=== PATIENT | male | born 1965 | race Caucasian/White ===

== ENCOUNTER 2017-12-18 21:00 | Inpatient (IN) | payer SELFPAY ==
[2017-12-18 21:43] LABS: #Basophils 0.1 thou/uL (0.0-0.2); #Eosinphils 0.2 thou/uL (0.0-0.7); #Lymphocytes 2.8 thou/uL (1.20-3.40); #Monocytes 0.5 thou/uL (0.11-0.59); #Neutrophils 6.8 thou/uL (1.40-6.50); %Basophils 0.7 % (0.0-1.0); %Eosinophils 1.7 % (0.0-10.0); %Lymphocytes 26.5 % (21.0-51.0); %Monocytes 5.2 % (0.0-10.0); %Neutrophils 65.9 % (42.0-75.0); Hemoglobin 13.8 g/dL (14.0-18.0); Mean Corpuscular HGB CONC 34.3 g/dL (32.0-36.0); Mean Corpuscular Hemoglobin 31.9 pg (27.0-31.0); Mean Corpuscular Volume 92.9 fL (78.0-98.0); Platelet Count 345 thou/uL (130-400); RBC Distribution Width 12.3 % (11.5-14.5); Red Blood Cell (RBC) Count 4.35 mill/uL (4.70-6.10); White Blood Cell (WBC) Count 10.4 thou/uL (4.8-10.8)
[2017-12-18 22:03] LABS: ALT (SGPT) 42 U/L (8-55); AST (SGOT) 28 U/L (5-34); Albumin 4.3 g/dL (3.5-5.0); Alkaline Phosphatase 66 U/L (40-150); Anion Gap 14 mmol/L (10-20); BUN (Urea Nitrogen) 15 mg/dL (8.4-25.7); Bilirubin, Total 0.4 mg/dL (0.2-1.2); CK (CPK) 312 U/L (30-200); Calc. Creatinine Clearance 0 mL/min (70-130); Calcium 9.4 mg/dL (7.8-10.44); Carbon Dioxide 22 mmol/L (22-29); Chloride 102 mmol/L (98-107); Estimated GFR-MDRD 80; Globulin 2.7 g/dL (2.4-3.5); Glucose 94 mg/dL (70-105); Lipase 13 U/L (8-78); Potassium 4.4 mmol/L (3.5-5.1); Sodium 134 mmol/L (136-145)
--- NOTE | 2017-12-18 22:04 | RAD ---
SINGLE VIEW OF THE CHEST: 12/18/17 COMPARISON: None. HISTORY: Chest pain that started three days ago. FINDINGS: Single view of the chest shows a normal sized cardiomediastinal silhouette. There is no evidence of c onsolidation, mass, or pleural effusion. The bones are unremarkable. IMPRESSION: No evidence of acute cardiopulmonary disease. POS: C
[2017-12-18 22:13] LABS: CKMB 4.9 ng/mL (0-6.6)
[2017-12-19 01:05] LABS: Troponin I 0.044 ng/mL (< 0.028)
[2017-12-19] MEDS ORDERED: Sodium Chloride 0.9% 1,000 ML IV SCH (02:13)
[2017-12-19] MEDS ORDERED: Ondansetron HCl/PF 4 MG/2 ML Vial IVP PRN (02:13)
[2017-12-19] MEDS ORDERED: Ondansetron ODT 4 MG TAB SL PRN (02:13)
[2017-12-19] MEDS ORDERED: Acetaminophen 325 MG TAB PO PRN (02:13)
[2017-12-19 02:38] VITALS: BMI 27.8
[2017-12-19] MEDS ORDERED: Clopidogrel Bisulfate 300 MG TAB PO SCH (02:45)
[2017-12-19] MEDS: Nitroglycerin 0.4 MG TAB (25 Tab Bottle) SL PRN ×3 (03:11→09:48)
[2017-12-19 05:02] LABS: Anion Gap 13 mmol/L (10-20); BUN (Urea Nitrogen) 14 mg/dL (8.4-25.7); Calc. Creatinine Clearance 100 mL/min (70-130); Calcium 9.2 mg/dL (7.8-10.44); Carbon Dioxide 23 mmol/L (22-29); Chloride 105 mmol/L (98-107); Estimated GFR-MDRD 71; Glucose 167 mg/dL (70-105); Potassium 3.7 mmol/L (3.5-5.1); Sodium 137 mmol/L (136-145)
[2017-12-19 05:06] LABS: Troponin I 0.016 ng/mL (< 0.028)
[2017-12-19 05:08] LABS: Band 1 % (5-11); Eosinophils 2 % (0-10); Hemoglobin 13.1 g/dL (14.0-18.0); Lymphocytes 37 % (21-51); MDiff Complete? YES; Mean Corpuscular HGB CONC 34.7 g/dL (32.0-36.0); Mean Corpuscular Hemoglobin 32.2 pg (27.0-31.0); Mean Corpuscular Volume 92.7 fL (78.0-98.0); Mean Platelet Volume 6.1 fL (7.4-10.4); Monocytes 3 % (0-10); Neutrophil 56 % (42-75); PLT Morphology Comment Appears Adequate; Platelet Count 266 thou/uL (130-400); RBC Distribution Width 12.3 % (11.5-14.5); Red Blood Cell (RBC) Count 4.09 mill/uL (4.70-6.10); White Blood Cell (WBC) Count 8.9 thou/uL (4.8-10.8)
[2017-12-19] MEDS ORDERED: Clopidogrel Bisulfate 75 MG TAB PO SCH (09:00)
[2017-12-19] MEDS ORDERED: Aspirin 325 mg Enteric Coated Tablet PO SCH (09:00)
[2017-12-19] MEDS ORDERED: Enoxaparin Sodium 100 MG/ML SYRINGE SC SCH (09:00)
[2017-12-19] MEDS: Lisinopril 10 MG TAB PO SCH ×2 (09:40→21:04)
[2017-12-19] MEDS: Famotidine 20 MG TAB PO SCH ×2 (09:41→21:08)
[2017-12-19] MEDS ORDERED: Nitroglycerin 2% Ointment 1 INCH/1 GM Packet TOP SCH ×2 (09:59→21:00)
[2017-12-19] MEDS ORDERED: Heparin 1,000 UNITS/ML VIAL SLOW IVP STA (09:59)
[2017-12-19] MEDS ORDERED: Lidocaine 1% (PF) 30 ML VIAL ONE (10:03)
[2017-12-19] MEDS ORDERED: Fentanyl 100 MCG/2 ML VIAL ONE ×2 (10:55→12:40)
[2017-12-19] MEDS ORDERED: Midazolam HCl 2 mg/2 ml Vial ONE (10:55)
[2017-12-19] MEDS ORDERED: Heparin 10,000 UNITS/1 ML VIAL ONE (10:55)
[2017-12-19] MEDS ORDERED: Nitroglycerin 2% Ointment 1 INCH/1 GM Packet ONE (10:55)
[2017-12-19] MEDS ORDERED: traMADol HCl 50 MG TAB PO PRN (11:45)
[2017-12-19] MEDS ORDERED: Acetaminophen/Codeine 30-300mg Tablet PO PRN (11:45)
[2017-12-19] MEDS ORDERED: Nitroglycerin 0.4 MG TAB (25 Tab Bottle) SL PRN (11:45)
[2017-12-19] MEDS ORDERED: Sodium Chloride 0.9% 200 ML IV SCH (11:45)
[2017-12-19] MEDS ORDERED: Nitroglycerin 50 MG/250 ML BOT 250 ML ONE (11:52)
[2017-12-19] MEDS: Metoprolol Tartrate 25 MG TAB PO SCH ×2 (11:56→21:04)
[2017-12-19] MEDS ORDERED: Nitroglycerin 50 MG/250 ML BOT 250 ML IVPB SCH ×2 (12:00→13:00)
[2017-12-19] MEDS ORDERED: Fentanyl 100 MCG/2 ML VIAL SLOW IVP PRN (13:00)
--- NOTE | 2017-12-19 13:07 | CON ---
DATE OF CONSULTATION: 12/19/2017 REASON FOR CONSULTATION: Chest pressure. HISTORY OF PRESENT ILLNESS: Mr. John Paul Manuel is a 52-year-old gentleman. The patient was admitted to [facility] with pressure in the middle of his chest going across his chest. It is coming and going. He said last night it was extremely intense. Apparently he did receive clopidogrel last night from what I can tell. He also initially thought he was aspirin allergic, but after further questioning, rashida werner said it just upset his stomach; therefore, he did receive aspirin. The patient has continued to stewart ve chest pressure, waxing and waning in the middle of his chest. Nitroglycerin seems to help. He al so says that seems to be worse when he takes a breath and it is somewhat better when he sits up. The patient's pain is persistent and he is diaphoretic intermittently. PAST MEDICAL HISTORY: He said he had a heart catheterization 8 or 9 years ago which did not show any obstructive stenosis. He does not know the ultimate diagnosis at that point. Apparently had a clos ure device at that point in the right groin. ALLERGIES: No true allergies known. He had some intolerance to aspirin with gastrointestinal upset. SOCIAL HISTORY: Quit smoking over a year ago. FAMILY HISTORY: Negative for heart disease at a young age. REVIEW OF SYSTEMS: CONSTITUTIONAL: No significant weight gain or loss. VISION: No changes. HEARING: No changes. PULMONARY: No cough or wheezing. GASTROINTESTINAL: No nausea, vomiting, diarrhea. SKIN: No rashes. NEUROLOGIC: No unilateral weakness or numbness. PSYCHIATRIC: No unusual depression or anxiety. HEMATOLOGIC: No unusual bruising. GENITOURINARY: No burning with urination. PHYSICAL EXAMINATION: GENERAL: This is a pleasant 52-year-old gentleman. He is in some discomfort with continued chest pa in. Nitroglycerin seems to improve the pain, but has not abolished it. The patient is somewhat appr ehensive. VITAL SIGNS: Blood pressure was elevated 162/74, pulse 68, regular. HEENT: Eyes; sclerae nonicteric. Mouth; mucous membranes moist. NECK: Supple, no lymphadenopathy. LUNGS: Clear, no wheezing, rales or rhonchi. CARDIAC: Normal S1, normal S2. There is no murmur, rub or gallop. ABDOMEN: Soft, nontender, no hepatosplenomegaly. EXTREMITIES: Warm, dry, no clubbing or cyanosis. There is no edema. Peripheral pulses; he has good posterior tibial pulses bilaterally. PERTINENT LABORATORY AND X-RAY FINDINGS: The EKG sinus rhythm, some rates as low as 61. There are no acute ST changes. PERTINENT LABORATORY: The troponin is a 0.020 with a peak of 0.044 for which he is in the indetermin ate range, but an increase from the initial. ASSESSMENT: Chest pressure at rest, unclear etiology. It seemed like this could either be unstable angina. There is also a possibility it could be pericardial in origin in view of the lack of EKG marla nges, also somewhat better with sitting up and worse with taking a breath, but at this time it is unc lear for sure what is causing his pain. The most definitive test is a heart catheterization, I would recommend that. I would not recommend stress testing in this gentleman with ongoing chest pain and indeterminate troponin. I discussed risk of the test with cardiac catheterization including stroke, heart attack, iodine allergy, loss of blood supply to the leg or kidney, stent thrombosis, stent rest enosis all discussed. The patient is not allergic to aspirin. PLAN: 1. Aspirin. 2. Nitrates. 3. Proceed to cardiac catheterization as outlined above. Risks explained. 4. If the patient does not have obstructive coronary artery disease we will give colchicine. I disc ussed the situation and indication for catheterization and he wishes to proceed.
--- NOTE | 2017-12-19 13:18 | HP ---
HISTORY OF PRESENT ILLNESS: This is a 52-year-old white male with past medical history of hypertension presenting with chest pain which has been ongoing for the past 3 days. Per the patient, he has been having this chest pain, but the pain has been intermittent and resolves on its own. However, at work, the patient developed this sudden chest pain which was constant, lasted for almost 25 minutes, was pressure-like in nature and the patient stated that the severity was 8/10 in nature and patient states that he went to his work nurse who took his blood pressure and blood pressure was 170 systolic and that prompted the patient to come to the ED. En route to the ED, the patient received aspirin and nitro. The patient's chest pain was relieved by the aspirin and nitro. The patient said that the pain was located substernal. REVIEW OF SYSTEMS: Positive for chest pain, shortness of breath otherwise as documented in the HPI. All other systems were reviewed and are negative. FAMILY HISTORY: The patient stated that mom at 59, mom had heart issues. The heart issues is not what killed mom, rather mom from liver transplant that went bad. PAST MEDICAL HISTORY: Hypertension. PAST SURGICAL HISTORY: Appendectomy and right ____ surgery repair. The patient states that he also had back surgery in 2006. SOCIAL HISTORY: The patient is a former tobacco smoker. The patient quit 10 years ago. ALLERGIES: No known drug allergies. CURRENT MEDICATIONS: The patient is on lisinopril 10 mg. PHYSICAL EXAMINATION: VITAL SIGNS: Blood pressure 126/96, pulse 83, respiratory rate 16, temperature 97. GENERAL APPEARANCE: The patient is lying in bed comfortably, does not appear to be in any acute distress. The patient is speaking full sentences. HEENT: Normocephalic, atraumatic. Pupils are equally round and reactive to light. Extraocular movements are intact. No scleral icterus. NECK: No JVD. Trachea is midline. Neck is supple. CARDIOVASCULAR: Positive S1, S2, regular rate and rhythm. No murmurs, no gallops or rubs appreciated. LUNGS: Clear to auscultation bilaterally. No wheezes, no rales, no rhonchi, appreciated. ABDOMEN: Nondistended, nontender, positive bowel sounds in all quadrants. There is no ecchymosis, no peritoneal signs noted. EXTREMITIES: Upper extremities and lower extremities 5/5 strength, good pulses bilaterally. NEUROLOGIC: Patient has no focal neurologic deficits noted. SKIN: Warm, dry and intact. No rashes appreciated. PSYCHIATRIC: Normal affect, alert, oriented x3. LABORATORY DATA: Pertinent positives; the patient had troponins that were 0.020 and went up 0.044. BNP is 10. Lipase is 13. Sodium 134. ASSESSMENT AND PLAN: 1. This is a 52-year-old male with typical chest pain, being admitted for non- ST-segment elevation myocardial infarction. At this point, we have the patient on aspirin, Plavix, Lovenox therapeutic, atorvastatin, lisinopril. We will continue the patient on these medications. We consulted Cardiology who ordered echo to be followed up. 2. Hypertension. We will continue the patient on home medication. MTDD
[2017-12-19] MEDS ORDERED: Iopamidol 370 76% 100 ML VIAL ONE (13:50)
[2017-12-19] MEDS ORDERED: DOPamine 400 MG/10 ML VIAL ONE (13:50)
[2017-12-19] MEDS ORDERED: Papaverine 60 MG/2 ML VIAL ONE (13:50)
[2017-12-19] MEDS ORDERED: Sodium Bicarb 50 MEQ/50 ML VIAL ONE (13:50)
[2017-12-19] MEDS ORDERED: Heparin 30,000 units/30 ml VIAL ONE (13:50)
[2017-12-19] MEDS ORDERED: Potassium Chloride 60 MEQ/30 ML VIAL ONE (13:50)
[2017-12-19] MEDS ORDERED: Lidocaine 2% PF 100 mg/5 ml Syringe ONE (13:50)
[2017-12-19] MEDS ORDERED: Mannitol 12.5 GM/50 ML ONE (13:50)
[2017-12-19] MEDS ORDERED: Thrombin 5000 UNITS/5 ML VIAL ONE (13:50)
[2017-12-19] MEDS ORDERED: Aminocaproic Acid 5 GM/20 ML VIAL ONE (13:50)
[2017-12-19] MEDS ORDERED: Heparin 5,000 UNITS/ML VIAL ONE (13:50)
[2017-12-19] MEDS ORDERED: Magnesium 5 GM/10 ML VIAL ONE (13:50)
[2017-12-19] MEDS ORDERED: Calcium Chloride 1 GM/10 ML Abboject SYRINGE ONE (13:50)
[2017-12-19] MEDS ORDERED: Protamine Sulfate 250 MG/25 ML VIAL ONE (13:50)
[2017-12-19] MEDS ORDERED: Diazepam 5 MG TAB PO PRN (14:37)
[2017-12-19] MEDS ORDERED: Communication Order-Pharmacy FS ONE (14:37)
[2017-12-19 16:07] LABS: Hemoglobin A1c 5.6 % (4.0-6.0)
--- NOTE | 2017-12-19 19:09 | CON ---
DATE OF CONSULTATION: 12/19/2017 REASON FOR CONSULTATION: Evaluate the patient for coronary artery bypass grafting. HISTORY OF PRESENT ILLNESS: Mr. Manuel is a 52-year-old gentleman who during work at [employer] b dulce to experience central chest pain. It was severe in nature. He had had multiple episodes over t he last 3 days of similar pain. This was more severe and he elected to come to the emergency departm ent. He was found to have indeterminate troponin levels. EKG was normal. Due to his pain, he was b rought to the cardiac cath lab manager and found to have tandem 70% lesions in his LAD. He also has a 70% lesion in OM3. I have been asked to see him to discuss coronary artery bypass grafting. Currently, he is rest ing comfortably without chest pain or shortness of breath in the recovery area. PAST MEDICAL HISTORY: Hypertension. PAST SURGICAL HISTORY: 1. Appendectomy. 2. Back surgery. 3. Right shoulder surgery x3. CURRENT MEDICATIONS: Lisinopril 10 mg every day. ALLERGIES: None. SOCIAL HISTORY: He quit smoking approximately a year ago. He does not use alcohol. He is a nd works at [employer]. REVIEW OF SYSTEMS: Ten point review of systems performed and is negative except as above. PHYSICAL EXAMINATION: GENERAL: Well-developed, well-nourished man resting comfortably in the cardiac cath lab manager recovery area. VITAL SIGNS: Height 5 feet 10 inches, weight 194 pounds, BSA is 2.09, temperature is 97.5, pulse is 68, blood pressure 162/74. HEENT: Sclerae nonicteric. Pupils equal, round bilaterally. NECK: Supple without bruit. CHEST: Clear bilaterally. HEART: Rhythm is regular without murmur. ABDOMEN: Soft and nontender without mass. EXTREMITIES: No cyanosis, clubbing or edema. VASCULAR: Palpable carotid, radial, femoral, dorsalis pedis, and posterior tibial pulses bilaterally . VENOUS: There are no venous varicosities or venous stasis changes. LYMPHATICS: No lymphedema or lymphadenopathy. PSYCHIATRIC: The patient is awake, alert, and oriented to person, place, and time. ASSESSMENT AND PLAN: This is a pleasant 52-year-old gentleman with severe left anterior descending, tandem stenoses and ostial OM3 lesion. I have discussed coronary artery bypass grafting with him. H e is agreeable to proceed. Risks, benefits, and options have been outlined. We will plan for surger y tomorrow.
[2017-12-19] MEDS ORDERED: Atorvastatin Calcium 40 MG TAB PO SCH (21:00)
[2017-12-19] MEDS: Acetaminophen/Codeine 30-300mg Tablet PO PRN (21:09)
--- NOTE | 2017-12-19 23:55 | PDOC.EVN ---
Event Note - Event Note Event Note: Spoke with cardiology pt going for cardiac cath today. Multiple attempts to see pt but pt not in room. Lab reviewed and cath reviewed. Pt will be evaluated by CT surgeon.
[2017-12-20] MEDS: Acetaminophen/Codeine 30-300mg Tablet PO PRN (04:49)
[2017-12-20] MEDS ORDERED: Albumin 5% 500 ML ONE (06:34)
[2017-12-20] MEDS ORDERED: Midazolam HCl 5 mg/5 ml Vial ONE (06:58)
[2017-12-20] MEDS ORDERED: Vecuronium 10 MG VIAL ONE ×2 (06:58→14:15)
[2017-12-20] MEDS ORDERED: Fentanyl 250 MCG/5 ML VIAL ONE (06:58)
[2017-12-20] MEDS ORDERED: Dexmedetomidine 200 MCG/2 ML VIAL ONE (06:58)
[2017-12-20] MEDS ORDERED: Heparin 10,000 UNITS/1 ML VIAL 30,000 UNITS in Sodium Chloride 0.9% 1,000 ML FS SCH (07:00)
[2017-12-20] MEDS ORDERED: CEFAZOLIN/Water 2 GM/20 ML SYRINGE ONE (07:18)
--- NOTE | 2017-12-20 07:24 | EKG ---
Test Reason : Blood Pressure : / mmHG Vent. Rate : 061 BPM Atrial Rate : 061 BPM P-R Int : 162 ms QRS Dur : 088 ms QT Int : 408 ms P-R-T Axes : 072 035 061 degrees QTc Int : 410 ms Normal sinus rhythm Normal ECG When compared with ECG of 18-DEC-2017 21:06, (Unconfirmed) No significant change was found Confirmed by DR. Darius WELLS ([id number]) on 12/20/2017 7:24:11 AM Referred By: ALVARO Confirmed By:DR. Darius WELLS
[2017-12-20] MEDS: Metoprolol Tartrate 25 MG TAB PO SCH (09:00)
[2017-12-20] MEDS ORDERED: Phenylephrine HCL 10 MG/ML VIAL ONE (09:06)
[2017-12-20] MEDS ORDERED: Fentanyl 100 MCG/2 ML VIAL ONE (11:03)
[2017-12-20 12:57] LABS: Actual Bicarbonate (HCO3a) 19.8 mEq/L (22-28); CO2 Tension 34.4 mmHg (35.0-45.0); O2 Tension (PaO2) 238.3 mmHg (80.0-100.0); pH, Arterial 7.38 (7.35-7.45)
[2017-12-20 12:58] LABS: Base Excess (BEa) -4.7 mEq/L (-2.0 to +3.0); Calcium, Ionized 1.16 mmol/L (1.12-1.30); Hemoglobin (Hb) 11.3 g/dL (14.0-18.0); Potassium - ABG Lab 4.4 mmol/L (3.70-5.30); Puncture Site ALINE
[2017-12-20] MEDS ORDERED: Acetaminophen 325 MG TAB PO PRN (12:59)
[2017-12-20] MEDS ORDERED: Fentanyl 100 MCG/2 ML VIAL SLOW IVP PRN (12:59)
[2017-12-20] MEDS ORDERED: Nitroglycerin 50 MG/250 ML BOT 250 ML IVPB PRN (12:59)
[2017-12-20] MEDS ORDERED: Promethazine HCl 25 MG/ML VIAL IM PRN (12:59)
[2017-12-20] MEDS ORDERED: Guaifenesin DM 100-10/5 ML UDCUP PO PRN (12:59)
[2017-12-20] MEDS ORDERED: Bisacodyl 5 MG TAB PO PRN (12:59)
[2017-12-20] MEDS ORDERED: Norepinephrine 8 MG/0.9% NS 250 ML IVPB PRN (12:59)
[2017-12-20] MEDS ORDERED: D5 1/2 NS w/20 mEq KCL 1,000 ML IV SCH (12:59)
[2017-12-20] MEDS ORDERED: hydrALAZINE 20 MG/ML VIAL SLOW IVP PRN (12:59)
[2017-12-20] MEDS ORDERED: Potassium Chloride 20 MEQ/100 ML PREMIX BAG IVPB PRN (12:59)
[2017-12-20] MEDS ORDERED: HYDROcodone/Acetaminophen 5/325 mg Tablet PO PRN (12:59)
[2017-12-20] MEDS ORDERED: Magnesium 2 GM/NS 0.9% 100 ML 2 GM in Premix Bag 1 BAG IVPB SCH (12:59)
[2017-12-20] MEDS ORDERED: Hetastarch 6% 500 ML 500 ML IVPB PRN (12:59)
[2017-12-20] MEDS ORDERED: Bisacodyl 10 MG SUPP PR PRN (12:59)
[2017-12-20] MEDS ORDERED: Mag-Al 1200 mg/1200 mg/30 ML UDCUP PO PRN (12:59)
[2017-12-20 13:11] LABS: #Eosinphils 0.1 thou/uL (0.0-0.7); #Lymphocytes 1.8 thou/uL (1.20-3.40); #Monocytes 0.9 thou/uL (0.11-0.59); %Basophils 0.3 % (0.0-1.0); %Eosinophils 0.5 % (0.0-10.0); %Lymphocytes 10.7 % (21.0-51.0); %Monocytes 5.3 % (0.0-10.0); %Neutrophils 83.3 % (42.0-75.0); Hemoglobin 10.8 g/dL (14.0-18.0); Mean Corpuscular HGB CONC 33.8 g/dL (32.0-36.0); Mean Corpuscular Hemoglobin 31.9 pg (27.0-31.0); Mean Corpuscular Volume 94.3 fL (78.0-98.0); Platelet Count 194 thou/uL (130-400); RBC Distribution Width 12.2 % (11.5-14.5); Red Blood Cell (RBC) Count 3.38 mill/uL (4.70-6.10); White Blood Cell (WBC) Count 16.8 thou/uL (4.8-10.8)
--- NOTE | 2017-12-20 13:16 | RAD ---
CHEST 1 VIEW: HISTORY: Post open heart surgery. COMPARISON: Radiograph 12/18/17. FINDINGS: The patient is intubated. The endotracheal tube tip is just below the level of the clavicles above t he mario. Central venous catheter with tip at the right atrium. Mediastinal drains are present. IMPRESSION: Expected postoperative findings without complication. POS: BECKY
[2017-12-20 13:19] LABS: INR-International Normal Ratio 1.3; PTT 36.6 SEC (22.9-36.1); Prothrombin Time 16.3 SEC (12.0-14.7)
[2017-12-20] MEDS ORDERED: Insulin Regular 300 UNITS/3 ML VIAL SC PRN (13:41)
[2017-12-20] MEDS ORDERED: Dextrose 50% Abboject 50 ML SYRINGE SLOW IVP PRN (13:41)
[2017-12-20] MEDS ORDERED: Dextrose 5% in Water 1,000 ML IV PRN (13:41)
[2017-12-20 13:47] LABS: Anion Gap 10 mmol/L (10-20); BUN (Urea Nitrogen) 10 mg/dL (8.4-25.7); Calc. Creatinine Clearance 149 mL/min (70-130); Calcium 7.8 mg/dL (7.8-10.44); Carbon Dioxide 19 mmol/L (22-29); Chloride 109 mmol/L (98-107); Estimated GFR-MDRD Greater than 90; Glucose 119 mg/dL (70-105); Potassium 4.5 mmol/L (3.5-5.1); Sodium 133 mmol/L (136-145)
[2017-12-20] MEDS: Ondansetron HCl/PF 4 MG/2 ML Vial IVP PRN ×2 (13:49→22:33)
[2017-12-20] MEDS ORDERED: PROPOFOL 200 MG/20 ML VIAL ONE (14:15)
[2017-12-20] MEDS ORDERED: Lidocaine 1% PF 5 ML VIAL ONE (14:15)
[2017-12-20] MEDS ORDERED: ePHEDrine/0.9% NaCl/PF SYRINGE 50 mg/10 ml ONE (14:15)
[2017-12-20] MEDS ORDERED: PHENYLEPHRINE-NS 100 MCG/ML 10 ML SYRINGE ONE (14:15)
[2017-12-20] MEDS: CEFAZOLIN/Water 2 GM/20 ML SYRINGE SLOW IVP SCH ×2 (14:31→22:33)
[2017-12-20 15:10] LABS: Actual Bicarbonate (HCO3a) 17.6 mEq/L (22-28); Base Excess (BEa) -6.9 mEq/L (-2.0 to +3.0); CO2 Tension 32.2 mmHg (35.0-45.0); Calcium, Ionized 1.15 mmol/L (1.12-1.30); Carboxyhemoglobin (COHb) 0.9 gm% (0.0-3.0); Hemoglobin (Hb) 11.8 g/dL (14.0-18.0); O2 Tension (PaO2) 118.3 mmHg (80.0-100.0); Potassium - ABG Lab 4.4 mmol/L (3.70-5.30); Puncture Site ALINE; pH, Arterial 7.36 (7.35-7.45)
[2017-12-20] MEDS ORDERED: Sodium Bicarb 50 MEQ/50 ML Abboject 8.4% SYRINGE ONE ×2 (15:16→15:18)
--- NOTE | 2017-12-20 15:23 | PRG ---
DATE OF SERVICE: 12/20/2017 SUBJECTIVE: Mr. Manuel is doing well postoperatively. He still on the ventilator. OBJECTIVE: LUNGS: Clear. CARDIAC: Normal S1, normal S2. EKG shows no acute changes. ASSESSMENT: Status post bypass, doing well. No changes at the present time.
--- NOTE | 2017-12-20 15:41 | PDOC.PN ---
- Subjective Encounter Start Date: 12/20/17 Encounter Start Time: 15:00 Subjective: f/u for CAD, s/p CABG x 3v today[facility] - Objective Resuscitation Status: Resuscitation Status FULL:Full Resuscitation MAR Reviewed: Yes Vital Signs & Weight: Vital Signs (12 hours) Temp Pulse Resp BP Pulse Ox 12/20/17 15:34 100 12/20/17 15:02 64 86/44 L 12/20/17 12:59 58 L 136/68 12/20/17 07:25 98.4 F 60 16 95 12/20/17 04:00 98.4 F Weight Weight 194 lb 0.108 oz Most Recent Monitor Data Heart Rate from ECG 63 NIBP 104/69 NIBP BP-Mean 80 Respiration from ECG 10 SpO2 96 I&O: 12/19/17 12/20/17 12/21/17 06:59 06:59 06:59 Intake Total 240 993 Output Total 1125 2250 Balance -885 -1257 Result Diagrams: 12/20/17 12:48 12/20/17 12:48 Additional Labs: Accuchecks 12/20/17 12/20/17 12/20/17 13:05 11:42 10:59 POC Glucose 108 117 H 129 H 12/20/17 12/20/17 12/20/17 10:27 09:38 08:13 POC Glucose 119 H 125 H 95 Laboratory Tests 12/18/17 12/19/17 12/19/17 21:32 04:10 04:10 WBC 8.9 Hgb 13.8 L 13.1 L Sodium 137 Hemoglobin A1c 12/19/17 04:10 WBC Hgb Sodium Hemoglobin A1c 5.6 Radiology Reviewed by me: Yes (PCXR - ETT and CVC in appropriate position) EKG Reviewed by me: Yes (Tele - SR) Phys Exam - Physical Examination opens eyes to name, moves arms HEENT: PERRLA, sclera anicteric, oral pharynx no lesions Neck: no nodes, no JVD, supple, full ROM Respiratory: no wheezing, no rales, no rhonchi, clear to auscultation bilateral S1, S2 Cardiovascular: RRR, no significant murmur, no rub, gallop Gastrointestinal: soft, non-tender, no distention, positive bowel sounds Musculoskeletal: no edema, pulses present sedate but opens eyes to name Skin: normal turgor, cap refill <2 seconds Deviation from normal: Almanzar with clear urine Dx/Plan (1) CAD (coronary artery disease) Code(s): I25.10 - ATHSCL HEART DISEASE OF [place] CORONARY ARTERY W/O ANG PCTRS Status: Acute Qualifiers: Associated angina: with unstable angina Comment: s/p CABG x 3v, continue supportive mgmt, ASA, statin, B-kamille (2) HTN (hypertension) Code(s): I10 - ESSENTIAL (PRIMARY) HYPERTENSION Status: Chronic Qualifiers: Hypertension type: essential hypertension Qualified Code(s): I10 - Essential (primary) hypertension Comment: Hypotension currently, continue low-dose B-kamille (3) HLD (hyperlipidemia) Code(s): E78.5 - HYPERLIPIDEMIA, UNSPECIFIED Status: Chronic Comment: Continue statin therapy (4) Status post coronary artery bypass graft Code(s): Z95.1 - PRESENCE OF AORTOCORONARY BYPASS GRAFT Status: Acute Comment: CABG x 3v, continue routine post-CABG protocol - Plan respiratory therapy, DVT proph w/SCDs Continue supportive mgmt -: Wean off mech vent as clinically tolerated -: Pain control -: ASA 325mg daily -: Lipitor 40mg daily * AM lab: BMP, CBC * PCXR in am
--- NOTE | 2017-12-20 16:20 | EKG ---
Test Reason : POST CABG Blood Pressure : / mmHG Vent. Rate : 061 BPM Atrial Rate : 061 BPM P-R Int : 162 ms QRS Dur : 082 ms QT Int : 432 ms P-R-T Axes : 069 058 027 degrees QTc Int : 434 ms Normal sinus rhythm Normal ECG When compared with ECG of 19-DEC-2017 06:52, T wave amplitude has increased in Lateral leads Confirmed by DR. Darius WELLS ([id number]) on 12/20/2017 4:19:43 PM Referred By: Keenan THAKKAR Confirmed By:DR. Darius WELLS
--- NOTE | 2017-12-20 16:36 | OP ---
DATE OF OPERATION: 12/20/2017 PREOPERATIVE DIAGNOSES: Coronary artery disease/hypertension. POSTOPERATIVE DIAGNOSES: Coronary artery disease/hypertension. PROCEDURE: Coronary artery bypass grafting x3: 1. Left internal mammary artery to 1.0 mm distal LAD - good conduit and small target. 2. Reverse saphenous vein to 1.0 mm diagonal - good conduit and small target. 3. Reverse saphenous vein to 1.0 mm OM3 - small conduit, small target. Note greater saphenous vein was harvested from both legs from the thigh and lower leg. Conduit was at a premium and the venous c onduit was marginal for most of the length. We were able to find a usable conduit for the 2 venous b ypass grafts. I would not consider him for redo bypass due to the size of his coronary arteries and conduit availability. SURGEON: Loco Torres M.D. ANESTHESIA: General endotracheal, Dr. Lexie Bland. PUMP TIME: 83 minutes. CROSS-CLAMP TIME: 44 minutes. LOW CORE TEMP: 32-degree Celsius. PANTOGRAPH I ENGRAVER: Adrian Regalado. DRAINS: 24-[place] chest tubes x2. DRIPS: None. TRANSFUSIONS: None. PROCEDURE IN DETAIL: After all consent was obtained, the patient was brought to the operating room a nd placed supine and sharp in table. Appropriate anesthesia monitor placed and general endotracheal anesthesia induced. Chest, abdomen, and legs were prepped and draped in usual sterile fashion. A le ngthy exploration was performed looking for usable venous conduit. Eventually, we had enough conduit to use for bypass graft. The vein was prepared for bypass. Wounds were irrigated and closed in lay ers. Median sternotomy was performed. Left internal mammary artery was harvested as a pedicle graft . The patient was systemically heparinized. Distal pedicle was divided and infused with papaverine. Thymic fat and pericardium were divided with electrocautery. Pericardial stay sutures were placed. Aortic and atrial cannulation was performed. After adequate heparinization, retrograde prime was p erformed. The patient was placed on cardiopulmonary bypass. Distal targets were marked. Aortic independent crop consultant ss-clamp was applied and antegrade sanguinous cardioplegic arrest obtained. One liter of antegrade c old cardioplegia was given. Topical cold solution was used. Reverse saphenous vein was anastomosed to the OM3 in end-to-side fashion with running 7-0 Prolene suture. A 1 mm probe passed proximally an d distally prior to completion of anastomosis. Anastomosis was tested and was hemostatic. Reverse s aphenous vein was anastomosed to the diagonal and end-to-side fashion with running 7-0 Prolene suture . A 1 mm probe passed proximally and distally prior to completion of the anastomosis. Anastomosis w as tested and was hemostatic. Mammary artery was brought the wound in the pericardium and anastomose d the distal LAD in end-to-side fashion with running 7-0 Prolene suture. Prior to completion of the anastomosis, a 1 mm probe passed proximally and distally. On release of mammary clamps, good hooding anastomosis and good distal flow. Pedicle was secured with interrupted 6-0 Prolene suture. Cross-c lamp was removed and partial occluding clamp placed. Saphenous vein to the OM was anastomosed to the aortic root. Saphenous vein to the diagonal was anastomosed to the sidewall of the OM graft. Parti al occlusion clamp was removed and grafts deaired. Anastomoses were inspected for hemostasis, which was good. The patient was warmed and weaned from cardiopulmonary bypass. After resumption of sinus rhythm, good hemodynamics, and temperature greater than 36.5, bypass was discontinued. Transfusions were given. Protamine was administered. Decannulation was performed and pursestring sutures secured . Vancomycin paste was placed on the sternal edges. After adequate hemostasis had been obtained, 24 -[place] chest tubes were placed in mediastinum. Sternum was closed with #7 wire. Sternum was treate d with platelet-rich plasma and wires twisted. Wounds were irrigated, treated with platelet-poor dennis sma, and closed in multiple layers. Needle, sponge, and instrument counts were all reported correct at the end of the procedure.
[2017-12-20] MEDS: Fentanyl 100 MCG/2 ML VIAL SLOW IVP PRN ×2 (17:14→20:54)
[2017-12-20] MEDS: Ketorolac Tromethamine 30 MG/ML VIAL IVP SCH ×2 (17:48→23:56)
[2017-12-20 18:53] LABS: Hemoglobin 10.9 g/dL (14.0-18.0)
[2017-12-20 19:06] LABS: Potassium 4.4 mmol/L (3.5-5.1)
[2017-12-20] MEDS: Famotidine/PF 20 mg/2ml Vial SLOW IVP SCH (20:54)
[2017-12-20] MEDS: HYDROcodone/Acetaminophen 5/325 mg Tablet PO PRN (22:33)
[2017-12-21 03:47] LABS: #Eosinphils 0.1 thou/uL (0.0-0.7); #Lymphocytes 1.8 thou/uL (1.20-3.40); #Monocytes 0.7 thou/uL (0.11-0.59); #Neutrophils 6.6 thou/uL (1.40-6.50); %Basophils 0.4 % (0.0-1.0); %Eosinophils 0.8 % (0.0-10.0); %Lymphocytes 19.2 % (21.0-51.0); %Monocytes 7.8 % (0.0-10.0); %Neutrophils 71.7 % (42.0-75.0); Hemoglobin 10.3 g/dL (14.0-18.0); Mean Corpuscular HGB CONC 34.1 g/dL (32.0-36.0); Mean Corpuscular Hemoglobin 32.1 pg (27.0-31.0); Mean Corpuscular Volume 94.2 fL (78.0-98.0); Mean Platelet Volume 6.3 fL (7.4-10.4); Platelet Count 193 thou/uL (130-400); RBC Distribution Width 12.5 % (11.5-14.5); White Blood Cell (WBC) Count 9.3 thou/uL (4.8-10.8)
[2017-12-21 04:11] LABS: Anion Gap 9 mmol/L (10-20); BUN (Urea Nitrogen) 9 mg/dL (8.4-25.7); Calc. Creatinine Clearance 138 mL/min (70-130); Calcium 7.9 mg/dL (7.8-10.44); Carbon Dioxide 22 mmol/L (22-29); Chloride 106 mmol/L (98-107); Estimated GFR-MDRD Greater than 90; Glucose 116 mg/dL (70-105); Potassium 4.1 mmol/L (3.5-5.1); Sodium 133 mmol/L (136-145)
[2017-12-21] MEDS: Ketorolac Tromethamine 30 MG/ML VIAL IVP SCH ×3 (04:32→17:54)
[2017-12-21] MEDS: HYDROcodone/Acetaminophen 5/325 mg Tablet PO PRN ×2 (04:33→11:30)
[2017-12-21] MEDS: Famotidine/PF 20 mg/2ml Vial SLOW IVP SCH ×2 (08:54→20:38)
[2017-12-21] MEDS: CEFAZOLIN/Water 2 GM/20 ML SYRINGE SLOW IVP SCH (08:55)
[2017-12-21] MEDS ORDERED: Aspirin 325 MG TAB PO SCH (09:00)
[2017-12-21] MEDS ORDERED: Magnesium 2 GM/NS 0.9% 100 ML 2 GM in Premix Bag 1 BAG IVPB SCH (09:00)
--- NOTE | 2017-12-21 09:19 | RAD ---
SEMIUPRIGHT PORTABLE CHEST 1 VIEW: HISTORY: A 52-year-old male with a history of postop open heart followup. COMPARISON: 12/20/17. FINDINGS: Postop midline sternotomy with right subclavian catheter and chest tube in place. Minimal linear str anding in both lung bases and some pleural effusion changes in the left base, postoperative. No new process. IMPRESSION: Stable chest with some postoperative changes. No significant new process. POS: BECKY
--- NOTE | 2017-12-21 10:27 | PDOC.PN ---
- Subjective Encounter Start Date: 12/21/17 Encounter Start Time: 10:26 Mr. Manuel was seen today in follow-up of CAD. He is post CABG, and is noting a bit of soreness in his chest, but denies dyspnea, and denies feeling dizzy or lightheaded. - Objective Resuscitation Status: Resuscitation Status FULL:Full Resuscitation MAR Reviewed: Yes Vital Signs & Weight: Vital Signs (12 hours) Temp Pulse Resp Pulse Ox 12/21/17 07:40 98.5 F 12/21/17 07:15 98.7 F 90 20 100 12/21/17 06:57 99 12/21/17 03:00 98.7 F 12/20/17 23:59 98.5 F Weight Weight 203 lb 4.259 oz Most Recent Monitor Data Heart Rate from ECG 89 NIBP 145/81 NIBP BP-Mean 95 Respiration from ECG 23 SpO2 96 I&O: 12/20/17 12/21/17 12/22/17 06:59 06:59 06:59 Intake Total 993 5879 260 Output Total 2257 2759 285 Balance -1257 -670 -25 Result Diagrams: 12/21/17 03:30 12/21/17 03:30 Additional Labs: Accuchecks 12/21/17 12/21/17 12/20/17 08:46 03:30 23:56 POC Glucose 101 112 H 104 12/20/17 12/20/17 12/20/17 21:01 17:23 13:05 POC Glucose 115 H 134 H 108 12/20/17 12/20/17 12/20/17 11:42 10:59 10:27 POC Glucose 117 H 129 H 119 H Phys Exam - Physical Examination HEENT: PERRLA, sclera anicteric Respiratory: no wheezing, no rales, no rhonchi + decreased breath sounds at the bases Cardiovascular: RRR, no significant murmur, no rub no gallop Gastrointestinal: soft, non-tender, no distention, positive bowel sounds Musculoskeletal: no edema Dx/Plan (1) CAD (coronary artery disease) Code(s): I25.10 - ATHSCL HEART DISEASE OF [place] CORONARY ARTERY W/O ANG PCTRS Status: Acute Qualifiers: Associated angina: with unstable angina Comment: s/p CABG x 3v, continue supportive mgmt, ASA, statin, B-kamille (2) HTN (hypertension) Code(s): I10 - ESSENTIAL (PRIMARY) HYPERTENSION Status: Chronic Qualifiers: Hypertension type: essential hypertension Qualified Code(s): I10 - Essential (primary) hypertension Comment: Hypotension currently, continue low-dose B-kamille (3) HLD (hyperlipidemia) Code(s): E78.5 - HYPERLIPIDEMIA, UNSPECIFIED Status: Chronic Comment: Continue statin therapy (4) Status post coronary artery bypass graft Code(s): Z95.1 - PRESENCE OF AORTOCORONARY BYPASS GRAFT Status: Acute Comment: CABG x 3v, continue routine post-CABG protocol - Plan * CAD- with unstable angina- he was found to have 2 vessel CAD- with 70% tenosis in the LAD and OM3 and he is s/p 3 vessel CABG * He is clinically stable, blood pressure and heart rate are stable * Blood glucose is stable * HTN- blood pressure is again stable on low dose Lisinopril, Metoprolol has been held * Continue as per CV- surgery.
--- NOTE | 2017-12-21 19:20 | EKG ---
Test Reason : Blood Pressure : / mmHG Vent. Rate : 078 BPM Atrial Rate : 078 BPM P-R Int : 162 ms QRS Dur : 088 ms QT Int : 362 ms P-R-T Axes : 060 053 062 degrees QTc Int : 412 ms Normal sinus rhythm Normal ECG Confirmed by MARY PARRA DO ([id number]), editor city ALEKS AGUILAR ([id number]) on 12/21/2017 7:19:48 PM Referred By: Confirmed By:MARY PARRA DO
[2017-12-21] MEDS ORDERED: Non-Formulary Item 1 EACH (Lovastatin [Lovastatin] 10 MG) PO SCH (21:00)
[2017-12-21] MEDS ORDERED: Simvastatin 5 MG TAB PO SCH (21:00)
[2017-12-21] MEDS: Fentanyl 100 MCG/2 ML VIAL SLOW IVP PRN (22:16)
[2017-12-22] MEDS: Ketorolac Tromethamine 30 MG/ML VIAL IVP SCH ×2 (00:27→05:57)
[2017-12-22 05:33] LABS: #Eosinphils 0.1 thou/uL (0.0-0.7); #Lymphocytes 2.5 thou/uL (1.20-3.40); #Monocytes 1.3 thou/uL (0.11-0.59); #Neutrophils 7.3 thou/uL (1.40-6.50); %Basophils 0.3 % (0.0-1.0); %Eosinophils 0.6 % (0.0-10.0); %Lymphocytes 22.3 % (21.0-51.0); %Monocytes 11.4 % (0.0-10.0); %Neutrophils 65.5 % (42.0-75.0); Hemoglobin 9.3 g/dL (14.0-18.0); Mean Corpuscular HGB CONC 33.6 g/dL (32.0-36.0); Mean Corpuscular Hemoglobin 31.7 pg (27.0-31.0); Mean Corpuscular Volume 94.6 fL (78.0-98.0); Mean Platelet Volume 6.4 fL (7.4-10.4); Platelet Count 162 thou/uL (130-400); RBC Distribution Width 12.4 % (11.5-14.5); Red Blood Cell (RBC) Count 2.94 mill/uL (4.70-6.10); White Blood Cell (WBC) Count 11.1 thou/uL (4.8-10.8)
[2017-12-22 05:41] LABS: Anion Gap 9 mmol/L (10-20); BUN (Urea Nitrogen) 7 mg/dL (8.4-25.7); Calc. Creatinine Clearance 150 mL/min (70-130); Calcium 8.3 mg/dL (7.8-10.44); Carbon Dioxide 26 mmol/L (22-29); Chloride 105 mmol/L (98-107); Estimated GFR-MDRD Greater than 90; Glucose 95 mg/dL (70-105); Sodium 136 mmol/L (136-145)
--- NOTE | 2017-12-22 07:57 | PDOC.PN ---
- Subjective Encounter Start Date: 12/22/17 Encounter Start Time: 07:56 Mr. Manuel was seen today in follow-up of CAD and post CABG. He says he is feeling better today. He has coughed up a little phlem. He denies chest pain or dyspnea. - Objective Resuscitation Status: Resuscitation Status FULL:Full Resuscitation MAR Reviewed: Yes Vital Signs & Weight: Vital Signs (12 hours) Temp 12/22/17 07:00 98.7 F 12/22/17 04:00 99.2 F 12/22/17 00:00 98.4 F 12/21/17 20:00 98.2 F Weight Weight 199 lb 1.239 oz Most Recent Monitor Data Heart Rate from ECG 92 NIBP 123/70 NIBP BP-Mean 92 Respiration from ECG 17 SpO2 97 I&O: 12/21/17 12/22/17 12/23/17 06:59 06:59 06:59 Intake Total 2089 1550 Output Total 2759 2950 300 Balance -670 1400 -300 Result Diagrams: 12/22/17 05:22 12/22/17 05:22 Additional Labs: Accuchecks 12/21/17 08:46 POC Glucose 101 Phys Exam - Physical Examination HEENT: PERRLA, sclera anicteric Respiratory: no wheezing, no rales, no rhonchi decreased breath sounds at the bases, coarse breath sounds bilaterally Cardiovascular: RRR, no significant murmur, no rub no gallop Gastrointestinal: soft, non-tender, no distention, positive bowel sounds Musculoskeletal: no edema Dx/Plan (1) CAD (coronary artery disease) Code(s): I25.10 - ATHSCL HEART DISEASE OF [place] CORONARY ARTERY W/O ANG PCTRS Status: Acute Qualifiers: Associated angina: with unstable angina Comment: s/p CABG x 3v, continue supportive mgmt, ASA, statin, B-kamille (2) HTN (hypertension) Code(s): I10 - ESSENTIAL (PRIMARY) HYPERTENSION Status: Chronic Qualifiers: Hypertension type: essential hypertension Qualified Code(s): I10 - Essential (primary) hypertension Comment: Hypotension currently, continue low-dose B-kamille (3) HLD (hyperlipidemia) Code(s): E78.5 - HYPERLIPIDEMIA, UNSPECIFIED Status: Chronic Comment: Continue statin therapy (4) Status post coronary artery bypass graft Code(s): Z95.1 - PRESENCE OF AORTOCORONARY BYPASS GRAFT Status: Acute Comment: CABG x 3v, continue routine post-CABG protocol - Plan * CAD- s/p CABG- he is clinically stable- blood pressure and heart rate have been good. * He likely will be moved out of the ICU- * HTN- blood pressure is stable- continue Lisinopril * Continue aspirin and satin therapy * Continue Cardiac Rehab.
[2017-12-22] MEDS ORDERED: Mineral Oil ENEMA PR PRN (08:19)
[2017-12-22] MEDS ORDERED: Milk Of Magnesia 30 ML UDCUP PO PRN (08:19)
[2017-12-22] MEDS ORDERED: Mag-Al 1200 mg/1200 mg/30 ML UDCUP PO PRN (08:19)
[2017-12-22] MEDS ORDERED: Ondansetron HCl/PF 4 MG/2 ML Vial IVP PRN (08:19)
[2017-12-22] MEDS ORDERED: Nitroglycerin 0.4 MG TAB (25 Tab Bottle) SL PRN (08:19)
[2017-12-22] MEDS ORDERED: Guaifenesin DM 100-10/5 ML UDCUP PO PRN (08:19)
[2017-12-22] MEDS ORDERED: Acetaminophen 325 MG TAB PO PRN (08:19)
[2017-12-22] MEDS ORDERED: Bisacodyl 10 MG SUPP PR PRN (08:19)
[2017-12-22] MEDS ORDERED: Potassium Chloride 10 MEQ TAB PO SCH (08:19)
[2017-12-22] MEDS ORDERED: Fentanyl 100 MCG/2 ML VIAL SLOW IVP PRN (08:19)
[2017-12-22] MEDS: Metoprolol Tartrate 25 MG TAB PO SCH ×2 (08:51→20:24)
[2017-12-22] MEDS: Aspirin 325 mg Enteric Coated Tablet PO SCH (08:51)
[2017-12-22] MEDS: Furosemide 40 MG TAB PO SCH (08:51)
[2017-12-22] MEDS: Famotidine 20 MG TAB PO SCH ×2 (08:51→20:23)
[2017-12-22] MEDS ORDERED: Lisinopril 2.5 MG TAB PO SCH (09:00)
--- NOTE | 2017-12-22 09:46 | RAD ---
SEMIUPRIGHT PORTABLE CHEST 1 VIEW: HISTORY: A 52-year-old male with a history of postop open heart. FINDINGS: Some progressive-appearing pleural and parenchymal changes in the left base. Chest tube and right santiago bclavian catheter is in place. No pneumothorax. IMPRESSION: Some progressive pleural and parenchymal opacity changes in the left base. Continued short-term foll owup. POS: ARNIE
[2017-12-22] MEDS: HYDROcodone/Acetaminophen 5/325 mg Tablet PO PRN ×3 (10:20→20:25)
--- NOTE | 2017-12-22 19:00 | PDOC.CTH ---
<Karin Stanley - Last Filed: 12/22/17 18:58> Cardiology Progress Note - Subjective The pt seen and examined. No overnight events. No cardiac complaints. He cont. having intermittent pain to surgical site. - Objective Vital Signs Temp Pulse Pulse Pulse Resp BP BP 12/22/17 15:34 99.1 F 83 18 12/22/17 14:30 12/22/17 12:13 77 80 121/68 129/70 12/22/17 11:00 98.4 F 12/22/17 09:04 90 85 120/67 128/64 12/22/17 08:00 98.7 F 94 12 12/22/17 07:00 98.7 F BP Pulse Ox Pulse Ox Pulse Ox 12/22/17 15:34 131/67 100 12/22/17 14:30 100 12/22/17 12:13 98 97 12/22/17 11:00 12/22/17 09:04 99 99 12/22/17 08:00 100 12/22/17 07:00 Weight 199 lb 1.239 oz 12/21/17 12/22/17 12/23/17 06:59 06:59 06:59 Intake Total 2089 1550 1080 Output Total 7089 2950 1850 Balance -508 -0953 -282 - Physical Examination General/Neuro: alert & oriented x3 Neck: no JVD present Lungs: CTA Heart: RRR Abdomen: soft Extremities: other: (No edema) - Telemetry Telemetry Rhythm: SR - Labs Result Diagrams: 12/22/17 05:22 12/22/17 05:22 Troponin/CKMB CK-MB (CK-2) 4.9 ng/mL (0-6.6) 12/18/17 21:32 Troponin I 0.016 ng/mL (< 0.028) 12/19/17 04:10 - Assessment/Plan 1. CAD with s/p CABG x3 with SINGH-LAD, RSV-diag adn OM3 - stable with Metoprolol 12.5mg BID, ASA 325mg, Lipitor; EF > 60% by cath. 2. HTN - stable with current med. 3. Hyperlipidemia - on Statin. MAR reviewed * Per Dr Torres, the pt is not good candidate for re-do CABG in future. * Review of Systems - Review of Systems Constitutional: reports: weakness EENTM: reports: no symptoms reported Respiratory: reports: no symptoms reported Cardiac (ROS): reports: no symptoms reported ABD/GI: reports: no symptoms reported : reports: no symptoms reported Musculoskeletal: reports: no symptoms reported Skin: reports: no symptoms reported <Ruiz Sepulvedaan - Last Filed: 12/22/17 19:41> Cardiology Progress Note - Objective Vital Signs Temp Pulse Pulse Pulse Resp BP BP 12/22/17 15:34 99.1 F 83 18 12/22/17 14:30 12/22/17 12:13 77 80 121/68 129/70 12/22/17 11:00 98.4 F 12/22/17 09:04 90 85 120/67 128/64 12/22/17 08:00 98.7 F 94 12 BP Pulse Ox Pulse Ox Pulse Ox 12/22/17 15:34 131/67 100 12/22/17 14:30 100 12/22/17 12:13 98 97 12/22/17 11:00 12/22/17 09:04 99 99 12/22/17 08:00 100 Weight 199 lb 1.239 oz 12/21/17 12/22/17 12/23/17 06:59 06:59 06:59 Intake Total 2089 1550 1580 Output Total 2759 2950 1850 Balance -555 -3603 -270 - Labs Result Diagrams: 12/22/17 05:22 12/22/17 05:22 Troponin/CKMB CK-MB (CK-2) 4.9 ng/mL (0-6.6) 12/18/17 21:32 Troponin I 0.016 ng/mL (< 0.028) 12/19/17 04:10 - Assessment/Plan Pt. seen and eval. by me. I agree with the A/P by the JOINT SUPERVISOR.He continues to do well. Chest clear. RRR.
[2017-12-22] MEDS: Atorvastatin Calcium 20 MG TAB PO SCH (20:23)
[2017-12-22] MEDS ORDERED: Simvastatin 40 MG TAB PO SCH (21:00)
[2017-12-23] MEDS: HYDROcodone/Acetaminophen 5/325 mg Tablet PO PRN ×3 (06:28→21:43)
[2017-12-23] MEDS: Bisacodyl 5 MG TAB PO PRN ×2 (08:27→22:49)
[2017-12-23] MEDS: Famotidine 20 MG TAB PO SCH ×2 (08:28→21:42)
[2017-12-23] MEDS: Aspirin 325 mg Enteric Coated Tablet PO SCH (08:28)
[2017-12-23] MEDS: Metoprolol Tartrate 25 MG TAB PO SCH ×2 (08:28→21:43)
[2017-12-23] MEDS: Potassium Chloride 10 MEQ TAB PO SCH (08:28)
[2017-12-23] MEDS: Furosemide 40 MG TAB PO SCH (08:28)
[2017-12-23] MEDS ORDERED: Lisinopril 5 MG TAB PO SCH (09:00)
--- NOTE | 2017-12-23 12:24 | PDOC.PN ---
- Subjective Encounter Start Date: 12/23/17 Encounter Start Time: 12:22 Mr. Manuel was seen today in follow-up of CAD. He is complaining of some pain in the right side of his chest and going to the center of his shoulder blades. He also notes a little dyspnea. - Objective Resuscitation Status: Resuscitation Status FULL:Full Resuscitation MAR Reviewed: Yes Vital Signs & Weight: Vital Signs (12 hours) Temp Pulse Pulse Pulse Resp BP BP 12/23/17 09:56 82 80 119/65 104/58 L 12/23/17 08:00 98.6 F 88 16 12/23/17 05:52 12/23/17 04:00 98.9 F 90 18 BP BP Pulse Ox Pulse Ox Pulse Ox 12/23/17 09:56 98 94 L 12/23/17 08:00 118/59 L 93 L 12/23/17 05:52 92 L 12/23/17 04:00 127/61 92 L Weight Weight 199 lb 3 oz Most Recent Monitor Data Heart Rate from ECG 89 NIBP 120/59 NIBP BP-Mean 71 Respiration from ECG 17 SpO2 100 I&O: 12/22/17 12/23/17 12/24/17 06:59 06:59 06:59 Intake Total 1550 2940 Output Total 2950 2775 Balance -1400 165 Result Diagrams: 12/22/17 05:22 12/22/17 05:22 Phys Exam - Physical Examination HEENT: PERRLA Respiratory: no wheezing, no rales, no rhonchi, clear to auscultation bilateral Cardiovascular: RRR, no significant murmur, no rub Gastrointestinal: soft, non-tender, no distention, positive bowel sounds Musculoskeletal: no edema Dx/Plan (1) CAD (coronary artery disease) Code(s): I25.10 - ATHSCL HEART DISEASE OF [place] CORONARY ARTERY W/O ANG PCTRS Status: Acute Qualifiers: Associated angina: with unstable angina Comment: s/p CABG x 3v, continue supportive mgmt, ASA, statin, B-kamille (2) HTN (hypertension) Code(s): I10 - ESSENTIAL (PRIMARY) HYPERTENSION Status: Chronic Qualifiers: Hypertension type: essential hypertension Qualified Code(s): I10 - Essential (primary) hypertension Comment: Hypotension currently, continue low-dose B-kamille (3) HLD (hyperlipidemia) Code(s): E78.5 - HYPERLIPIDEMIA, UNSPECIFIED Status: Chronic Comment: Continue statin therapy (4) Status post coronary artery bypass graft Code(s): Z95.1 - PRESENCE OF AORTOCORONARY BYPASS GRAFT Status: Acute Comment: CABG x 3v, continue routine post-CABG protocol - Plan * CAD - patient is s/p CABG. His blood pressure and heart rate are stable * HTN- blood pressure is stable * Hyperlipidemia- continue lipitor * Chest discomfort- will monitor, I suspect he may have some atelectasis- if it persists will repeat CXR in the AM.
[2017-12-23] MEDS ORDERED: Metolazone 5 MG TAB PO SCH (12:30)
[2017-12-23] MEDS: Atorvastatin Calcium 20 MG TAB PO SCH (21:42)
[2017-12-24] MEDS ORDERED: Metolazone 5 MG TAB PO SCH (06:00)
[2017-12-24] MEDS ORDERED: Aspirin 81 mg Enteric Coated Tablet PO SCH (09:00)
[2017-12-24] MEDS ORDERED: Clopidogrel Bisulfate 75 MG TAB PO SCH (09:00)
[2017-12-24] MEDS: Potassium Chloride 10 MEQ TAB PO SCH (10:26)
[2017-12-24] MEDS: Famotidine 20 MG TAB PO SCH (10:26)
[2017-12-24] MEDS: Metoprolol Tartrate 25 MG TAB PO SCH (10:27)
[2017-12-24] MEDS: Furosemide 40 MG TAB PO SCH (10:27)
--- NOTE | 2017-12-24 11:22 | DIS ---
DIAGNOSES: 1. Coronary artery disease. 2. Hyperlipidemia. PROCEDURES: 1. Cardiac catheterization. 2. Coronary bypass grafting x3 - 1) Left internal mammary artery to left anterior descending; 2) re verse saphenous vein to diagonal; 3) reverse saphenous vein to OM 3. DESCRIPTION OF HOSPITAL STAY: Mr. Manuel is a 52-year-old gentleman who came through the emergency dep artment with central chest pain. Troponins were indeterminate. EKG was normal. He underwent cardia c catheterization revealing severe left-sided disease. He underwent bypass on 12/19/2017 and has don e well postoperatively. He has had no rhythm disturbances. At the time of discharge he is ambulator y, tolerating regular diet, having good bowel and bladder function. Incisions are clean and dry, no evidence of infection. DISCHARGE MEDICATIONS: Aspirin 81 mg daily, Plavix 75 mg every day, Lopressor 12.5 mg b.i.d., lovast atin 10 mg at bedtime, and [place] 5/325 1-2 q.4. p.r.n. pain. Follow up is with me in [address] Bray in a month.
--- NOTE | 2017-12-24 11:36 | PDOC.PN ---
- Subjective Encounter Start Date: 12/24/17 Encounter Start Time: 11:35 Mr. Manuel was seen today in follow-up of CAD, and post CABG. He says the pain he experienced in his back is much improved. He denies chest pain or shortness of breath. - Objective Resuscitation Status: Resuscitation Status FULL:Full Resuscitation MAR Reviewed: Yes Vital Signs & Weight: Vital Signs (12 hours) Temp Pulse Resp BP Pulse Ox 12/24/17 08:55 98.1 F 89 18 110/63 98 12/24/17 03:48 99.2 F 94 17 118/67 94 L Weight Weight 199 lb 3 oz Most Recent Monitor Data Heart Rate from ECG 89 NIBP 120/59 NIBP BP-Mean 71 Respiration from ECG 17 SpO2 100 I&O: 12/23/17 12/24/17 12/25/17 06:59 06:59 06:59 Intake Total 2940 910 Output Total 2775 2175 Balance 165 -1265 Result Diagrams: 12/22/17 05:22 12/22/17 05:22 Phys Exam - Physical Examination HEENT: PERRLA Respiratory: no wheezing, no rales, no rhonchi, clear to auscultation bilateral Cardiovascular: RRR, no significant murmur, no rub no gallop Gastrointestinal: soft, non-tender, no distention, positive bowel sounds Musculoskeletal: no edema Dx/Plan (1) CAD (coronary artery disease) Code(s): I25.10 - ATHSCL HEART DISEASE OF [place] CORONARY ARTERY W/O ANG PCTRS Status: Acute Qualifiers: Associated angina: with unstable angina Comment: s/p CABG x 3v, continue supportive mgmt, ASA, statin, B-kamille (2) HTN (hypertension) Code(s): I10 - ESSENTIAL (PRIMARY) HYPERTENSION Status: Chronic Qualifiers: Hypertension type: essential hypertension Qualified Code(s): I10 - Essential (primary) hypertension Comment: Hypotension currently, continue low-dose B-k[place]ille (3) HLD (hyperlipidemia) Code(s): E78.5 - HYPERLIPIDEMIA, UNSPECIFIED Status: Chronic Comment: Continue statin therapy (4) Status post coronary artery bypass graft Code(s): Z95.1 - PRESENCE OF AORTOCORONARY BYPASS GRAFT Status: Acute Comment: CABG x 3v, continue routine post-CABG protocol - Plan * Patient is clinically stable * He has been cleared for discharge by [facility].
--- NOTE | 2017-12-24 11:55 | DIS ---
DATE OF ADMISSION: 12/19/2017 DATE OF DISCHARGE: 12/24/2017 PRIMARY CARE PHYSICIAN: Sherrie Mcgee PA-C DISCHARGE DISPOSITION: Home. PRIMARY DISCHARGE DIAGNOSES: 1. Coronary artery disease. 2. Hypertension. 3. Dyslipidemia. 4. Status post coronary artery bypass graft. DISCHARGE MEDICATIONS: Include Lopressor 12.5 mg twice daily, [place] 5/325 1-2 tablets q.4 hours as n eeded, Plavix 75 mg daily, magnesium 250 mg daily, lovastatin 10 mg at bedtime, glucosamine 1 tablet daily, fiber 1 tablet daily, aspirin 81 mg daily, Xanax 0.5 mg as needed. PROCEDURES DONE DURING ADMISSION: The patient had a cardiac catheterization in which there was a lef t dominant system, 70% ostial lesion and a 70% OM3. There was no significant disease in the RCA and it was dominant. LVEF was estimated at 60%. CODE STATUS: FULL CODE. ALLERGIES: No known drug allergies. HOSPITAL COURSE: Mr. Manuel is a 52-year-old gentleman who presented to the emergency room with chest pain. He was found to have unstable angina and underwent cardiac catheterization and was found to stewart ve multivessel disease. Vascular Surgery was consulted and the patient underwent bypass surgery on 0 12/20/2017. He had an uneventful postoperative course and was able to be discharged home in stable co ndition on 12/24/2017 and to have close outpatient followup.
[2017-12-24 13:30] VITALS: BP 110/63; TEMP 98.1
== END 2017-12-24 13:00 | disposition home or self-care (01) | DRG 234 ==
LOC: ERS 21:00 → 2SW 12-19 01:27 → OBSVTOIN 12-19 01:27 → CCU 12-19 13:35 → 2NO 12-22 14:15
PROVIDERS: ADMIT Internal Medicine; ATTEND Internal Medicine
PROC: 4A023N7 Measurement of Cardiac Sampling and Pressure, Left Heart, Percutaneous Approach (ICD-10-PCS; 2017-12-19)
PROC: B2111ZZ Fluoroscopy of Multiple Coronary Arteries using Low Osmolar Contrast (ICD-10-PCS; 2017-12-19)
PROC: B2151ZZ Fluoroscopy of Left Heart using Low Osmolar Contrast (ICD-10-PCS; 2017-12-19)
PROC: 02100Z9 Bypass Coronary Artery, One Artery from Left Internal Mammary, Open Approach (ICD-10-PCS; principal; 2017-12-20)
PROC: 021109W Bypass Coronary Artery, Two Arteries from Aorta with Autologous Venous Tissue, Open Approach (ICD-10-PCS; 2017-12-20)
PROC: 06BQ3ZZ Excision of Left Saphenous Vein, Percutaneous Approach (ICD-10-PCS; 2017-12-20)
PROC: 06BP3ZZ Excision of Right Saphenous Vein, Percutaneous Approach (ICD-10-PCS; 2017-12-20)
PROC: 5A1221Z Performance of Cardiac Output, Continuous (ICD-10-PCS; 2017-12-20)
DX: I21.4 Non-ST elevation (NSTEMI) myocardial infarction (principal); I25.110 Atherosclerotic heart disease of native coronary artery with unstable angina pectoris; I10 Essential (primary) hypertension; E78.5 Hyperlipidemia, unspecified; I95.9 Hypotension, unspecified; Z87.891 Personal history of nicotine dependence
CPT/HCPCS: 36415; 36416; 36430; 71045; 76942; 80048; 80053; 82550; 82553; 82805; 83036; 83690; 83880; 84484; 85007; 85025; 85027; 85347; 85610; 85730; 86850; 86900; 86901; 93005; 93010; 93458; 93798; 94002; 94150; 99152; 99153; A4216; C1769; J1265; J1644; J1815; J1885; J2001; J2150; J2250; J2270; J2370; J2405; J2440; J2704; J2720; J3010; J3370; J3475; J3480; J7050; P9045; S0017; S0028

== ENCOUNTER 2018-01-29 19:33 | Observation (INO) | payer SELFPAY ==
[2018-01-29 20:34] LABS: Troponin I Less than 0.010 ng/mL (< 0.028)
[2018-01-29] MEDS ORDERED: Acetaminophen 325 MG TAB PO PRN (23:10)
[2018-01-29] MEDS ORDERED: Sodium Chloride 0.9% 1,000 ML IV SCH (23:10)
[2018-01-29] MEDS ORDERED: Ondansetron PF 4 MG/2 ML Vial IVP PRN (23:10)
[2018-01-29] MEDS ORDERED: Ondansetron ODT 4 MG TAB SL PRN (23:10)
[2018-01-29 23:44] VITALS: BMI 27.3
[2018-01-29 23:45] LABS: Troponin I Less than 0.010 ng/mL (< 0.028)
[2018-01-30] MEDS ORDERED: Nitroglycerin 0.4 MG TAB (25 Tab Bottle) PO PRN (01:43)
[2018-01-30] MEDS ORDERED: Nitroglycerin 2% Ointment 1 INCH/1 GM Packet TOP SCH ×2 (02:45→03:00)
[2018-01-30 04:33] LABS: #Basophils 0.1 thou/uL (0.0-0.2); #Eosinphils 0.4 thou/uL (0.0-0.7); #Lymphocytes 2.8 thou/uL (1.20-3.40); #Monocytes 0.8 thou/uL (0.11-0.59); #Neutrophils 4.7 thou/uL (1.40-6.50); %Basophils 0.8 % (0.0-1.0); %Eosinophils 4.7 % (0.0-10.0); %Lymphocytes 32.2 % (21.0-51.0); %Monocytes 8.7 % (0.0-10.0); %Neutrophils 53.7 % (42.0-75.0); Hemoglobin 11.6 g/dL (14.0-18.0); Mean Corpuscular HGB CONC 32.4 g/dL (32.0-36.0); Mean Corpuscular Hemoglobin 29.2 pg (27.0-31.0); Mean Corpuscular Volume 90.2 fL (78.0-98.0); Mean Platelet Volume 6.6 fL (7.4-10.4); Platelet Count 253 thou/uL (130-400); RBC Distribution Width 13.9 % (11.5-14.5); Red Blood Cell (RBC) Count 3.99 mill/uL (4.70-6.10); White Blood Cell (WBC) Count 8.8 thou/uL (4.8-10.8)
[2018-01-30 04:49] LABS: Anion Gap 12 mmol/L (10-20); BUN (Urea Nitrogen) 16 mg/dL (8.4-25.7); Calc. Creatinine Clearance 123 mL/min (70-130); Calcium 9.1 mg/dL (7.8-10.44); Carbon Dioxide 22 mmol/L (22-29); Cardiac Risk 6.3 (Less than 4.5); Chloride 108 mmol/L (98-107); Cholesterol 165 mg/dl (< 200 Desired); Estimated GFR-MDRD Greater than 90; Glucose 79 mg/dL (70-105); HDL Cholesterol 26 mg/dL (>60 Neg Risk); LDL Cholesterol, Calculated 87 mg/dL; Potassium 4.2 mmol/L (3.5-5.1); Sodium 138 mmol/L (136-145); Triglycerides 259 mg/dL (Less than 150)
--- NOTE | 2018-01-30 06:40 | HP ---
CHIEF COMPLAINT: Chest pain. HISTORY OF PRESENT ILLNESS: This is a 53-year-old white male with past medical history of hypertension, CABG x3, presenting with chest pain which has been ongoing for the past week. The patient is status post CABG in December. He has been having chest discomfort, but attributed his chest discomfort to the incision site of his CABG. Patient stated that, however, recently in the past couple of days, his chest pain has been getting more severe and this morning, the patient stated that he was driving, he had some chest discomfort. It was it intermittent; however, it was not severe until he came home to make food for himself. Patient states that when he was making food for himself, he felt severe chest pain which was 10/10. It was like (lightning bolts) that struck his chest and the patient states that this chest pain was so severe that it took his breath away. The patient then told his significant other to bring him to the emergency department because the pain was unbearable and that pain was very similar to the pain that he had when he had his chest pain which led to him having a bypass. Patient admits to having chest pain, shortness of breath, nausea; however, denies any vomiting. Of note, the patient was recently seen by me in the hospital on 12/19/2017, patient came with chief complaint of chest pain. At that time, troponins were indeterminate. However, due to patient's severe typical chest pain, cardiac catheterization was done by Cardiology. The patient was found to have a left- sided disease; therefore, the patient underwent open heart surgery and patient received CABG x3, left internal mammary artery to left anterior descending, reverse saphenous vein to diagonal, and reverse saphenous to OM3. REVIEW OF SYSTEMS: Positive for chest pain which radiates to the mid clavicular line underneath the left breast nipple. Positive for shortness of breath, otherwise as documented in the HPI, all other systems were reviewed and are negative. FAMILY HISTORY: The patient states that mom at 59, had heart issues. Mom had liver transplant, which killed mom. PAST MEDICAL HISTORY: Coronary artery disease, status post CABG x3; hypertension. PAST SURGICAL HISTORY: Appendectomy, status post back surgery in 2006, right shoulder surgery x3, coronary artery bypass and graft x4 vessels. PSYCHIATRIC HISTORY: No psych history. SOCIAL HISTORY: Patient is a smoker, quit 10 years ago. The patient denies any illicit drug use and patient denies any alcohol use. ALLERGIES: No known drug allergies. CURRENT MEDICATIONS: Patient takes aspirin, Plavix, potassium chloride, Lasix. PHYSICAL EXAMINATION: VITAL SIGNS: Patient's blood pressure is 128/70, pulse is 63, respiratory rate of 16, temperature of 97.7, O2 saturation of 97 on room air. GENERAL: Patient is lying comfortably in bed, does not appear to be in any acute distress. The patient is alert, oriented x3. HEENT: Normocephalic, atraumatic. Pupils are equal, round, and reactive to light. Extraocular movements are intact. No scleral icterus. No conjunctival pallor. Mucous membranes are moist. NECK: No JVD, no tracheal deviation. No meningeal signs. Full range of motion. RESPIRATORY: Clear to auscultation bilateral. No wheezing, no rales, no rhonchus appreciated. CARDIOVASCULAR: Positive S1, S2. Regular rate and rhythm. No murmurs, no gallops, no rubs appreciated. The patient has mid sternal scar. ABDOMEN: Soft, nontender, nondistended, positive bowel sounds in all quadrants. No palpable masses. No peritoneal signs, no rigidity, no guarding. EXTREMITIES: The patient has 5/5 upper extremity strength. No edema. Good radial pulses bilaterally. Lower extremity: 5/5 lower extremity strength. No edema. Good pulses bilaterally. NEUROLOGIC: Cranial nerves II through XII grossly intact. No neurologic deficits noted. SKIN: Warm, dry, and intact. PSYCHIATRIC: The patient has normal affect. Alert and oriented x3. EKG: Sinus bradycardia with a rate of 57. LABORATORY DATA: WBC is 8.8, hemoglobin is 7.6, hematocrit is 36.0, platelet count is 253,000. Sodium is 138, potassium is 4.2, chloride is 108, carbon dioxide 22, anion gap is 12, BUN 16, creatinine is 0.86. Triglycerides 259, cholesterol is 165, LDL of 87, heart disease risk ratio is 6.3. IMAGING: CTA of the chest showed no acute thoracic findings or evidence of PE. Chest x-ray showed no acute thoracic findings. ASSESSMENT AND PLAN: This is a 53-year-old male recently diagnosed with coronary artery disease, status post coronary artery bypass grafting x3, has been admitted for: 1. Chest pain, rule out acute coronary syndrome due to patient's significant cardiac history. At this point, we are going to get an echo, we are going to follow up on troponins. At this point, troponins x2 has been negative. We will consult Cardiology and we will follow up on patient's labs. We will start patient on his home medications of aspirin, Plavix, metoprolol. We will continue to monitor the patient. 2. Coronary artery disease, status post coronary artery bypass graft. We will continue the patient on his home medications. 3. Hypertension. We will continue patient on home medications. 4. Deep venous thrombosis and gastrointestinal prophylaxis. SAMEERD
[2018-01-30] MEDS ORDERED: Aspirin 81 mg Enteric Coated Tablet PO SCH (09:00)
[2018-01-30] MEDS ORDERED: Aspirin 325 MG TAB PO SCH (09:00)
[2018-01-30] MEDS ORDERED: Potassium Chloride 10 MEQ TAB PO SCH (09:00)
[2018-01-30] MEDS ORDERED: Metoprolol Tartrate 25 MG TAB PO SCH (09:00)
[2018-01-30] MEDS ORDERED: Clopidogrel Bisulfate 75 MG TAB PO SCH (09:00)
[2018-01-30] MEDS ORDERED: Famotidine 20 MG TAB PO SCH (09:00)
[2018-01-30] MEDS ORDERED: Glucosam/Chondr-Msm1/D3/C/Mang [Glucosamine Chondroitin Comple PO SCH (09:00)
[2018-01-30] MEDS ORDERED: Enoxaparin Sodium 40 MG/0.4 ML SYRINGE SC SCH (09:00)
[2018-01-30] MEDS ORDERED: Aspirin 325 mg Enteric Coated Tablet PO SCH (09:00)
[2018-01-30] MEDS ORDERED: Furosemide 20 MG TAB PO SCH (09:00)
[2018-01-30] MEDS: Nitroglycerin 2% Ointment 1 INCH/1 GM Packet TOP SCH ×2 (10:06→18:21)
[2018-01-30 11:16] VITALS: BP 142/77; TEMP 97.6
[2018-01-30] MEDS ORDERED: Ketorolac Tromethamine 30 MG/ML VIAL ONE (12:11)
[2018-01-30] MEDS ORDERED: Ketorolac Tromethamine 30 MG/ML VIAL IVP SCH (12:15)
--- NOTE | 2018-01-30 13:46 | CON ---
DATE OF CONSULTATION: 01/30/2018. REASON FOR CONSULTATION: Chest pain. HISTORY OF PRESENT ILLNESS: Mr. John Paul Manuel is a 53-year-old gentleman with history of coronary artery disease, recent bypass surgery, and chest pain. Mr. Manuel initially presented with severe substernal chest pain in December 19 of this year. The disc omfort was intense and went all the way across his chest, waxing and waning. Nitroglycerin seemed to help the pain. He also thought to some degree was worse when he took a deep breath and to some degr ee better when he sat up, but still the pain was waxing and waning and he will become intermittently diaphoretic. The patient reported that he had a catheterization 8 or 9 years ago which showed no obs tructive stenosis. The patient underwent cardiac catheterization and was found to have disease in th e left anterior descending artery. There was no obstructive stenosis in the left main. The proximal LAD appeared to be approximately 70% lesion with normal flow. The lesion in the mid LAD was about a 70% lesion in obtuse marginal branch. In view of the ongoing severe substernal chest pain, he was t aken to cardiac catheterization lab the following day and underwent coronary bypass grafting internal mammary to the LAD with 1 mm distal LAD, saphenous vein graft to diagonal, saphenous vein graft to t he third obtuse marginal. He is not considered a candidate for redo bypass due to the size of the coronary arteries and conduit availability. The patient states he has been doing well up until recently. He has had for about the last 2 weeks c hest pain mostly in the center of his chest when he try to lift or carry things. For the last day, rashida werner has had continuous chest pain in the middle of his chest, sometimes in the left lower anterior ches t. She came to the hospital where he was brought in for observation. He continues to have chest pain no w. Nitroglycerin did not seem to help on this occasion. The patient continues to have chest pain now. He said the only thing that seemed to help is morphine . The patient has not yet received any anti-inflammatories that has been ordered by me. MEDICATIONS AT HOME: Included lovastatin, aspirin, clopidogrel, metoprolol, furosemide, and potassiu m. PHYSICAL EXAMINATION: GENERAL: This is a pleasant 53-year-old gentleman, still having a lot of pain. It does hurt worse w hen he takes a breath. VITAL SIGNS: Blood pressure 142/77 and pulse 68 and regular. LUNGS: Clear. CARDIAC: Normal S1, normal S2. ABDOMEN: Soft, nontender. EXTREMITIES: There is no clubbing or cyanosis. He has no edema. SKIN: Warm and dry. He is not diaphoretic. PERTINENT LABORATORY AND X-RAY FINDINGS: The troponin levels are less than 0.010. All the EKGs are normal. Reviewing previous laboratory, he did have a slight increase in troponin level in December prior to his bypass surgery at 0.044. ASSESSMENT: 1. Coronary artery disease. 2. Chest pain of uncertain etiology, atypical for angina. PLAN: 1. Took off the nitro paste. 2. Schedule for stress testing. We will make sure to give him a single dose of Toradol. We will ch connor back later this afternoon to see how he is doing.
[2018-01-30] MEDS ORDERED: ADENOSINE 60 MG/20 ML VIAL ONE (16:14)
--- NOTE | 2018-01-30 17:56 | PDOC.EVN ---
Event Note - Event Note Event Note: care plan and DC discussed with rafia Quintana.
--- NOTE | 2018-01-30 19:06 | NM ---
RADIONUCLIDE STRESS REST MYOCARDIAL PERFUSION SCAN WITH CT ATTENUATION CORRECTION AND SPECT IMAGING LEFT VENTRICULAR WALL MOTION EVALUATION AND EJECTION FRACTION 01/30/18 HISTORY: Chest pain. FINDINGS: Heterogeneous uptake of radiotracer throughout the left ventricular myocardium. No focal perfusion de fect or reversibility. QGS analysis of gated SPECT images shows hypokinesis of the septum. The ejecti on fraction at 56%. IMPRESSION: Normal myocardial perfusion scan. Normal LVEF. POS: ARNIE
[2018-01-30] MEDS ORDERED: Lovastatin 20 MG TAB PO SCH (21:00)
--- NOTE | 2018-01-31 10:52 | DIS ---
DATE OF ADMISSION: 01/29/2018 DATE OF DISCHARGE: 01/30/2018 DISCHARGE DIAGNOSES: 1. Coronary artery disease, stable. 2. Status post coronary artery bypass graft, stable. 3. Hypertension, stable. CONSULTATION: Cardiology Services, Dr. Bray. PERTINENT LABORATORY AND DIAGNOSTIC FINDINGS: WBC 8.8, RBC 3.99, hemoglobin 11.6. Troponin less yousuf n 0.010. Triglycerides 259 and the rest of lipid panel unremarkable. Echocardiogram displayed left ventricular ejection fraction of 55%-60%. Stress test revealed a normal perfusion study with no wall motion abnormalities. HOSPITAL COURSE: The patient was admitted to telemetry with complaints of chest pain for the last we ek, he had recent CABG x3, last month on 12/19/2017. He had stated that postop, he was doing very we ll up to recently where he would experience some chest pain and chest tightness when lifting or carry ing certain items. On admission, vital signs were stable. He denied any shortness of breath, abdomi nal pain, or any other symptoms other than chest pain. His chest pain did improve; however, with the use of morphine and nitroglycerin. With patient's history of CAD and recent coronary artery bypass graft, Cardiology Services, Dr. Bray were consulted for further evaluation. He was then taken off nitro paste and scheduled for stress testing, he was given one dose of Toradol which seemed to improv e his symptoms. He had tolerated stress testing well without any complications. Dr. Bray did katharina mmend him continue on anti-inflammatory. Upon discharge, he was then prescribed Naprosyn 500 mg twic e daily for 5 days. It was found that his chest pain was likely secondary to his underlying CAD; how ever, he is not a candidate for redo bypass due to size of coronary arteries and availability. Dr. Mulugeta uriarte did explain to the patient to call his office for a scheduled appointment. He was seen and exa mined prior to discharge. He denied any complaints of chest pain, shortness of breath or abdominal p ain. Further discharge care plan was explained to him thoroughly and all questions were answered, he had verbalized his understanding that he would have to call Dr. Bray's office next week to schedul e an appointment. He was found to be medically stable for discharge on 01/30/2018. FOLLOWUP: The patient is to follow up with his primary care provider, Sherrie Mcgee PA-C, he i s also instructed to call Dr. Rogers's office next week to schedule a followup appointment. CONDITION ON DISCHARGE: Stable. ACTIVITY: As tolerated. DIET: Healthy heart diet. CODE STATUS: FULL CODE. DISPOSITION: Home on 01/30/2018.
--- NOTE | 2018-02-01 08:29 | EKG ---
Test Reason : C/P Blood Pressure : / mmHG Vent. Rate : 057 BPM Atrial Rate : 057 BPM P-R Int : 162 ms QRS Dur : 090 ms QT Int : 438 ms P-R-T Axes : 059 042 086 degrees QTc Int : 426 ms Sinus bradycardia Otherwise normal ECG When compared with ECG of 29-JAN-2018 20:16, (Unconfirmed) No significant change was found Confirmed by EMMA NAYAK ([id number]) on 02/01/2018 8:28:32 AM Referred By: ALVARO Confirmed By:EMMA NAYAK
--- NOTE | 2018-02-03 08:33 | STRESS ---
Acquisition Time: 2018-01-30 15:18:22 Total Exercise Time: 00:04:00 Test Indications: CHEST PAIN Medications: Protocol: ADENOSINE Max HR: 105 BPM 62% of Pred: 168 BPM Max BP: 136/062 mmHG Max Work Load: 1.0 METS RESTING ECG: SINUS BRADYCARDIA AT [address]PM WITH NON-SPECIFIC ST SEGMENT AND T-WAVE ABNORMALITIES SYMPTOMS: CHEST PAIN, NAUSEA, SHORTNESS OF BREATH NORMAL BLOOD PRESSURE RESPONSE ECTOPY: NONE ECG RESPONSE: NO SIGNIFICANT CHANGES INTEPRETATION: INDETERMINATE ECG DUE TO BASELINE ABNORMAL EKG/AWAIT NUCLEAR IMAGES FOR DEFINTIVE DAIGNOSIS Confirmed by DIANA JALLOH ([id number]) on 02/03/2018 8:32:23 AM Referred By: MD Brenden GE Confirmed By:DIANA JALLOH
--- NOTE | 2018-02-08 12:03 | EKG ---
Test Reason : CHEST PAIN Blood Pressure : / mmHG Vent. Rate : 057 BPM Atrial Rate : 057 BPM P-R Int : 134 ms QRS Dur : 076 ms QT Int : 444 ms P-R-T Axes : 037 031 076 degrees QTc Int : 432 ms Sinus bradycardia Nonspecific ST and T wave abnormality Abnormal ECG Confirmed by BREANNE KANG, ARIS ([id number]), film or videotape editor KAYLI ADAMS ([id number]) on 02/08/2018 12:03:23 PM Referred By: [place] Confirmed By:ARIS RAYMUNDO MD
== END 2018-01-30 19:06 | disposition home or self-care (01) ==
LOC: ERS 19:33 → 2SW 22:59
PROVIDERS: ADMIT Internal Medicine; ATTEND Internal Medicine
DX: R07.89 Other chest pain (principal); I25.10 Atherosclerotic heart disease of native coronary artery without angina pectoris; I10 Essential (primary) hypertension; Z87.891 Personal history of nicotine dependence; Z79.82 Long term (current) use of aspirin; Z79.02 Long term (current) use of antithrombotics/antiplatelets; Z79.899 Other long term (current) drug therapy; Z95.1 Presence of aortocoronary bypass graft
CPT/HCPCS: 36415; 78452; 80048; 80061; 85025; 90471; 90686; 90732; 93005; 93010; 93017; 93306; 94760; 96372; 96374; 96375; 96376; A9500; G0008; G0009; G0378; J0153; J1650; J1885; J2270

== ENCOUNTER 2018-07-09 22:23 | Observation (INO) | payer BC ==
--- NOTE | 2018-07-09 23:00 | RAD ---
CHEST ONE VIEW: 07/09/18 HISTORY: Chest pain. COMPARISON: 01/29/18. FINDINGS: The cardiac silhouette is magnified by projection. Pulmonary vasculature is unremarkable. Mediastinum is midline with postoperative changes. No lobar consolidation or evidence of pneumothorax. IMPRESSION: No active cardiopulmonary abnormalities are demonstrated. POS: [facility]
[2018-07-09 23:19] LABS: #Basophils 0.1 thou/uL (0.0-0.2); #Eosinphils 0.2 thou/uL (0.0-0.7); #Lymphocytes 2.1 thou/uL (1.20-3.40); #Monocytes 0.6 thou/uL (0.11-0.59); #Neutrophils 5.3 thou/uL (1.40-6.50); %Basophils 0.6 % (0.0-1.0); %Eosinophils 2.6 % (0.0-10.0); %Lymphocytes 24.9 % (21.0-51.0); %Monocytes 7.7 % (0.0-10.0); %Neutrophils 64.2 % (42.0-75.0); Hemoglobin 13.8 g/dL (14.0-18.0); Mean Corpuscular HGB CONC 33.4 g/dL (32.0-36.0); Mean Corpuscular Hemoglobin 30.1 pg (27.0-31.0); Mean Corpuscular Volume 90.2 fL (78.0-98.0); Mean Platelet Volume 6.4 fL (7.4-10.4); Platelet Count 211 thou/uL (130-400); RBC Distribution Width 12.6 % (11.5-14.5); White Blood Cell (WBC) Count 8.2 thou/uL (4.8-10.8)
[2018-07-09 23:39] LABS: ALT (SGPT) 22 U/L (8-55); AST (SGOT) 22 U/L (5-34); Alkaline Phosphatase 75 U/L (40-150); Anion Gap 13 mmol/L (10-20); BUN (Urea Nitrogen) 20 mg/dL (8.4-25.7); Bilirubin, Total 0.3 mg/dL (0.2-1.2); Calc. Creatinine Clearance 0 mL/min (70-130); Calcium 9.3 mg/dL (7.8-10.44); Carbon Dioxide 21 mmol/L (22-29); Chloride 104 mmol/L (98-107); Estimated GFR-MDRD 75; Globulin 2.8 g/dL (2.4-3.5); Glucose 124 mg/dL (70-105); Potassium 4.1 mmol/L (3.5-5.1); Protein, Total 6.8 g/dL (6.0-8.3); Sodium 134 mmol/L (136-145)
[2018-07-09] MEDS ORDERED: Ketorolac Tromethamine 30 MG/ML VIAL ONE (23:55)
[2018-07-10] MEDS ORDERED: diphenhydrAMINE 50 MG/ML VIAL ONE (00:24)
[2018-07-10 02:09] LABS: Troponin I Less than 0.010 ng/mL (< 0.028)
[2018-07-10] MEDS ORDERED: Nitroglycerin 2% Ointment 1 INCH/1 GM Packet ONE ×3 (02:56→02:58)
[2018-07-10 05:28] LABS: Troponin I Less than 0.010 ng/mL (< 0.028)
[2018-07-10 05:31] VITALS: BMI 28.3
[2018-07-10] MEDS ORDERED: Ondansetron PF 4 MG/2 ML Vial IVP PRN (05:44)
[2018-07-10] MEDS ORDERED: Ondansetron ODT 4 MG TAB SL PRN (05:44)
[2018-07-10] MEDS: Sodium Chloride 0.9% 1,000 ML IV SCH ×2 (05:56→16:37)
[2018-07-10] MEDS ORDERED: Aspirin 325 MG TAB PO SCH (06:00)
[2018-07-10] MEDS ORDERED: NAPROXEN 500 MG PO PRN (08:02)
[2018-07-10] MEDS ORDERED: Ketorolac Tromethamine 30 MG/ML VIAL IVP PRN (08:06)
[2018-07-10] MEDS ORDERED: Metoprolol Tartrate 25 MG TAB PO SCH (09:00)
[2018-07-10] MEDS ORDERED: Clopidogrel Bisulfate 75 MG TAB PO SCH (09:00)
[2018-07-10] MEDS ORDERED: Aspirin 81 mg Enteric Coated Tablet PO SCH (09:00)
[2018-07-10 09:13] LABS: Troponin I Less than 0.010 ng/mL (< 0.028)
[2018-07-10] MEDS: HYDROcodone/Acetaminophen 7.5/325 mg Tablet PO PRN ×2 (11:27→16:04)
[2018-07-10 13:01] VITALS: TEMP 97.2
[2018-07-10 16:09] VITALS: BP 135/70
[2018-07-10] MEDS ORDERED: Simvastatin 5 MG TAB PO SCH (21:00)
[2018-07-10] MEDS ORDERED: Non-Formulary Item 1 EACH (Lovastatin [Lovastatin] 10 MG) PO SCH (21:00)
--- NOTE | 2018-07-11 09:23 | SS ---
DATE OF ADMISSION: 07/10/2018 DATE OF DISCHARGE: 07/10/2018 CHIEF COMPLAINT: Chest pain. FINAL DIAGNOSES: 1. Pleuritic and musculoskeletal chest pain, noncardiac, acute coronary syndrome ruled out (troponin negative x3, normal EKG, echo showed normal left ventricular systolic function and no evidence of effusion). 2. Coronary artery disease, status post coronary artery bypass graft on 01/02/2018, normal MPI in January 2018. 3. Hypertension. HOSPITAL COURSE: Mr. Manuel is a pleasant 53-year-old male with a past medical history for coronary artery disease, status post three-vessel CABG this past December; hypertension; and history of prior tobacco abuse; who presented to the ER with complaints of chest pain. The patient states that he works at 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 While at work, the patient began experiencing some sharp pain that did radiate to the back and says that it "took his breath away." The pain was exacerbated by movement and by deep breathing. He came to the ER for further workup and treatment. He was given nitroglycerin, which did not relieve his pain. His EKG showed normal sinus rhythm. No ischemic ST or T-wave changes. His serial troponin has been negative x3. He has been given IV Toradol along with hydrocodone, and his chest pain is much improved. It is somewhat reproducible and that he can bring it on with movement of his arms. He is ambulated with walking program. He denies any nausea or vomiting. He is eating without issue. He denies any exertional chest pressure or shortness of breath. He did have an echocardiogram performed today, which showed normal left ventricular systolic function with estimated EF of 55% to 60%, and no evidence of pericardial effusion. REVIEW OF SYSTEMS: All other review of systems was performed and found to be negative unless that stated above. PAST MEDICAL HISTORY: As mentioned, significant for CAD, status post CABG; hypertension; history of tobacco abuse. PAST SURGICAL HISTORY: Appendectomy, status post back surgery in 2006, right shoulder surgery x3, three-vessel CABG in December 2017. SOCIAL HISTORY: The patient is a smoker, he quit 10 years ago. The patient denies any illicit drug use or any alcohol use. ALLERGIES: NO KNOWN DRUG ALLERGIES. CURRENT HOME MEDICATIONS: 1. Aspirin 81 mg daily. 2. Furosemide 20 mg daily. 3. Lovastatin 10 mg p.o. at bedtime. 4. Potassium chloride 10 mEq tab one tablet p.o. daily. 5. Plavix 75 mg one tablet p.o. daily. 6. Metoprolol tartrate 12.5 mg p.o. b.i.d. PHYSICAL EXAMINATION: VITAL SIGNS: Blood pressure 135/70, O2 saturation 94% on room air, pulse is 71. GENERAL: This is a well-appearing male, who appears his stated age, in no acute distress. HEENT: Head atraumatic, normocephalic. Mucous membranes are moist. Extraocular eye movements intact. NECK: No JVD. No carotid bruits. Trachea is midline. CV: S1 and S2. Regular rate and rhythm. No appreciable murmurs, rubs, or gallops. LUNGS: Regular respiratory rate and pattern. Clear to auscultation bilaterally. ABDOMEN: Positive bowel sounds. Nontender. EXTREMITIES: No edema. +2 DP pulses bilaterally. SKIN: Warm and dry. No rashes. LABORATORY DATA: White blood cell count 8.2, hemoglobin 13.8, hematocrit 41.5, and platelets 211. Sodium 134, potassium 4.1, anion gap 13, BUN 20, creatinine 1.04. Liver function tests within normal limits. Troponin completely negative x4. Albumin 4.0. FOLLOWUP: The patient is to see his primary care physician on Saturday. PLAN: I have advised him to continue ibuprofen for inflammation and pleuritic and musculoskeletal chest pain. We also discussed the fact that because of his repetitive manual labor, that he probably has an aspect of arthritis contributing to some of his symptoms, which he will discuss with his primary care physician. He will continue his other home medications. I have also encouraged him to have routine followup visits with Cardiology given his cardiac history. CONDITION ON DISCHARGE: Stable. ACTIVITY: As tolerated. DIET: Heart healthy, low-sodium. DISPOSITION: Home. The care has been discussed with Dr. Damon, who agrees with the above. Job ID: [id number]
--- NOTE | 2018-07-12 21:52 | EKG ---
Test Reason : Blood Pressure : / mmHG Vent. Rate : 073 BPM Atrial Rate : 073 BPM P-R Int : 122 ms QRS Dur : 082 ms QT Int : 378 ms P-R-T Axes : 041 057 079 degrees QTc Int : 416 ms Normal sinus rhythm Normal ECG Confirmed by ARIS RAYMUNDO MD ([id number]), index editor ALEKS AGUILAR ([id number]) on 07/12/2018 9:51:36 PM Referred By: Confirmed By:ARIS RAYMUNDO MD
== END 2018-07-10 18:21 | disposition home or self-care (01) ==
LOC: ERS 22:23 → 2NO 07-10 02:35
PROVIDERS: ADMIT Hospitalist; ATTEND Hospitalist
DX: R07.89 Other chest pain (principal); I25.10 Atherosclerotic heart disease of native coronary artery without angina pectoris; I10 Essential (primary) hypertension; Z87.891 Personal history of nicotine dependence; Z79.02 Long term (current) use of antithrombotics/antiplatelets; Z79.82 Long term (current) use of aspirin; Z79.899 Other long term (current) drug therapy; Z95.1 Presence of aortocoronary bypass graft
CPT/HCPCS: 36415; 71045; 80053; 84484; 85025; 93005; 93306; 96374; 96375; 96376; G0378; J1200; J1885

== ENCOUNTER 2018-10-23 09:25 | Outpatient (CLI) | payer BC ==
--- NOTE | 2018-10-23 12:16 | RAD ---
TWO VIEW CHEST: HISTORY: Myocardial infarction. FINDINGS: Lungs are clear. Heart and mediastinum unremarkable. Postop sternotomy changes are noted. Vasculat ure normal. Osseous structures unremarkable. IMPRESSION: Unremarkable chest. POS: [facility]
== END 2018-10-23 09:26 | disposition home or self-care (01) ==
LOC: RAD 09:25
PROVIDERS: ATTEND Thoracic Surgery (Cardiothoracic Vascular Surgery)
DX: I21.19 ST elevation (STEMI) myocardial infarction involving other coronary artery of inferior wall (principal)
CPT/HCPCS: 71046

== ENCOUNTER 2019-06-04 01:25 | Inpatient (IN) | payer BC ==
[2019-06-04 02:15] LABS: #Basophils 0.1 thou/uL (0.0-0.2); #Eosinphils 0.2 thou/uL (0.0-0.7); #Lymphocytes 3.2 thou/uL (1.20-3.40); #Monocytes 0.8 thou/uL (0.11-0.59); #Neutrophils 6.9 thou/uL (1.40-6.50); %Basophils 0.7 % (0.0-1.0); %Eosinophils 1.4 % (0.0-10.0); %Lymphocytes 28.9 % (21.0-51.0); %Monocytes 6.9 % (0.0-10.0); %Neutrophils 62.1 % (42.0-75.0); Hemoglobin 14.4 g/dL (14.0-18.0); Mean Corpuscular HGB CONC 33.7 g/dL (32.0-36.0); Mean Corpuscular Hemoglobin 31.4 pg (27.0-31.0); Mean Corpuscular Volume 93.1 fL (78.0-98.0); Mean Platelet Volume 6.6 fL (7.4-10.4); Platelet Count 274 thou/uL (130-400); RBC Distribution Width 12.4 % (11.5-14.5); Red Blood Cell (RBC) Count 4.58 mill/uL (4.70-6.10); White Blood Cell (WBC) Count 11.1 thou/uL (4.8-10.8)
[2019-06-04 02:34] LABS: ALT (SGPT) 47 U/L (8-55); AST (SGOT) 22 U/L (5-34); Albumin 4.2 g/dL (3.5-5.0); Alkaline Phosphatase 58 U/L (40-110); Anion Gap 12 mmol/L (10-20); BUN (Urea Nitrogen) 21 mg/dL (8.4-25.7); Bilirubin, Total 0.4 mg/dL (0.2-1.2); CK (CPK) 165 U/L (30-200); Calc. Creatinine Clearance 0 mL/min (70-130); Calcium 9.3 mg/dL (7.8-10.44); Carbon Dioxide 25 mmol/L (22-29); Chloride 105 mmol/L (98-107); Estimated GFR-MDRD 82; Globulin 2.7 g/dL (2.4-3.5); Glucose 86 mg/dL (70-105); Potassium 4.4 mmol/L (3.5-5.1); Protein, Total 6.9 g/dL (6.0-8.3); Sodium 138 mmol/L (136-145)
[2019-06-04] MEDS ORDERED: Nitroglycerin 0.4 MG TAB (25 Tab Bottle) SL PRN (03:07)
--- NOTE | 2019-06-04 03:09 | PDOC.HHP ---
Hospitalist HPI - History of Present Illness Chest pain History of Present Illness: 54 yo male with history of CAD s/p CABG in 12/2017 presents to ER due to sudden onset of chest pain. Patient works at [employer] and after he got off work last night, he started experiencing left chest pain below his armpit of 9/10 intensity radiating to his left shoulder and to his left nipple. No aggravating factors. He presented to the ER. There was relief with NTG SL. In the ER, he was found to have elevated troponins and has been diagnosed with NSTEMI and recieved full dose lovenox. He states that he has palpitations, shortness of breath and dry cough. He reports orthopnea and PND for 2 weeks and has been sleeping reclining against the wall as his bed doesn't have a bed board. Denies fever or chills. Reports feeling lightheaded. Reports nausea but no vomiting, diarrhea or constipation. No abdominal pain, burning or pain with urination. No swelling in his legs or rash or bruising. He reports some headache. No weakness in arms or legs. He reports snoring. He states that his has also mentioned that he has witnessed apneas. He has never been tested for sleep apnea. Hospitalist ROS - Review of Systems All other systems reviewed; all pertinent +/- noted in HPI/Subj Hospitalist History - Past Medical History Cardiac: reports: CAD, HTN, [place], Hyperlipidemia - Past Surgical History Past Surgical History: reports: CABG - Family History Family History: reports: no pertinent history (reviewed) - Social History Smoking Status: Former smoker (quit 10 yr ago) Tobacco Type: cigarettes Alcohol: reports: None Drugs: reports: none Living Situation: With Family Activity level: independent ambulation - Exam General Appearance: awake alert, ill appearing Eye: PERRL, anicteric sclera ENT: normocephalic atraumatic, no oropharyngeal lesions, moist mucosa Neck: supple, symmetric, no JVD, no thyromegaly, no lymphadenopathy Heart: RRR, no murmur, no gallops, no rubs, normal peripheral pulses Heart - other findings: tenderness to palpation of chest on left side Respiratory: CTAB, no wheezes, no rales, no ronchi, normal chest expansion, no tachypnea, normal percussion Respiratory - other findings: reduced air entry bilaterally Gastrointestinal: soft, non-tender, non-distended, normal bowel sounds, no palpable masses Extremities: no cyanosis, no clubbing, no edema Skin: normal turgor, no lesions, no rashes Neurological: cranial nerve grossly intact, normal sensation to touch, no weakness, no focal deficits Musculoskeletal: normal tone, normal strength, no muscle wasting Psychiatric: normal affect, normal behavior, A&O x 3 Hospitalist Results - Labs Result Diagrams: 06/04/19 02:01 06/04/19 02:01 Lab results: WBC 11.1 thou/uL (4.8-10.8) H 06/04/19 02:01 Hgb 14.4 g/dL (14.0-18.0) 06/04/19 02:01 Hct 42.6 % (42.0-52.0) 06/04/19 02:01 MCV 93.1 fL (78.0-98.0) 06/04/19 02:01 Plt Count 274 thou/uL (130-400) 06/04/19 02:01 Neutrophils % 62.1 % (42.0-75.0) 06/04/19 02:01 Sodium 138 mmol/L (136-145) 06/04/19 02:01 Potassium 4.4 mmol/L (3.5-5.1) 06/04/19 02:01 Chloride 105 mmol/L (98-107) 06/04/19 02:01 Carbon Dioxide 25 mmol/L (22-29) 06/04/19 02:01 BUN 21 mg/dL (8.4-25.7) 06/04/19 02:01 Creatinine 0.96 mg/dL (0.7-1.3) 06/04/19 02:01 Glucose 86 mg/dL (70-105) 06/04/19 02:01 Calcium 9.3 mg/dL (7.8-10.44) 06/04/19 02:01 Total Bilirubin 0.4 mg/dL (0.2-1.2) 06/04/19 02:01 AST 22 U/L (5-34) 06/04/19 02:01 ALT 47 U/L (8-55) 06/04/19 02:01 Alkaline Phosphatase 58 U/L (40-110) 06/04/19 02:01 Creatine Kinase 165 U/L (30-200) 06/04/19 02:01 Troponin I 1.412 ng/mL (< 0.028) H* 06/04/19 02:01 Serum Total Protein 6.9 g/dL (6.0-8.3) 06/04/19 02:01 Albumin 4.2 g/dL (3.5-5.0) 06/04/19 02:01 - EKG Interpretation EKG: Personally reviewed - Sinus rhythm; No ST-T changes concerning for ischemia - Radiology Interpretation Chest x-ray Status: image reviewed by me (no consolidation or CP angle blunting; midline CABG wires) Hospitalist H&P A/P - Problem (1) NSTEMI (non-ST elevated myocardial infarction) Code(s): I21.4 - NON-ST ELEVATION (NSTEMI) MYOCARDIAL INFARCTION Status: Acute Assessment and Plan: Patient with history of CAD, CABG and here for left chest pain Troponins elevated Admit to inpatient status. Expected to stay at least 2 midnights High risk due to risk of lethal arrhythmias Full dose lovenox, ASA, Statin, plavix Bradycardia with HR in 60s. Hold off on BB for now Cardio consult ECHO ordered NTG SL PRN and morphine IV PRN (2) CAD (coronary artery disease) Code(s): I25.10 - ATHSCL HEART DISEASE OF [place] CORONARY ARTERY W/O ANG PCTRS Status: Acute Qualifiers: Coronary Disease-Associated Artery/Lesion type: [place] artery [place] vs. transplanted heart: viejas heart Associated angina: with other forms of angina Qualified Code(s): I25.118 - Atherosclerotic heart disease of [place] coronary artery with other forms of angina pectoris Assessment and Plan: As mentioned above, has NSTEMI ASA, statin, plavix (3) HLD (hyperlipidemia) Code(s): E78.5 - HYPERLIPIDEMIA, UNSPECIFIED Status: Chronic Qualifiers: Hyperlipidemia type: other hyperlipidemia Qualified Code(s): E78.49 - Other hyperlipidemia; E78.4 - Other hyperlipidemia Assessment and Plan: High dose statin therapy for his NSTEMI (4) HTN (hypertension) Code(s): I10 - ESSENTIAL (PRIMARY) HYPERTENSION Status: Chronic Qualifiers: Hypertension type: essential hypertension Qualified Code(s): I10 - Essential (primary) hypertension Assessment and Plan: Blood pressure well controlled Hold HTN meds for now He will have NTG patch placed for adequate anginal pain relief (5) Status post coronary artery bypass graft Code(s): Z95.1 - PRESENCE OF AORTOCORONARY BYPASS GRAFT Status: Chronic (6) JUDY (obstructive sleep apnea) Code(s): G47.33 - OBSTRUCTIVE SLEEP APNEA (ADULT) (PEDIATRIC) Status: Suspected Assessment and Plan: High suspicion for JUDY given history of snoring and witnessed apneas Will benefit from outpatient PSG/Home sleep study - Plan Plan: Code status - FULL CODE
[2019-06-04 03:17] LABS: CKMB 4.2 ng/mL (0-6.6)
[2019-06-04] MEDS ORDERED: Enoxaparin Sodium 100 MG/ML SYRINGE ONE (03:29)
[2019-06-04] MEDS ORDERED: Furosemide 20 MG/2 ML VIAL SLOW IVP SCH (03:30)
[2019-06-04] MEDS ORDERED: Ondansetron PF 4 MG/2 ML Vial IVP PRN (03:39)
[2019-06-04 04:21] VITALS: BMI 30.1
[2019-06-04] MEDS: Morphine 2 MG/ML SYRINGE SLOW IVP PRN ×4 (04:27→21:42)
[2019-06-04] MEDS: Nitroglycerin 0.4mg/Hour PATCH TD SCH (04:28)
--- NOTE | 2019-06-04 07:58 | RAD ---
Portable frontal chest radiograph: 06/04/2019 COMPARISON: 07/09/2018 HISTORY: Chest pain FINDINGS: Lungs are clear. Heart and mediastinal contours appear within normal limits. Stable midline sternotomy wires. IMPRESSION: No acute findings.
[2019-06-04 08:37] LABS: Troponin I 2.151 ng/mL (< 0.028)
[2019-06-04] MEDS ORDERED: Enoxaparin Sodium 100 MG/ML SYRINGE SC SCH (09:00)
[2019-06-04] MEDS: Aspirin 81 mg Enteric Coated Tablet PO SCH (12:15)
[2019-06-04] MEDS: Clopidogrel Bisulfate 75 MG TAB PO SCH (12:16)
[2019-06-04] MEDS: Acetaminophen 325 MG TAB PO PRN ×2 (12:21→17:20)
--- NOTE | 2019-06-04 13:15 | CT ---
PRELIMINARY REPORT/[facility]/EMERGENCY AFTER HOURS PROCEDURE: EXAM: CTA Chest with Intravenous Contrast CLINICAL HISTORY: Marvel presents to ED with c/o chest pain onset a couple of weeks that is intermittent.. PT reports he w as cutting chicken and felt a sudden pain "felt like a lightning bolt and felt squeezing". Pt reports it was worse today. Pt reports radiation to back. TECHNIQUE: Axial CTA images of the chest with intravenous contrast. MIP reconstructed images were created and re viewed. CONTRAST: With; ISOVUE 370,100mL COMPARISON: None provided. FINDINGS: PULMONARY ARTERIES No intraluminal filling defect suspicious for PE. AORTA No thoracic aortic aneurysm or dissection. LUNGS lungs are clear. No pulmonary mass. No focal airspace consolidation. PLEURAL SPACES No pleural effusion. No pneumothorax. HEART AND MEDIASTINUM No cardiomegaly. No significant pericardial effusion. LYMPH NODES No lymphadenopathy. BONES No focal osseous abnormality or acute fracture. CHEST WALL AND UPPER ABDOMEN There is a mild to moderate fatty infiltration of the liver. IMPRESSION: Unremarkable CTA of the chest. ELECTRONICALLY SIGNED BY: Manav Mercer MD Jun 04, 2019 3:31:09 AM MAP AND CHART MOUNTER This report is intended for review by the ordering physician only, in accordance of law. If you recei ve this report in error, please call [facility] at [phone]. FINAL REPORT CT ANGIOGRAM OF THE CHEST: HISTORY: Chest pain, radiating to the back. COMPARISON: 01/29/2018. TECHNIQUE: CT angiogram of the chest was performed in the axial plane. Three-dimensional reformatted images are submitted for interpretation. FINDINGS: No mediastinal mass, lymphadenopathy, or hematoma. Normal heart size. Limited evaluation of the aor ta due to timing of bolus. Adequate contrast opacification of the pulmonary arterial system to the l evel of the segmental arteries. No filling defect to imply thromboembolism. Trachea and central bronchi are patent. No masses or consolidation. No pleural effusion or pneumoth orax. No lytic or blastic lesions in the osseous structures. Visualized upper abdomen is unremarkab le. IMPRESSION: No evidence of pulmonary artery embolism to the level of the segmental arteries. This report is in agreement with the initial report by [facility] POS: [facility]
[2019-06-04 14:31] LABS: Critical Call Chem Troponin I RESULT DECREASING; Troponin I 1.923 ng/mL (< 0.028)
[2019-06-04] MEDS ORDERED: Iopamidol-370 76% 500 ML 1 ML ONE (14:34)
--- NOTE | 2019-06-04 17:02 | EKG ---
Test Reason : C/P Blood Pressure : / mmHG Vent. Rate : 057 BPM Atrial Rate : 057 BPM P-R Int : 158 ms QRS Dur : 084 ms QT Int : 450 ms P-R-T Axes : 067 048 070 degrees QTc Int : 438 ms Sinus bradycardia Otherwise normal ECG Confirmed by TONI ALEXANDER ([id number]) on 06/04/2019 5:01:43 PM Referred By: ALEX Confirmed By:TONI ALEXANDER
[2019-06-04] MEDS ORDERED: Communication Order-Pharmacy FS SCH (17:30)
--- NOTE | 2019-06-04 18:29 | CON ---
DATE OF CONSULTATION: 06/04/2019 REASON FOR CONSULTATION: [id number] myocardial infarction. HISTORY OF PRESENT ILLNESS: Mr. John Paul Manuel is a gentleman with a previous history of coronary artery bypass grafting, who suffered a [id number] myocardial infarction. Mr. Manuel states he has been doing well up until recently, started having some chest pain. 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 About his bed to get off, he started having increasing amounts of pain. He came here to the emergency room. EKG did not show any ischemic changes, but troponin levels were slightly elevated as will be outlined below. He has been admitted for further observation and therapy. The patient continues to have chest pain off and on, left-sided chest pain. PAST MEDICAL HISTORY: The patient has a history of unstable angina in December 2017, found to have coronary artery disease and underwent bypass surgery. He had internal mammary artery to an LAD good conduit small target 1 mm vessel, saphenous vein graft to a diagonal 1 mm good conduit small target, first saphenous vein graft to arteries marginal 3 small conduit small target. He was not considered redo bypass due to size of the coronary arteries and conduit availability. The patient did have some chest pain in the postoperative period not of cardiac origin. The patient otherwise had been doing well as went back to working at [employer]. MEDICATIONS: At home: 1. Aspirin. 2. Plavix. 3. Metoprolol 12.5 mg twice a day. 4. Lasix 20 mg a day. 5. Potassium 10 mEq a day. 6. Lovastatin 10 mg a day. ALLERGIES: NONE KNOWN. SOCIAL HISTORY: Smoking status. Former smoker, quit 10 years ago. No drugs. REVIEW OF SYSTEMS: CONSTITUTIONAL: No significant weight gain or loss. VISION: No changes. HEARING: No changes. PULMONARY: No cough or wheezing. GASTROINTESTINAL: No nausea, vomiting, or diarrhea. SKIN: No rashes. NEUROLOGIC: No unilateral weakness or numbness. PSYCHIATRIC: No unusual depression or anxiety. HEMATOLOGIC: No unusual bruising. GENITOURINARY: No burning urination. PHYSICAL EXAMINATION: GENERAL: This is a pleasant 54-year-old man, resting comfortably, still has some chest discomfort. VITAL SIGNS: Blood pressure 115/60 and pulse in mid 50s, it is sinus on the monitor. EYES: Sclerae nonicteric. MOUTH: Mucous membranes moist. NECK: Supple. No lymphadenopathy. CARDIAC: Normal S1 and normal S2. There is no murmur, rub, or gallop. ABDOMEN: Soft and nontender. EXTREMITIES: Warm, dry. No clubbing, cyanosis, or edema. Good peripheral pulses. LABORATORY DATA: The troponin levels peak was 2.151, followup was 1.923. Recent cholesterol LDL was elevated at 114. EKG showed sinus bradycardia, but no acute changes. ASSESSMENT: 1. Urk-SL-dhcrqlelv myocardial infarction. 2. Diffusely diseased distal vessels. 3. No EKG changes. 4. Sinus bradycardia. 5. Hypercholesterolemia. PLAN: 1. Increase statins. 2. He received a full dose Lovenox earlier. 3. We will proceed to cardiac catheterization tomorrow. It is unclear what further could be done percutaneously. The vessels are very small. We will proceed if something can be done percutaneously. This will be done tomorrow. The risks including stroke, heart attack, iodine allergy, loss of blood supply to leg or kidney, stent thrombosis, stent restenosis all discussed. He understood and wished to proceed. We will proceed tomorrow morning. He did receive Lovenox earlier today full dose. We will give him a reduced dose this evening and proceed tomorrow. Job ID: [id number]
[2019-06-04] MEDS ORDERED: Enoxaparin Sodium 40 MG/0.4 ML SYRINGE SC SCH (20:55)
[2019-06-04] MEDS: Atorvastatin Calcium 40 MG TAB PO SCH (21:43)
[2019-06-05 04:55] LABS: #Eosinphils 0.2 thou/uL (0.0-0.7); #Lymphocytes 3.1 thou/uL (1.20-3.40); #Monocytes 0.7 thou/uL (0.11-0.59); #Neutrophils 5.4 thou/uL (1.40-6.50); %Basophils 0.5 % (0.0-1.0); %Eosinophils 1.7 % (0.0-10.0); %Monocytes 7.1 % (0.0-10.0); %Neutrophils 57.6 % (42.0-75.0); Hemoglobin 14.5 g/dL (14.0-18.0); Mean Corpuscular Hemoglobin 30.7 pg (27.0-31.0); Mean Platelet Volume 6.7 fL (7.4-10.4); Platelet Count 238 thou/uL (130-400); RBC Distribution Width 12.5 % (11.5-14.5); Red Blood Cell (RBC) Count 4.71 mill/uL (4.70-6.10); White Blood Cell (WBC) Count 9.3 thou/uL (4.8-10.8)
[2019-06-05 05:07] LABS: ALT (SGPT) 39 U/L (8-55); AST (SGOT) 18 U/L (5-34); Albumin 3.8 g/dL (3.5-5.0); Alkaline Phosphatase 60 U/L (40-110); Anion Gap 12 mmol/L (10-20); BUN (Urea Nitrogen) 20 mg/dL (8.4-25.7); Bilirubin, Total 0.2 mg/dL (0.2-1.2); Calc. Creatinine Clearance 119 mL/min (70-130); Calcium 8.9 mg/dL (7.8-10.44); Carbon Dioxide 23 mmol/L (22-29); Cardiac Risk 6.3 (Less than 4.5); Chloride 103 mmol/L (98-107); Cholesterol 195 mg/dl (< 200 Desired); Estimated GFR-MDRD 84; Globulin 2.9 g/dL (2.4-3.5); Glucose 84 mg/dL (70-105); HDL Cholesterol 31 mg/dL (>60 Neg Risk); Potassium 4.3 mmol/L (3.5-5.1); Protein, Total 6.7 g/dL (6.0-8.3); Sodium 134 mmol/L (136-145); Triglycerides 522 mg/dL (Less than 150)
[2019-06-05] MEDS: Sodium Chloride 0.9% 1,000 ML IV SCH ×2 (05:37→19:31)
[2019-06-05] MEDS: Nitroglycerin 0.4mg/Hour PATCH TD SCH (05:37)
[2019-06-05] MEDS ORDERED: Diazepam 5 MG TAB PO SCH (06:00)
[2019-06-05] MEDS ORDERED: Heparin (Artline) 1,000 ML ONE (06:42)
[2019-06-05] MEDS ORDERED: Lidocaine 1% (PF) 30 ML VIAL ONE (06:42)
[2019-06-05] MEDS ORDERED: Fentanyl 100 MCG/2 ML VIAL ONE (07:18)
[2019-06-05] MEDS ORDERED: Midazolam HCl 2 mg/2 ml Vial ONE (07:19)
[2019-06-05] MEDS ORDERED: Nitroglycerin 100MG/250ML BOT 250 ML ONE (07:49)
[2019-06-05] MEDS ORDERED: Acetaminophen/Codeine 30-300mg Tablet PO PRN (08:06)
[2019-06-05] MEDS ORDERED: Sodium Chloride 0.9% 200 ML IV PRN (08:06)
[2019-06-05] MEDS ORDERED: Nitroglycerin 0.4 MG TAB (25 Tab Bottle) SL PRN (08:06)
[2019-06-05] MEDS: Aspirin 81 mg Enteric Coated Tablet PO SCH (08:59)
[2019-06-05] MEDS: Ezetimibe 10 MG TAB PO SCH (08:59)
[2019-06-05] MEDS: Clopidogrel Bisulfate 75 MG TAB PO SCH (08:59)
[2019-06-05] MEDS ORDERED: Iopamidol 370 76% 100 ML VIAL ONE (10:48)
[2019-06-05] MEDS: Acetaminophen/Codeine 30-300mg Tablet PO PRN ×2 (13:33→20:22)
[2019-06-05] MEDS: Atorvastatin Calcium 40 MG TAB PO SCH (20:22)
--- NOTE | 2019-06-05 23:02 | PDOC.HOSPP ---
- Subjective Encounter Date: 06/05/19 Encounter Time: 10:30 Subjective: Overnight, underwent cardiac cath and tolerated the procedure well. Per cardiology, will continue medical management of NSTEMI. This morning, complains of improved substernal pressure. No other complaints. - Objective Vital Signs & Weight: Vital Signs (12 hours) Temp Pulse Pulse Pulse Resp BP BP 06/05/19 19:38 98.2 F 57 L 16 06/05/19 13:48 58 L 61 135/64 130/71 06/05/19 11:15 97.6 F 59 L 12 BP BP Pulse Ox 06/05/19 19:38 114/56 L 97 06/05/19 13:48 06/05/19 11:15 130/67 94 L Weight Weight 204 lb I&O: 06/04/19 06/05/19 06/06/19 06:59 06:59 06:59 Intake Total 590 1150 Output Total 2400 1950 Balance -1810 -800 Result Diagrams: 06/05/19 04:28 06/05/19 04:28 Hospitalist ROS - Review of Systems Constitutional: denies: fever, chills, sweats, weakness, malaise, other Respiratory: denies: cough, dry, shortness of breath, hemoptysis, SOB with excertion, pleuritic pain, sputum, wheezing, other Cardiovascular: reports: chest pain. denies: palpitations, orthopnea, paroxysmal noc. dyspnea, edema Gastrointestinal: denies: nausea, vomiting, abdominal pain Musculoskeletal: denies: neck pain, back pain, leg pain, foot pain Neurological: denies: weakness, numbness, incoordination - Medication Medications: Active Medications Generic Name Dose Route Start Last Admin Trade Name Freq PRN Reason Stop Dose Admin Acetaminophen 650 mg 06/04/19 03:39 06/04/19 17:20 Tylenol PO 650 mg Q4H PRN Administration Headache/Fever/Mild Pain (1-3) Acetaminophen/Codeine Phosphate 1 tab 06/05/19 08:06 06/05/19 08:59 Tylenol #3 PO 1 tab Q4H PRN Administration Mild Pain (1-3) Acetaminophen/Codeine Phosphate 2 tab 06/05/19 08:06 06/05/19 20:22 Tylenol #3 PO 2 tab Q4H PRN Administration Moderate Pain (4-6) Aspirin 81 mg 02/20/20 09:00 06/05/19 08:59 Ecotrin PO 81 mg DAILY SUNIL Administration Atorvastatin Calcium 80 mg 06/04/19 21:00 06/05/19 20:22 Lipitor PO 80 mg HS SUNIL Administration Clopidogrel Bisulfate 75 mg 06/04/19 09:00 06/05/19 08:59 Plavix PO 75 mg DAILY SUNIL Administration Ezetimibe 10 mg 06/05/19 09:00 06/05/19 08:59 Zetia PO 10 mg DAILY SUNIL Administration Sodium Chloride 1,000 mls @ 100 mls/hr 06/05/19 06:00 06/05/19 19:31 Normal Saline 0.9% IV Not Given .Q10H SUNIL Morphine Sulfate 2 mg 06/04/19 03:20 06/04/19 21:42 Morphine SLOW IVP 2 mg Q4H PRN Administration Moderate to Severe Pain (6-10) Nitroglycerin 1 patch 06/04/19 04:00 06/05/19 05:37 Nitro-Dur 0.4mg/Hr Patch TD 1 patch 0400 SUNIL Administration Ondansetron HCl 4 mg 06/04/19 03:39 06/04/19 21:43 Zofran IVP 4 mg Q6H PRN Administration Nausea/Vomiting Sodium Chloride 10 ml 06/05/19 09:00 06/05/19 20:23 Flush - Normal Saline IVF 10 ml Q12HR SUNIL Administration - Exam General Appearance: NAD, awake alert Eye: PERRL Neck: supple, symmetric, no JVD Heart: no murmur (+2 bilateral pedal pulses), no gallops, no rubs, normal peripheral pulses (b/l pedal pulses) Heart - other findings: regular rhythm, mild bradycardia Respiratory: CTAB, no wheezes, no rales, no ronchi Gastrointestinal: soft, non-tender, non-distended, normal bowel sounds Extremities: no edema Extremities - other findings: Left femoral incision, overlying dressing clean, no hematoma Neurological: cranial nerve grossly intact, no weakness, no focal deficits Psychiatric: normal affect, normal behavior, A&O x 3 Hosp A/P - Plan #NSTEMI s/p cardiac cath -s/p cath (06/05); per report, patent bypass vessels -per cardiology will continue medical management within aspirin, plavix, high intensity statin. #HTN -antihtn medications held due to borderline BP #JUDY high risk, will require o/p sleep study
[2019-06-06] MEDS: Sodium Chloride 0.9% 1,000 ML IV SCH (01:11)
[2019-06-06 04:50] LABS: #Eosinphils 0.2 thou/uL (0.0-0.7); #Lymphocytes 2.7 thou/uL (1.20-3.40); #Monocytes 0.7 thou/uL (0.11-0.59); #Neutrophils 4.8 thou/uL (1.40-6.50); %Basophils 0.5 % (0.0-1.0); %Eosinophils 1.9 % (0.0-10.0); %Lymphocytes 31.9 % (21.0-51.0); %Monocytes 8.4 % (0.0-10.0); %Neutrophils 57.3 % (42.0-75.0); Hemoglobin 14.4 g/dL (14.0-18.0); Mean Corpuscular HGB CONC 33.9 g/dL (32.0-36.0); Mean Corpuscular Hemoglobin 31.6 pg (27.0-31.0); Mean Corpuscular Volume 93.3 fL (78.0-98.0); Mean Platelet Volume 6.6 fL (7.4-10.4); Platelet Count 214 thou/uL (130-400); RBC Distribution Width 12.3 % (11.5-14.5); Red Blood Cell (RBC) Count 4.55 mill/uL (4.70-6.10); White Blood Cell (WBC) Count 8.3 thou/uL (4.8-10.8)
[2019-06-06 05:14] LABS: Anion Gap 12 mmol/L (10-20); BUN (Urea Nitrogen) 14 mg/dL (8.4-25.7); Calc. Creatinine Clearance 138 mL/min (70-130); Calcium 8.9 mg/dL (7.8-10.44); Carbon Dioxide 24 mmol/L (22-29); Chloride 105 mmol/L (98-107); Estimated GFR-MDRD Greater than 90; Glucose 94 mg/dL (70-105); Magnesium 2.1 mg/dL (1.6-2.6); Potassium 4.6 mmol/L (3.5-5.1); Sodium 136 mmol/L (136-145)
[2019-06-06] MEDS: Nitroglycerin 0.4mg/Hour PATCH TD SCH (06:41)
[2019-06-06] MEDS: Aspirin 81 mg Enteric Coated Tablet PO SCH (09:16)
[2019-06-06] MEDS: Clopidogrel Bisulfate 75 MG TAB PO SCH (09:16)
[2019-06-06] MEDS: Ezetimibe 10 MG TAB PO SCH (09:17)
[2019-06-06] MEDS: Acetaminophen/Codeine 30-300mg Tablet PO PRN (09:25)
--- NOTE | 2019-06-06 11:15 | PRG ---
DATE OF SERVICE: 06/06/2019 SUBJECTIVE: Mr. Manuel is pain-free. He feels well today. No chest pain or pressure. He is up sitting on the bedside. OBJECTIVE: VITAL SIGNS: Blood pressure 119/69, pulse 60 and it is regular. LUNGS: Clear. CARDIAC: Normal S1, normal S2. ABDOMEN: Soft, nontender. EXTREMITIES: No edema. ASSESSMENT: 1. Previous bypass surgery. 2. Non-ST elevation myocardial infarction related to disease distal to a very small graft with a patent internal mammary to the LAD and diagonal graft widely patent. The graft is in the 3rd marginal branch, goes to a very small vessel that is the infarct vessel, is too small to intervene on. 3. Hypercholesterolemia, mixed, even on the current admission medicine, his triglycerides were 522, cholesterol 195. PLAN: 1. He has been increased to atorvastatin 80 mg a day. 2. Plavix 75 mg a day. 3. Aspirin 81 mg a day. 4. Zetia 10 mg a day. 5. Needs lipids rechecked on this. 6. Nitroglycerin if needed. 7. I have encouraged him to walk on a regular basis. Eventually that small vessel will likely occlude, hopefully he can develop collaterals. No intervention is indicated. He is going to bring all his medicines when he comes for followup. His blood pressure today is 119/69, pulse 58 on the current regimen. ADDENDUM: The patient did suffer a very small non-ST elevation infarction with a peak troponin of 2.15. The ejection fraction is normal and the patient is mildly bradycardic. Therefore, beta blockers are contraindicated in view of bradycardia even off beta blockers and the ejection fraction is 60%. Therefore, CARLOS ALBERTO inhibitors are not necessary in this situation with normal ejection fraction. Job ID: [id number]
[2019-06-06 12:57] VITALS: BP 130/72; TEMP 97.6
--- NOTE | 2019-06-06 17:47 | PDOC.EVN ---
Event Note - Event Note Event Note: Left voicemail for patient re; starting atorvastatin 80 mg PO HS and to discontinue lovastatin. Prescription for atorvastatin transmitted to patient's pharmacy.
--- NOTE | 2019-06-07 02:25 | DIS ---
DATE OF ADMISSION: 06/04/2019 DATE OF DISCHARGE: 06/06/2019 PRIMARY CARE PROVIDER: Sherrie Mcgee PA-C DISCHARGE DIAGNOSES: 1. [id number]-[id number] myocardial infarction. 2. Dyslipidemia. 3. Hyponatremia. CONDITION OF PATIENT ON THE DAY OF DISCHARGE: Stable. I assessed Mr. Manuel on the day of discharge. He denies any chest pain or shortness of breath. Vital signs are stable. S1 and S2 are heard, regular. Lungs are clear to auscultation bilaterally. CONSULTATIONS DURING THIS HOSPITALIZATION: Cardiology, Dr. Bray. POST-ACUTE CARE FOLLOWUP: With primary care provider on 06/10/2019, at 1:[address] Bray in 2 to 3 weeks. DISCHARGE MEDICATIONS: Metoprolol has been discontinued. He has been started on p.r.n. nitroglycerin. Otherwise, no change was made to his pre-admission home medications, which include: 1. Aspirin 81 mg daily. 2. Lasix 20 mg daily. 3. Gabapentin 600 mg 3 times a day. 4. Lovastatin 10 mg at bedtime. 5. Potassium chloride 10 mEq daily. 6. Ibuprofen p.r.n. 7. Plavix 75 mg daily. HOSPITAL COURSE: Mr. Manuel is a pleasant 54-year-old gentleman, who was admitted to [facility] on 06/04/2019, for eny-OY-lhqaxbaag myocardial infarction. He was seen by Cardiology Service. He underwent cardiac catheterization. He was found to have dah-FW-[id number] myocardial infarction related to disease distal to a very small graft with a patent internal mammary to the LAD and diagonal graft widely patent. The graft is in the 3rd marginal branch, goes to a very small vessel that is the infarct vessel and was too small to intervene. He was recommended medical management. His metoprolol was discontinued secondary to bradycardia. He is being discharged home in a stable condition. DIET: Heart healthy. ACTIVITY: As tolerated. DISCHARGE DESTINATION: Home. TIME SPENT: Total amount of time spent coordinating this discharge: 32 minutes. Job ID: [id number]
== END 2019-06-06 12:45 | disposition home or self-care (01) | DRG 281 ==
LOC: ERS 01:25 → 2NO 03:06
PROVIDERS: ADMIT Internal Medicine Sleep Medicine; ATTEND Internal Medicine
PROC: 4A023N7 Measurement of Cardiac Sampling and Pressure, Left Heart, Percutaneous Approach (ICD-10-PCS; principal; 2019-06-05)
PROC: B2151ZZ Fluoroscopy of Left Heart using Low Osmolar Contrast (ICD-10-PCS; 2019-06-05)
PROC: B2131ZZ Fluoroscopy of Multiple Coronary Artery Bypass Grafts using Low Osmolar Contrast (ICD-10-PCS; 2019-06-05)
PROC: B2111ZZ Fluoroscopy of Multiple Coronary Arteries using Low Osmolar Contrast (ICD-10-PCS; 2019-06-05)
DX: I21.4 Non-ST elevation (NSTEMI) myocardial infarction (principal); E87.1 Hypo-osmolality and hyponatremia; I25.10 Atherosclerotic heart disease of native coronary artery without angina pectoris; G47.33 Obstructive sleep apnea (adult) (pediatric); E78.00 Pure hypercholesterolemia, unspecified; E78.2 Mixed hyperlipidemia; I25.2 Old myocardial infarction; Z95.1 Presence of aortocoronary bypass graft; Z90.49 Acquired absence of other specified parts of digestive tract; Z87.891 Personal history of nicotine dependence; Z79.82 Long term (current) use of aspirin; Z79.01 Long term (current) use of anticoagulants; Z79.899 Other long term (current) drug therapy
CPT/HCPCS: 36415; 71045; 71275; 76942; 80048; 80053; 80061; 82550; 82553; 83735; 84484; 85025; 93005; 93010; 93306; 93459; 93798; 94760; 96372; 99152; 99153; C1769; J1644; J1650; J1940; J2001; J2250; J2270; J2405; J3010; Q9967

== ENCOUNTER 2019-10-22 20:16 | Observation (INO) | payer BC ==
[2019-10-22] MEDS ORDERED: Nitroglycerin 0.4 MG TAB 1 EACH ONE (20:55)
[2019-10-22 21:04] LABS: #Basophils 0.1 thou/uL (0.0-0.2); #Eosinphils 0.2 thou/uL (0.0-0.7); #Lymphocytes 2.3 thou/uL (1.20-3.40); #Monocytes 0.6 thou/uL (0.11-0.59); #Neutrophils 5.2 thou/uL (1.40-6.50); %Basophils 0.6 % (0.0-1.0); %Eosinophils 1.9 % (0.0-10.0); %Lymphocytes 27.9 % (21.0-51.0); %Monocytes 6.9 % (0.0-10.0); %Neutrophils 62.7 % (42.0-75.0); Hemoglobin 12.3 g/dL (14.0-18.0); Mean Corpuscular HGB CONC 28.4 g/dL (32.0-36.0); Mean Corpuscular Hemoglobin 26.2 pg (27.0-31.0); Mean Corpuscular Volume 92.3 fL (78.0-98.0); Mean Platelet Volume 6.8 fL (7.4-10.4); Platelet Count 255 thou/uL (130-400); RBC Distribution Width 11.6 % (11.5-14.5); Red Blood Cell (RBC) Count 4.69 mill/uL (4.70-6.10); White Blood Cell (WBC) Count 8.4 thou/uL (4.8-10.8)
--- NOTE | 2019-10-22 21:12 | RAD ---
Chest AP view INDICATION: Chest pain; emergency exam COMPARISON: June 04, 2019 FINDINGS: Lungs: The lungs are clear Cardiac silhouette: Heart size is normal. Post-CABG changes stable. Pulmonary vasculature: Normal Pleural spaces: No pleural effusion or pneumothorax is demonstrated. Upper abdomen: No abnormality seen. Osseous structures: Distal left clavicle excision is stable. No acute fracture or subluxation demons trated. There is scattered degenerative and osteoarthritic change present. Additional findings: None. IMPRESSION: No acute cardiopulmonary abnormality.
[2019-10-22 21:24] LABS: ALT (SGPT) 29 U/L (8-55); AST (SGOT) 25 U/L (5-34); Albumin 4.1 g/dL (3.5-5.0); Alkaline Phosphatase 81 U/L (40-110); Anion Gap 11 mmol/L (10-20); BUN (Urea Nitrogen) 13 mg/dL (8.4-25.7); Bilirubin, Total 0.4 mg/dL (0.2-1.2); Calc. Creatinine Clearance 0 mL/min (70-130); Calcium 9.3 mg/dL (7.8-10.44); Carbon Dioxide 26 mmol/L (22-29); Chloride 103 mmol/L (98-107); Estimated GFR-MDRD 82; Globulin 2.9 g/dL (2.4-3.5); Glucose 90 mg/dL (70-105); Potassium 4.2 mmol/L (3.5-5.1); Sodium 136 mmol/L (136-145)
[2019-10-22] MEDS ORDERED: Acetaminophen 650 MG Suppository PR PRN (23:51)
[2019-10-23] MEDS ORDERED: Nitroglycerin 0.4 MG TAB (25 Tab Bottle) PO PRN (00:13)
--- NOTE | 2019-10-23 00:32 | PDOC.HHP ---
Hospitalist HPI - History of Present Illness Chest pain History of Present Illness: Patient presents complaining of chest pain that started at 6:30 pm. States it was substernal and radiating through to his back. The pain was a 9/10 in severity. Relieved by nitro given once EMS arrived. He has nitro with him but did not think to take it. State the pain eased to a 6/10 and once he was given a 2nd dose of nitro on arrival to the ED, his pain subsided. Denies any associated diaphoresis or sob. The chest pain has been intermittent for the last 5 days. It comes on with exertion or while at rest. He was afraid to seek medical attention due to fear of being exposed to COVID in the hospital. His [employer] is Dr. Bray. Reports he has chronic sob since undergoing a CABG. More recently, he had an NSTEMI in 05/2019 and underwent cath showing disease distal to very small graft with patent internal mammary to LAD and diagonal graft widely patent. The graft in the 3rd marginal branch going to a very small vessel which was the infarct vessel and too small to intervene. Medical management recommended. He was taken of metoprolol due to bradycardia. He reports a dry cough x 3 weeks. Also has had 1-2 loose stools each day for the last 3 weeks. No abdominal pain. No n/v. Has not had any fevers, chills or sweats. States he has been swabbed for COVID at work twice in the last week and both times it came back negative. Reports lower leg cramping last night. He felt his leg muscles spasm. ED Course: On initial presentation patient with BP 180/120, once given 2nd dose of nitroglycerin his BP normalized. He was also given 324 mg of ASA while en route to the hospital. EKG showed normal sinus rhythm, Rate (beats per minute): 61, with no ectopics, Conduction normal, ST segments normal, T waves normal, Gaffney normal. CXR was unremarkable. Labs unremarkable. Initial trop was engative. Hospitalist ROS - Review of Systems Constitutional: denies: fever, chills, sweats, weakness, malaise, other Eyes: denies: pain, vision change, conjunctivae inflammation, eyelid inflammation, redness, other ENT: denies: ear pain, ear discharge, nose pain, nose discharge, nose congestion , mouth pain, mouth swelling, throat pain, throat swelling, other Respiratory: reports: cough (dry x 3 w eeks), dry, SOB with excertion (chronic since CABG x 4) Cardiovascular: reports: chest pain (substernal). denies: palpitations, orthopnea, paroxysmal noc. dyspnea, edema, light headedness, other Gastrointestinal: reports: diarrhea. denies: nausea, vomiting, abdominal pain, constipation, melena, hematochezia, other Genitourinary: denies: dysuria, frequency, incontinence, hematuria, retention, other Musculoskeletal: reports: back pain. denies: neck pain, shoulder pain, arm pain , hand pain, leg pain, foot pain, other Skin: denies: rash, lesions, marion, bruising, other Neurological: denies: weakness, numbness, incoordination, change in speech, confusion, seizures, other - Medication Medications: ALLERGIES: No known drug allergiesl HOME MEDICATIONS: furosemide oral tablet : Strength - 20 mg : ORAL Patient Dose: 1 tab(s) Oral once a day. aspirin oral tablet : Strength - 81 mg : ORAL Patient Dose: 1 tab(s) Oral once a day. losartan tablet : Strength - 25 mg : ORAL Patient Dose: 1 tab(s) Oral once a day. Plavix tablet : Strength - 75 mg : ORAL Patient Dose: 1 tab(s) Oral once a day. gabapentin capsule : Strength - 400 mg : ORAL Patient Dose: 1 tab(s) Oral 3 times a day. Hospitalist History - Past Medical History Cardiac: reports: CAD, HTN, [place] (05/2019) - Past Surgical History Past Surgical History: reports: Appendectomy, CABG (CABG x 4 11/2017) Other Surgical History: Back surgery Right shoulder surgery x 3 Right ear surgery - Family History Family History: reports: no pertinent history - Social History Smoking Status: Former smoker Alcohol: reports: None Drugs: reports: none Living Situation: With Family Activity level: independent ambulation - Exam General Appearance: NAD, awake alert Eye: PERRL, anicteric sclera ENT: normocephalic atraumatic, no oropharyngeal lesions, moist mucosa Neck: supple, symmetric, no lymphadenopathy Heart: RRR, no murmur, no gallops, no rubs, normal peripheral pulses Respiratory: CTAB, no wheezes, no rales, no ronchi, normal chest expansion Gastrointestinal: soft, non-tender, non-distended, normal bowel sounds, no guarding, no rigidity Extremities: no edema Skin: normal turgor, no rashes Neurological: cranial nerve grossly intact, normal sensation to touch Musculoskeletal: normal tone, no muscle wasting Psychiatric: normal affect, normal behavior, A&O x 3 Hospitalist Results - Labs Result Diagrams: 10/22/19 20:54 10/22/19 20:54 Lab results: WBC 8.4 thou/uL (4.8-10.8) 10/22/19 20:54 Hgb 12.3 g/dL (14.0-18.0) L 10/22/19 20:54 Hct 43.3 % (42.0-52.0) 10/22/19 20:54 MCV 92.3 fL (78.0-98.0) 10/22/19 20:54 Plt Count 255 thou/uL (130-400) 10/22/19 20:54 Neutrophils % 62.7 % (42.0-75.0) 10/22/19 20:54 Sodium 136 mmol/L (136-145) 10/22/19 20:54 Potassium 4.2 mmol/L (3.5-5.1) 10/22/19 20:54 Chloride 103 mmol/L (98-107) 10/22/19 20:54 Carbon Dioxide 26 mmol/L (22-29) 10/22/19 20:54 BUN 13 mg/dL (8.4-25.7) 10/22/19 20:54 Creatinine 0.96 mg/dL (0.7-1.3) 10/22/19 20:54 Glucose 90 mg/dL (70-105) 10/22/19 20:54 Calcium 9.3 mg/dL (7.8-10.44) 10/22/19 20:54 Total Bilirubin 0.4 mg/dL (0.2-1.2) 10/22/19 20:54 AST 25 U/L (5-34) 10/22/19 20:54 ALT 29 U/L (8-55) 10/22/19 20:54 Alkaline Phosphatase 81 U/L (40-110) 10/22/19 20:54 Troponin I 0.011 ng/mL (< 0.028) 10/22/19 23:50 B-Natriuretic Peptide 50.3 pg/mL (0-100) 10/22/19 20:55 Serum Total Protein 7.0 g/dL (6.0-8.3) 10/22/19 20:54 Albumin 4.1 g/dL (3.5-5.0) 10/22/19 20:54 - Radiology Interpretation Chest x-ray Status: report reviewed by me Hospitalist H&P A/P - Problem (1) Chest pain Code(s): R07.9 - CHEST PAIN, UNSPECIFIED Status: Acute (2) Cough Code(s): R05 - COUGH Status: Acute (3) Chronic shortness of breath Code(s): R06.02 - SHORTNESS OF BREATH Status: Chronic (4) Diarrhea Code(s): R19.7 - DIARRHEA, UNSPECIFIED Status: Acute (5) Leg cramping Code(s): R25.2 - CRAMP AND SPASM Status: Acute (6) CAD (coronary artery disease) Code(s): I25.10 - ATHSCL HEART DISEASE OF [place] CORONARY ARTERY W/O ANG PCTRS Status: Chronic Qualifiers: Coronary Disease-Associated Artery/Lesion type: [place] artery [place] vs. transplanted heart: [place] heart Associated angina: with other forms of angina Qualified Code(s): I25.118 - Atherosclerotic heart disease of [place] coronary artery with other forms of angina pectoris (7) HLD (hyperlipidemia) Code(s): E78.5 - HYPERLIPIDEMIA, UNSPECIFIED Status: Chronic Qualifiers: Hyperlipidemia type: other hyperlipidemia Qualified Code(s): E78.49 - Other hyperlipidemia; E78.4 - Other hyperlipidemia (8) HTN (hypertension) Code(s): I10 - ESSENTIAL (PRIMARY) HYPERTENSION Status: Chronic Qualifiers: Hypertension type: essential hypertension Qualified Code(s): I10 - Essential (primary) hypertension (9) Status post coronary artery bypass graft Code(s): Z95.1 - PRESENCE OF AORTOCORONARY BYPASS GRAFT Status: Chronic - Plan Plan: Cardiac monitoring and trend troponins. Recent Echo in 05/2019. Cardiology consult, he is known to Dr. Bray. Continue Aspirin and statin. D-Dimer, if + will obtain CTA Chest. Check Mg+ and phosphorus. Monitor BP and reconcile home medications once verified. Monitor O2 sats. GI Prophylaxis with Famotidine. CODE STATUS FULL Surrogate Decision maker: Ivonne Salcedo.
[2019-10-23 00:51] VITALS: BMI 30.3
[2019-10-23] MEDS: Acetaminophen 325 MG TAB PO PRN ×2 (01:23→14:28)
[2019-10-23] MEDS ORDERED: diphenhydrAMINE 25 MG CAP PO PRN (02:36)
[2019-10-23 02:48] LABS: #Eosinphils 0.2 thou/uL (0.0-0.7); #Lymphocytes 2.1 thou/uL (1.20-3.40); #Monocytes 0.7 thou/uL (0.11-0.59); #Neutrophils 4.3 thou/uL (1.40-6.50); %Basophils 0.6 % (0.0-1.0); %Eosinophils 2.3 % (0.0-10.0); %Lymphocytes 28.2 % (21.0-51.0); %Monocytes 9.9 % (0.0-10.0); Hemoglobin 13.6 g/dL (14.0-18.0); Mean Corpuscular HGB CONC 34.3 g/dL (32.0-36.0); Mean Corpuscular Hemoglobin 31.9 pg (27.0-31.0); Mean Platelet Volume 6.5 fL (7.4-10.4); Platelet Count 220 thou/uL (130-400); RBC Distribution Width 11.6 % (11.5-14.5); Red Blood Cell (RBC) Count 4.28 mill/uL (4.70-6.10); White Blood Cell (WBC) Count 7.3 thou/uL (4.8-10.8)
[2019-10-23 03:13] LABS: Anion Gap 11 mmol/L (10-20); BUN (Urea Nitrogen) 13 mg/dL (8.4-25.7); Calc. Creatinine Clearance 116 mL/min (70-130); Calcium 8.8 mg/dL (7.8-10.44); Carbon Dioxide 26 mmol/L (22-29); Cardiac Risk 4.1 (Less than 4.5); Chloride 103 mmol/L (98-107); Cholesterol 118 mg/dl (< 200 Desired); Estimated GFR-MDRD 81; Glucose 121 mg/dL (70-105); HDL Cholesterol 29 mg/dL (>60 Neg Risk); LDL Cholesterol, Calculated 52 mg/dL; Potassium 3.6 mmol/L (3.5-5.1); Sodium 136 mmol/L (136-145); Triglycerides 186 mg/dL (Less than 150)
[2019-10-23] MEDS ORDERED: Aspirin 81 mg Enteric Coated Tablet PO SCH (09:00)
[2019-10-23] MEDS ORDERED: Clopidogrel Bisulfate 75 MG TAB PO SCH (09:00)
[2019-10-23] MEDS ORDERED: Losartan 25 MG TAB PO SCH (09:00)
[2019-10-23] MEDS ORDERED: Aspirin 325 mg Enteric Coated Tablet PO SCH (09:00)
[2019-10-23] MEDS: Gabapentin 400 MG CAP PO SCH ×2 (09:14→14:28)
--- NOTE | 2019-10-23 14:14 | PDOC.HOSPP ---
- Subjective Encounter Date: 10/23/19 Encounter Time: 09:00 Subjective: no chest pain or sob or palp - Objective Vital Signs & Weight: Vital Signs (12 hours) Temp Pulse Resp BP Pulse Ox 10/23/19 11:00 97.7 F 58 L 14 101/58 L 94 L 10/23/19 07:00 97.5 F L 64 18 117/65 94 L 10/23/19 03:12 97.9 F 65 18 124/73 96 Weight Admit Weight 205 lb 7 oz Weight 205 lb 7 oz I&O: 10/22/19 10/23/19 10/24/19 06:59 06:59 06:59 Intake Total 240 Balance 240 Result Diagrams: 10/23/19 02:41 10/23/19 02:41 Hospitalist ROS - Medication Medications: Active Medications Generic Name Dose Route Start Last Admin Trade Name Freq PRN Reason Stop Dose Admin Acetaminophen 650 mg 10/22/19 23:51 10/23/19 01:23 Tylenol PO 650 mg Q4H PRN Administration Headache/Fever/Mild Pain (1-3) Aspirin 81 mg 10/23/19 09:00 10/23/19 09:18 Ecotrin PO 81 mg DAILY SUNIL Administration Clopidogrel Bisulfate 75 mg 10/23/19 09:00 10/23/19 09:14 Plavix PO 75 mg DAILY SUNIL Administration Diphenhydramine HCl 25 mg 10/23/19 02:36 10/23/19 03:10 Benadryl PO 25 mg HSPRN PRN Administration Itching & Insomnia Gabapentin 400 mg 10/23/19 09:00 10/23/19 09:14 Neurontin PO 400 mg TID SUNIL Administration Isosorbide Mononitrate 30 mg 10/23/19 09:00 10/23/19 09:14 Imdur Er PO 30 mg DAILY SUNIL Administration Losartan Potassium 25 mg 10/23/19 09:00 10/23/19 09:14 Cozaar PO 25 mg DAILY SUNIL Administration Ranolazine 500 mg 10/23/19 09:00 10/23/19 09:14 Ranexa PO 500 mg BID SUNIL Administration - Exam General Appearance: awake alert Eye: PERRL, anicteric sclera ENT: no oropharyngeal lesions, moist mucosa Neck: supple, no JVD Heart: RRR, no murmur Respiratory: no wheezes, no rales Gastrointestinal: soft, non-tender, non-distended, normal bowel sounds Extremities: no cyanosis, no edema Neurological: cranial nerve grossly intact, no focal deficits Psychiatric: normal affect, A&O x 3 Hosp A/P (1) Chest pain Code(s): R07.9 - CHEST PAIN, UNSPECIFIED Status: Acute Qualifiers: Chest pain type: unspecified Qualified Code(s): R07.9 - Chest pain, unspecified (2) CAD (coronary artery disease) Code(s): I25.10 - ATHSCL HEART DISEASE OF [place] CORONARY ARTERY W/O ANG PCTRS Status: Chronic Qualifiers: Coronary Disease-Associated Artery/Lesion type: bypass graft [place] vs. transplanted heart: [place] heart Associated angina: with stable angina Qualified Code(s): I25.708 - Atherosclerosis of coronary artery bypass graft(s) , unspecified, with other forms of angina pectoris (3) HLD (hyperlipidemia) Code(s): E78.5 - HYPERLIPIDEMIA, UNSPECIFIED Status: Chronic Qualifiers: Hyperlipidemia type: other hyperlipidemia Qualified Code(s): E78.49 - Other hyperlipidemia; E78.4 - Other hyperlipidemia (4) HTN (hypertension) Code(s): I10 - ESSENTIAL (PRIMARY) HYPERTENSION Status: Chronic Qualifiers: Hypertension type: essential hypertension Qualified Code(s): I10 - Essential (primary) hypertension (5) JUDY (obstructive sleep apnea) Code(s): G47.33 - OBSTRUCTIVE SLEEP APNEA (ADULT) (PEDIATRIC) Status: Suspected - Plan hemostable prior cath in 05/2019 for med mgmt he has had covid 19 pcr x2 done at his work place ([employer]) dc plan per is on ranexa, imdur, very low dose coreg, losartan, asp, plavix and lipitor
--- NOTE | 2019-10-23 16:07 | CON ---
DATE OF CONSULTATION: 10/23/2019 REASON FOR CONSULTATION: Chest pain. HISTORY OF PRESENT ILLNESS: Mr. Manuel is a 54-year-old gentleman. He has had a history of coronary artery bypass grafting. He was at work yesterday at [employer], had severe pain in the middle of his chest, going across his chest. He notified nurse. The patient's blood pressure was over 190 systolic. He had nitroglycerin at that time, but did not take any. He was transferred to [facility]. He was given nitroglycerin on the way and then a dose in the emergency room and his pain resolved. He has been pain-free . PAST MEDICAL HISTORY: He has had previous bypass surgery. He did undergo cardiac catheterization earlier this year showing patent grafts with medical therapy being the most appropriate. He also has labile hypertension. MEDICATIONS: At home, please see nurses' notes. REVIEW OF SYSTEMS: CONSTITUTIONAL: No significant weight gain or loss. VISION: No changes. HEARING: No changes. PULMONARY: No cough or wheezing. GASTROINTESTINAL: No nausea, vomiting, or diarrhea. SKIN: No rashes. SOCIAL HISTORY: No alcohol or tobacco. PHYSICAL EXAMINATION: VITAL SIGNS: On examination, blood pressure 101/58, pulse 60. LUNGS: Clear. CARDIAC: Normal S1. Normal S2. ABDOMEN: Soft and nontender. EXTREMITIES: Warm and dry. No clubbing or cyanosis. There is no edema. DIAGNOSTIC DATA: EKG, no acute changes. Troponin levels were negative. ASSESSMENT: 1. Previous bypass. 2. Episode of angina. 3. Labile hypertension. PLAN: 1. Add amlodipine 2.5 mg a day. 2. Increase losartan to 50 mg a day. 3. Tell the patient if he has chest pain or pressure, he would probably take nitroglycerin and another dose in 5 minutes if no resolution. The patient can be released home. Job ID: [id number]
[2019-10-23 16:13] VITALS: BP 104/57; TEMP 97.5
[2019-10-23] MEDS ORDERED: Carvedilol 3.125 MG TAB PO SCH ×2 (17:00)
[2019-10-23] MEDS ORDERED: Amlodipine 5 MG TAB PO SCH (17:15)
[2019-10-23] MEDS ORDERED: Atorvastatin Calcium 40 MG TAB PO SCH (21:00)
--- NOTE | 2019-10-24 07:35 | DIS ---
DATE OF ADMISSION: 10/22/2019 DATE OF DISCHARGE: 10/23/2019 DISCHARGE DISPOSITION: To home. PRIMARY DISCHARGE DIAGNOSES: 1. Chest pain, noncardiac. 2. Hypertensive urgency on admission resolved. SECONDARY DISCHARGE DIAGNOSES: Dyslipidemia and prior history of coronary artery bypass grafting. PROCEDURES DONE DURING HOSPITALIZATION: Chest x-ray done showed no acute cardiopulmonary abnormality. H and H are 13 and 39, platelet count 220, MCV is 93, white count of 7, D-dimer 0.3. BUN 13 and creatinine 0.9. Total cholesterol 118, triglycerides 186, LDL 52, HDL 29, and TSH 2.2. Troponin x3 negative. BNP 50. DISCHARGE MEDICATIONS: 1. Aspirin 81 mg p.o. daily. 2. Gabapentin 400 mg p.o. 3 times daily. 3. Cozaar 50 mg p.o. daily. 4. Imdur extended release 30 mg p.o. daily. 5. Plavix 75 mg p.o. daily. 6. Norvasc 2.5 mg p.o. daily. 7. Lipitor 80 mg p.o. at bedtime. ALLERGIES: NO KNOWN DRUG ALLERGIES. INPATIENT CONSULT: Dr. Bray for Cardiology. DISCHARGE PLAN: The patient to follow up with Dr. Bray in 2 weeks. The patient needs to follow up with his primary care physician, Sherrie Mcgee in 1 week. He also needs to check his blood pressure and pulse twice daily and record for 10 days and to follow up with primary care physician. BRIEF COURSE DURING HOSPITALIZATION: The patient initially got admitted on the with complaints of chest pain. This was in the substernal area radiating to his back. He got relief with sublingual nitroglycerin. In view of prior history of CABG and multiple risk factors, the patient was placed under observation on telemetry. Three sets of troponin were negative. The patient has had prior cardiac cath in May of 2019 and was for medical management. He was evaluated by Dr. Bray during his brief stay here. He has remained chest-pain free and has been cleared for discharge by Dr. Bray. His medications were optimized. Amlodipine 2.5 mg was added and his Cozaar was increased to 50 mg. Also, he had addition of Imdur extended release 30 mg daily to his medication regimen. His Lasix and K-Dur were removed. Please note, I have seen and examined the patient on the day of discharge. Job ID: [id number]
[2019-10-24] MEDS ORDERED: Amlodipine 5 MG TAB PO SCH (09:00)
[2019-10-24] MEDS ORDERED: Losartan 25 MG TAB PO SCH (09:00)
== END 2019-10-23 18:20 | disposition home or self-care (01) ==
LOC: ERS 20:16 → 2NO 21:55
PROVIDERS: ADMIT Internal Medicine; ATTEND Internal Medicine
DX: R07.89 Other chest pain (principal); I16.0 Hypertensive urgency; E78.49 Other hyperlipidemia; I10 Essential (primary) hypertension; I25.118 Atherosclerotic heart disease of native coronary artery with other forms of angina pectoris; I25.2 Old myocardial infarction; Z79.82 Long term (current) use of aspirin; Z79.899 Other long term (current) drug therapy; Z87.891 Personal history of nicotine dependence; Z95.1 Presence of aortocoronary bypass graft
CPT/HCPCS: 36415; 71045; 80048; 80053; 80061; 83735; 83880; 84443; 84484; 85025; 85379; 93005; 94760; G0378; Q0163

== ENCOUNTER 2020-03-16 22:52 | Observation (INO) | payer BC ==
[2020-03-16 23:35] LABS: #Basophils 0.1 thou/uL (0.0-0.2); #Eosinphils 0.2 thou/uL (0.0-0.7); #Lymphocytes 2.9 thou/uL (1.20-3.40); #Monocytes 0.8 thou/uL (0.11-0.59); #Neutrophils 4.9 thou/uL (1.40-6.50); %Basophils 1.3 % (0.0-1.0); %Eosinophils 2.2 % (0.0-10.0); %Lymphocytes 32.8 % (21.0-51.0); %Monocytes 8.5 % (0.0-10.0); %Neutrophils 55.3 % (42.0-75.0); Hemoglobin 14.1 g/dL (14.0-18.0); Mean Corpuscular HGB CONC 34.1 g/dL (32.0-36.0); Mean Corpuscular Hemoglobin 31.3 pg (27.0-31.0); Mean Corpuscular Volume 91.8 fL (78.0-98.0); Mean Platelet Volume 6.7 fL (7.4-10.4); Platelet Count 214 thou/uL (130-400); RBC Distribution Width 11.9 % (11.5-14.5); Red Blood Cell (RBC) Count 4.49 mill/uL (4.70-6.10); White Blood Cell (WBC) Count 8.9 thou/uL (4.8-10.8)
[2020-03-16] MEDS ORDERED: Aspirin Chewable 81 MG TAB ONE (23:43)
[2020-03-16] MEDS ORDERED: Nitroglycerin 0.4 MG TAB 1 EACH ONE (23:43)
[2020-03-16 23:50] LABS: ALT (SGPT) 41 U/L (8-55); AST (SGOT) 23 U/L (5-34); Albumin 4.2 g/dL (3.5-5.0); Alkaline Phosphatase 74 U/L (40-110); Anion Gap 13 mmol/L (10-20); BUN (Urea Nitrogen) 15 mg/dL (8.4-25.7); Bilirubin, Total 0.2 mg/dL (0.2-1.2); CK (CPK) 223 U/L (30-200); Calc. Creatinine Clearance 0 mL/min (70-130); Carbon Dioxide 25 mmol/L (22-29); Chloride 105 mmol/L (98-107); Globulin 2.9 g/dL (2.4-3.5); Glucose 107 mg/dL (70-105); Potassium 4.1 mmol/L (3.5-5.1); Protein, Total 7.1 g/dL (6.0-8.3); Sodium 139 mmol/L (136-145)
[2020-03-17] MEDS ORDERED: Nitroglycerin 2% Ointment 1 INCH/1 GM Packet ONE (00:01)
--- NOTE | 2020-03-17 00:22 | PDOC.HHP ---
Hospitalist HPI - History of Present Illness Chest pain History of Present Illness: PCP: Sherrie Mcgee The patient is a 55-year-old male with a past medical history significant for CAD, [place] (2018), CABG x4, HLD that presents to the emergency department via personal vehicle for the above complaint. Patient reports developing the acute onset of chest pain at approximately 2300 while working at [employer]. He reports that he was pulling tenders when he developed left-sided chest pain, described as a knife stabbing me, constant, lasting approximately 10 minutes, exacerbated with movement and relieved by nothing. Reports some associated shortness of breath. He reports that his blood pressure has been high lately and he also is "worn out". He denies any COPD/asthma history. No history of DVT/PE. No recent cough, fever/illness. He denies any heart palpitations, lightheadedness or swelling of his lower extremities. He denies abdominal pain, nausea, vomiting, diarrhea. Denies any urinary symptoms. The patient was seen here on 11/01 for similar complaint. At that encounter, he had a negative cardiac work-up. Also, he had a cardiac catheterization in May 2019, no intervention. He had an echocardiogram in May 2019, EF 60-65% with trace mitral valve regurgitation. ED Course: VITAL SIGNS SatMar 16, 2020 22:53 KRISTEN uF Susannah BP: 182/85, MAP: 124, Pulse: 67, Resp: 16, Temp: 97.7 (Oral), Pain: 10, O2 sat: 99, Time: 03/16/2020 22:53. VITAL SIGNS SatMar 16, 2020 23:44 KRISTEN Cutler Miranda BP: 144/82, Pulse: 62, Resp: 14, Pain: 8, O2 sat: 99 on (Room Air), Time: 03/16/2020 23:44. Medication administration: Nitro-Bid transdermal 1 inch Topical Acknowledged 23:47 03/16/2020 nitroglycerin sublingual 0.4 mg Sublingual Given 23:56 03/16/2020 nitroglycerin sublingual 0.4 mg Sublingual Given 23:48 03/16/2020 aspirin oral 324 mg Oral Given 23:48 03/16/2020 Hospitalist ROS - Review of Systems All other systems reviewed; all pertinent +/- noted in HPI/Subj - Medication Medications: furosemide oral tablet : Strength - 20 mg : ORAL Patient Dose: 1 tab(s) Oral once a day. aspirin oral tablet : Strength - 81 mg : ORAL Patient Dose: 1 tab(s) Oral once a day. losartan tablet : Strength - 25 mg : ORAL Patient Dose: 1 tab(s) Oral once a day. Plavix tablet : Strength - 75 mg : ORAL Patient Dose: 1 tab(s) Oral once a day. gabapentin capsule : Strength - 400 mg : ORAL Patient Dose: 1 tab(s) Oral 3 times a day. Allergies: No known drug allergies Hospitalist History - Past Medical History Source: patient, RN notes reviewed Cardiac: reports: CAD, HTN, Hyperlipidemia - Past Surgical History Past Surgical History: reports: Appendectomy, CABG (CABG x 4 11/2017), Other (Right shoulder surgery x3, back surgery) - Family History Family History: reports: cardiac disorder - Social History Smoking Status: Former smoker (Quit greater than 10 years ago) Alcohol: reports: None Drugs: reports: none Living Situation: Other (Lives with his fiance) Occupation: Works at [employer] Activity level: independent ambulation - Exam General Appearance: NAD, awake alert. negative: ill appearing Eye: anicteric sclera ENT: normocephalic atraumatic Neck: supple, symmetric Heart: RRR, no murmur, no gallops, no rubs, normal peripheral pulses Respiratory: CTAB, no wheezes, no rales, no ronchi, normal chest expansion, no tachypnea Gastrointestinal: soft, non-tender, normal bowel sounds, no bruit, no guarding, no rigidity Extremities: no cyanosis, no edema Skin: no rashes Neurological: no focal deficits Musculoskeletal: normal tone, normal strength Psychiatric: normal affect, A&O x 3 Hospitalist Results - Labs Result Diagrams: 03/16/20 23:01 03/16/20 23:01 Lab results: WBC 8.9 thou/uL (4.8-10.8) 03/16/20 23:01 Hgb 14.1 g/dL (14.0-18.0) 03/16/20 23:01 Hct 41.3 % (42.0-52.0) L 03/16/20 23:01 MCV 91.8 fL (78.0-98.0) 03/16/20 23:01 Plt Count 214 thou/uL (130-400) 03/16/20 23:01 Neutrophils % 55.3 % (42.0-75.0) 03/16/20 23:01 Sodium 139 mmol/L (136-145) 03/16/20 23:01 Potassium 4.1 mmol/L (3.5-5.1) 03/16/20 23:01 Chloride 105 mmol/L (98-107) 03/16/20 23:01 Carbon Dioxide 25 mmol/L (22-29) 03/16/20 23:01 BUN 15 mg/dL (8.4-25.7) 03/16/20 23:01 Creatinine 1.06 mg/dL (0.7-1.3) 03/16/20 23:01 Glucose 107 mg/dL (70-105) H 03/16/20 23:01 Calcium 9.0 mg/dL (7.8-10.44) 03/16/20 23:01 Total Bilirubin 0.2 mg/dL (0.2-1.2) 03/16/20 23:01 AST 23 U/L (5-34) 03/16/20 23:01 ALT 41 U/L (8-55) 03/16/20 23:01 Alkaline Phosphatase 74 U/L (40-110) 03/16/20 23:01 Creatine Kinase 223 U/L (30-200) H 03/16/20 23:01 Troponin I Less than 0.010 ng/mL (< 0.028) 03/16/20 23:01 Serum Total Protein 7.1 g/dL (6.0-8.3) 03/16/20 23:01 Albumin 4.2 g/dL (3.5-5.0) 03/16/20 23:01 - EKG Interpretation EK lead EKG interpreted by Emergency Department Physician at time of study, 12 lead EKG shows normal sinus rhythm, Rate (beats per minute): 80, with no ectopics, Interpretation: normal EKG, Conduction normal, ST segments normal, T waves normal, [place] normal, Clinical impression: Normal EKG. - Radiology Interpretation Chest x-ray Status: pending Hospitalist H&P A/P - Problem (1) Unstable angina Status: Acute (2) Hypertension Code(s): I10 - ESSENTIAL (PRIMARY) HYPERTENSION Status: Chronic (3) CAD (coronary artery disease) Code(s): I25.10 - ATHSCL HEART DISEASE OF [place] CORONARY ARTERY W/O ANG PCTRS Status: Chronic (4) HLD (hyperlipidemia) Code(s): E78.5 - HYPERLIPIDEMIA, UNSPECIFIED Status: Chronic Qualifiers: Hyperlipidemia type: other hyperlipidemia Qualified Code(s): E78.49 - Other hyperlipidemia; E78.4 - Other hyperlipidemia - Plan Plan: 55/M with PMH CAD, CABG x4 presents for chest pain. Admit to telemetry floor, observation status. Expected length of stay less than 2 midnights. Presented hypertensive with NL HR, RR, SPO2, afebrile. EKG normal sinus rhythm no ischemic changes. CXR no acute cardiopulmonary process. Initial troponin negative, CK 223 CCL - 05/2019 Echo - 05/2019 #Unstable angina Heart score 4, MARY score 3, [place] PE score 0 Trend troponins, check BNP, FLP, mag level. Continue aspirin, Nitropaste, start statin, BB N.p.o. Consult cardiology #Hypertension Presented hypertensive Takes Lasix and losartan at home. We will restart home medications when reconciled by nursing. #CAD Takes aspirin and Plavix at home. We will restart aspirin Plavix. SCDs for DVT prophylaxis. Pepcid for GI prophylaxis. Full code. Discussed the case with Dr. Manzo.
[2020-03-17] MEDS ORDERED: Acetaminophen 325 MG TAB PO PRN (00:59)
[2020-03-17] MEDS ORDERED: Ondansetron PF 4 MG/2 ML Vial IVP PRN (00:59)
[2020-03-17] MEDS ORDERED: Ondansetron ODT 4 MG TAB PO PRN (00:59)
[2020-03-17] MEDS ORDERED: Atorvastatin Calcium 40 MG TAB PO SCH (01:30)
[2020-03-17 02:25] VITALS: BMI 29.3
[2020-03-17] MEDS: Carvedilol 3.125 MG TAB PO SCH ×2 (02:44→02:57)
[2020-03-17 05:54] LABS: #Basophils 0.1 thou/uL (0.0-0.2); #Eosinphils 0.1 thou/uL (0.0-0.7); #Lymphocytes 2.7 thou/uL (1.20-3.40); #Monocytes 0.5 thou/uL (0.11-0.59); #Neutrophils 2.8 thou/uL (1.40-6.50); %Lymphocytes 43.2 % (21.0-51.0); %Monocytes 8.4 % (0.0-10.0); %Neutrophils 45.5 % (42.0-75.0); Hemoglobin 12.8 g/dL (14.0-18.0); Mean Corpuscular HGB CONC 33.1 g/dL (32.0-36.0); Mean Corpuscular Hemoglobin 30.6 pg (27.0-31.0); Mean Corpuscular Volume 92.7 fL (78.0-98.0); Mean Platelet Volume 6.5 fL (7.4-10.4); Platelet Count 187 thou/uL (130-400); RBC Distribution Width 11.8 % (11.5-14.5); Red Blood Cell (RBC) Count 4.19 mill/uL (4.70-6.10); White Blood Cell (WBC) Count 6.2 thou/uL (4.8-10.8)
[2020-03-17] MEDS: Nitroglycerin 2% Ointment 1 INCH/1 GM Packet TOP SCH ×2 (05:59→14:55)
[2020-03-17 06:13] LABS: Anion Gap 12 mmol/L (10-20); BUN (Urea Nitrogen) 15 mg/dL (8.4-25.7); Calc. Creatinine Clearance 114 mL/min (70-130); Calcium 8.6 mg/dL (7.8-10.44); Carbon Dioxide 26 mmol/L (22-29); Cardiac Risk 3.5 (Less than 4.5); Chloride 104 mmol/L (98-107); Cholesterol 102 mg/dl (< 200 Desired); Glucose 92 mg/dL (70-105); HDL Cholesterol 29 mg/dL (>60 Neg Risk); LDL Cholesterol, Calculated 54 mg/dL; Potassium 4.5 mmol/L (3.5-5.1); Sodium 137 mmol/L (136-145); Triglycerides 93 mg/dL (Less than 150)
[2020-03-17 06:18] LABS: Troponin I 0.025 ng/mL (< 0.028)
--- NOTE | 2020-03-17 07:10 | RAD ---
SINGLE VIEW CHEST: Date: 03/16/2020 COMPARISON: 10/22/2019. HISTORY: Chest pain and shortness of breath. FINDINGS: Single view of the chest shows normal sized cardiomediastinal silhouette. The patient is status post sternotomy. There is no evidence of consolidation, mass, or pleural effusion. The bones are unremarka ble. IMPRESSION: No evidence of acute cardiopulmonary disease. POS: EAA
[2020-03-17 08:24] LABS: SARS-CoV-2 MS2 Positive; SARS-CoV-2 N Gene Negative; SARS-CoV-2 S Gene Negative; SARS-CoV-2 by NAA Not Detected (NotDetected); SARS-CoV-2 orf1ab Negative
[2020-03-17] MEDS ORDERED: Aspirin Chewable 81 MG TAB PO SCH (09:00)
[2020-03-17] MEDS ORDERED: Clopidogrel Bisulfate 75 MG TAB PO SCH (09:00)
[2020-03-17] MEDS ORDERED: Famotidine 20 MG TAB PO SCH (09:00)
[2020-03-17 14:47] VITALS: BP 146/73
[2020-03-17 14:50] VITALS: TEMP 98.7
[2020-03-17] MEDS ORDERED: Ketorolac Tromethamine 30 MG/ML VIAL IVP SCH ×2 (15:00→18:00)
--- NOTE | 2020-03-17 16:44 | PDOC.DS.DS ---
Provider - Provider Date of Admission: 03/17/20 00:18 Date of Discharge: 03/17/20 Admitting Provider: Vik Manzo MD Consultations: Cardiology (Dr. Bray) Primary Care Physician: LAWSON Walter Course - Hospital Course Hospital Course: Discharge diagnosis: 1. Chest pain 2. Chest pain most likely secondary to musculoskeletal etiology 3. COVID-19 PCR test negative Hospital course: Patient is a pleasant 55-year-old gentleman who was admitted to the hospital on March 17, 2020 for chest pain, most likely secondary to musculoskeletal etiology. He was seen by cardiology service. He has been started on Lodine. Pulmonary embolism was ruled out with a negative D-dimer. He is being discharged home in a stable condition. He has been advised to return to work as tolerated in 4 days. Discharge destination: Home Resuscitation Status: 03/17/20 00:59 Resuscitation Status Routine Co-Sign Provider: Resuscitation Status: FULL: Full Resuscitation Discussed with: patient - Labs Lab Results: 03/17/20 05:42 03/17/20 05:42 Abnormal Lab Results - Last 48 hrs 03/16/20 23:01: Creatine Kinase 223 H 03/16/20 23:01: RBC 4.49 L, Hct 41.3 L, MCH 31.3 H, MPV 6.7 L, Basophils % 1.3 H, Monocytes # 0.8 H 03/17/20 05:42: RBC 4.19 L, Hgb 12.8 L, Hct 38.8 L, MPV 6.5 L - Physical Exam Vitals: Vital Signs (12 hours) Temp Pulse Resp BP BP Pulse Ox 03/17/20 14:42 98.7 F 70 16 146/73 H 96 03/17/20 12:00 97.7 F 56 L 16 127/75 96 03/17/20 09:35 98.0 F 65 20 123/66 95 03/17/20 08:07 97 03/17/20 04:57 98.0 F 54 L 15 104/57 L 97 Weight Weight 204 lb 9.6 oz Physical Exam: The patient was seen and examined on the day of discharge. Patient denies shortness of breath, reports chest pain is better. Vital signs are stable. S1 and S2 are heard. Lungs are clear to auscultation bilaterally. Plan - Discharge Medications Prescriptions: Etodolac [Lodine ER] 400 mg PO Q24HR #7 tab Home Medications: Medication Instructions Recorded Confirmed Type Aspirin [Ecotrin Low Strength] 81 mg PO DAILY 12/19/17 03/17/20 History Clopidogrel Bisulfate [Plavix] 75 mg PO DAILY #30 tab 12/24/17 03/17/20 Rx Gabapentin [Neurontin] 600 mg PO TID 06/04/19 03/17/20 History Atorvastatin Calcium 80 mg PO HS #30 tablet 06/06/19 03/17/20 Rx Amlodipine [Norvasc] 2.5 mg PO DAILY #30 tab 10/23/19 03/17/20 Rx Etodolac [Lodine ER] 400 mg PO Q24HR #7 tab 03/17/20 Rx Losartan [Cozaar] 50 mg PO DAILY 03/17/20 03/17/20 History Allergies: No Known Allergies Allergy (Verified 03/17/20 02:47) - Discharge Instructions Discharge Instructions:: Return to work as tolerated on Saturday, March 21, 2020. Activity:: Activity as Tolerated Nourishment:: Heart Healthy Diet - Follow up Plan Referrals: Sherrie Mcgee PA [Primary Care Provider] - 3 Days Disposition: HOME Quality - Care Measures CORE MEASURES:: N/A
--- NOTE | 2020-03-17 20:54 | CON ---
DATE OF CONSULTATION: 03/17/2020 REASON FOR CONSULTATION: Recurrent chest pain. HISTORY OF PRESENT ILLNESS: Mr. Manuel is a gentleman who has undergone coronary artery bypass grafting for multivessel coronary artery disease. He underwent bypass surgery in December of 2017. He came back with recurrent chest pain and ultimately underwent repeat cardiac catheterization in May of this year. He was found to have all his grafts were patent with a patent SINGH to the internal mammary, patent vein graft to diagonal, saphenous vein graft was distally diseased, obtuse marginal 3. The patient was in the hospital with chest pain in October of this year and then again when he is working, he started having sharp, stabbing chest pain, took nitroglycerin and it did not help, his blood pressure is high. He came to the emergency room. The patient continues to have chest pain. He said it hurts when he twists or turns or coughs or moves a certain way. The nitroglycerin does not help. MEDICATIONS: He was taking; 1. Aspirin. 2. Clopidogrel. 3. Atorvastatin. 4. Amlodipine. 5. Losartan. ALLERGIES: NONE KNOWN. SOCIAL HISTORY: No alcohol or tobacco. Works at [employer]. PHYSICAL EXAMINATION: GENERAL: This is a pleasant 55-year-old gentleman who said it hurts when he twists or turns. VITAL SIGNS: His blood pressure 146/73, pulse 70. LUNGS: Clear. CARDIAC: Normal S1, normal S2. ABDOMEN: Soft, nontender. EXTREMITIES: There is no edema. LABORATORY DATA: Cardiac enzymes within normal range. The peak was 0.025, which is still normal range. He did have a very high blood pressure initially, his LDL cholesterol is 54. The EKG is unremarkable. ASSESSMENT: 1. Chest pain, appears to be noncardiac. 2. Previous bypass surgery. 3. Patent grafts and catheterization early this year. PLAN: I gave anti-inflammatories. If the patient's pain is relieved, to be okay for to be released home on the same medicines that he was admitted on. Job ID: [id number]
[2020-03-17] MEDS ORDERED: Etodolac ER 400 mg Tablet PO SCH (21:00)
--- NOTE | 2020-03-19 12:44 | EKG ---
Test Reason : Blood Pressure : / mmHG Vent. Rate : 080 BPM Atrial Rate : 080 BPM P-R Int : 150 ms QRS Dur : 088 ms QT Int : 374 ms P-R-T Axes : 072 052 062 degrees QTc Int : 431 ms Normal sinus rhythm Normal ECG Confirmed by DENISE DELUCA ([id number]), newspaper copy editor KAYLI ADAMS ([id number]) on 03/19/2020 12:44:33 PM Referred By: Confirmed By:DENISE DELUCA
== END 2020-03-17 18:01 | disposition home or self-care (01) ==
LOC: ERS 22:52 → 2SW 03-17 00:18
PROVIDERS: ADMIT Internal Medicine; ATTEND Internal Medicine
DX: I25.110 Atherosclerotic heart disease of native coronary artery with unstable angina pectoris (principal); I10 Essential (primary) hypertension; I25.2 Old myocardial infarction; E78.49 Other hyperlipidemia; Z87.891 Personal history of nicotine dependence; Z79.02 Long term (current) use of antithrombotics/antiplatelets; Z79.82 Long term (current) use of aspirin; Z79.899 Other long term (current) drug therapy; Z95.1 Presence of aortocoronary bypass graft; Z20.828 Contact with and (suspected) exposure to other viral communicable diseases
CPT/HCPCS: 36415; 71045; 80048; 80053; 80061; 82550; 83735; 83880; 84443; 84484; 85025; 85379; 87635; 93005; 94760; 96374; 96375; G0378; J1885; J2405; U0003

== ENCOUNTER 2020-08-05 12:41 | Outpatient (CLI) | payer BC ==
[~2020-08-05 12:41] MED LIST: Iopamidol-370 76% 500 ML 1 ML ONE
== END 2020-08-05 12:42 | disposition home or self-care (01) ==
LOC: BICULT 12:41
PROVIDERS: ATTEND Urology
DX: R10.30 Lower abdominal pain, unspecified (principal); N50.819 Testicular pain, unspecified; N28.1 Cyst of kidney, acquired
CPT/HCPCS: 74178; 76870; 93976; Q9967

== ENCOUNTER 2021-01-13 19:25 | Inpatient (IN) | payer BC ==
[2021-01-13 20:09] LABS: #Basophils 0.1 thou/uL (0.0-0.2); #Eosinphils 0.2 thou/uL (0.0-0.7); #Lymphocytes 2.9 thou/uL (1.20-3.40); #Monocytes 0.6 thou/uL (0.11-0.59); #Neutrophils 4.3 thou/uL (1.40-6.50); %Basophils 0.7 % (0.0-1.0); %Eosinophils 2.1 % (0.0-10.0); %Lymphocytes 36.5 % (21.0-51.0); %Monocytes 7.3 % (0.0-10.0); %Neutrophils 53.4 % (42.0-75.0); Hemoglobin 14.3 g/dL (14.0-18.0); Mean Corpuscular Hemoglobin 33.3 pg (27.0-31.0); Mean Corpuscular Volume 95.1 fL (78.0-98.0); Mean Platelet Volume 6.7 fL (7.4-10.4); Platelet Count 237 thou/uL (130-400); RBC Distribution Width 11.9 % (11.5-14.5)
[2021-01-13] MEDS ORDERED: Nitroglycerin 2% Ointment 1 INCH/1 GM Packet ONE (20:27)
[2021-01-13 20:33] LABS: ALT (SGPT) 37 U/L (8-55); AST (SGOT) 29 U/L (5-34); Albumin 4.3 g/dL (3.5-5.0); Alkaline Phosphatase 75 U/L (40-110); Anion Gap 15 mmol/L (10-20); BUN (Urea Nitrogen) 16 mg/dL (8.4-25.7); Bilirubin, Total 0.3 mg/dL (0.2-1.2); Calc. Creatinine Clearance 0 mL/min (70-130); Calcium 9.8 mg/dL (7.8-10.44); Carbon Dioxide 23 mmol/L (22-29); Chloride 106 mmol/L (98-107); Glucose 86 mg/dL (70-105); Potassium 4.9 mmol/L (3.5-5.1); Protein, Total 7.3 g/dL (6.0-8.3); Sodium 139 mmol/L (136-145)
[2021-01-13] MEDS ORDERED: Aspirin Chewable 81 MG TAB ONE (22:25)
[2021-01-13] MEDS ORDERED: HYDROcodone/Acetaminophen 5/325 mg Tablet PO PRN (22:37)
[2021-01-13] MEDS ORDERED: Senokot S 8.6-50 MG TAB PO PRN (22:37)
[2021-01-13] MEDS ORDERED: Ondansetron PF 4 MG/2 ML Vial IVP PRN (22:37)
[2021-01-13] MEDS ORDERED: Melatonin 3 MG TAB PO PRN (22:44)
[2021-01-13] MEDS ORDERED: Nitroglycerin 0.4 MG TAB (25 Tab Bottle) SL PRN (22:44)
[2021-01-13] MEDS ORDERED: Morphine 2 MG/ML VIAL SLOW IVP PRN (22:44)
[2021-01-13] MEDS ORDERED: hydrALAZINE 20 MG/ML VIAL SLOW IVP PRN (22:44)
[2021-01-13] MEDS ORDERED: Morphine 4 MG/ML VIAL SLOW IVP PRN (22:44)
[2021-01-13] MEDS ORDERED: Enoxaparin Sodium 40 MG/0.4 ML SYRINGE SC SCH (23:00)
[2021-01-13 23:42] LABS: Troponin I Less than 0.010 ng/mL (< 0.028)
[2021-01-13 23:49] VITALS: BMI 30.2
[2021-01-14] MEDS: Acetaminophen 325 MG TAB PO PRN ×2 (00:38→14:46)
[2021-01-14 03:03] LABS: Troponin I Less than 0.010 ng/mL (< 0.028)
[2021-01-14 06:20] LABS: #Basophils 0.1 thou/uL (0.0-0.2); #Eosinphils 0.1 thou/uL (0.0-0.7); #Lymphocytes 2.9 thou/uL (1.20-3.40); #Monocytes 0.6 thou/uL (0.11-0.59); #Neutrophils 4.4 thou/uL (1.40-6.50); %Basophils 0.7 % (0.0-1.0); %Eosinophils 1.8 % (0.0-10.0); %Monocytes 7.1 % (0.0-10.0); %Neutrophils 54.5 % (42.0-75.0); Hemoglobin 13.1 g/dL (14.0-18.0); Mean Corpuscular Hemoglobin 32.1 pg (27.0-31.0); Mean Corpuscular Volume 94.6 fL (78.0-98.0); Platelet Count 209 thou/uL (130-400); RBC Distribution Width 11.9 % (11.5-14.5); Red Blood Cell (RBC) Count 4.09 mill/uL (4.70-6.10)
[2021-01-14 06:39] LABS: Anion Gap 10 mmol/L (10-20); BUN (Urea Nitrogen) 17 mg/dL (8.4-25.7); Calc. Creatinine Clearance 114 mL/min (70-130); Calcium 9.2 mg/dL (7.8-10.44); Carbon Dioxide 27 mmol/L (22-29); Chloride 103 mmol/L (98-107); Cholesterol 116 mg/dl (< 200 Desired); Glucose 93 mg/dL (70-105); HDL Cholesterol 29 mg/dL (>60 Neg Risk); LDL Cholesterol, Calculated 48 mg/dL; Potassium 4.2 mmol/L (3.5-5.1); Sodium 136 mmol/L (136-145); Triglycerides 193 mg/dL (Less than 150)
[2021-01-14] MEDS: Gabapentin 300 MG CAP PO SCH ×3 (09:36→20:34)
[2021-01-14] MEDS: Enoxaparin Sodium 40 MG/0.4 ML SYRINGE SC SCH (09:38)
[2021-01-14] MEDS: Famotidine/PF 20 mg/2ml Vial SLOW IVP SCH ×2 (09:48→20:35)
[2021-01-14] MEDS ORDERED: Amlodipine 5 MG TAB PO SCH (13:45)
[2021-01-14] MEDS ORDERED: Aspirin 81 mg Enteric Coated Tablet PO SCH (14:00)
[2021-01-14] MEDS ORDERED: Clopidogrel Bisulfate 75 MG TAB PO SCH (14:45)
[2021-01-14] MEDS: Icosapent Ethyl 1 GM CAPSULE PO SCH ×2 (16:56→20:36)
[2021-01-14 18:42] LABS: SARS-CoV-2 PCR by NAA Not Detected (NotDetected)
[2021-01-14] MEDS: HYDROcodone/Acetaminophen 7.5/325 mg Tablet PO PRN (20:33)
[2021-01-14] MEDS ORDERED: Atorvastatin Calcium 40 MG TAB PO SCH (21:00)
[2021-01-15] MEDS ORDERED: Clopidogrel Bisulfate 75 MG TAB PO SCH (09:00)
[2021-01-15] MEDS ORDERED: Amlodipine 5 MG TAB PO SCH (09:00)
[2021-01-15] MEDS: HYDROcodone/Acetaminophen 7.5/325 mg Tablet PO PRN (09:00)
[2021-01-15] MEDS ORDERED: Aspirin 81 mg Enteric Coated Tablet PO SCH (09:00)
[2021-01-15] MEDS: Gabapentin 300 MG CAP PO SCH (09:01)
[2021-01-15] MEDS: Icosapent Ethyl 1 GM CAPSULE PO SCH (09:01)
[2021-01-15] MEDS: Enoxaparin Sodium 40 MG/0.4 ML SYRINGE SC SCH (09:03)
[2021-01-15] MEDS: Famotidine/PF 20 mg/2ml Vial SLOW IVP SCH (09:05)
[2021-01-15 13:09] VITALS: BP 140/78; TEMP 97.6
[2021-01-16] MEDS ORDERED: FLU VACC QS2021-22(6MOS UP)/PF 60 MCG/0.5 ML SYRINGE IM ONE (21:00)
== END 2021-01-15 13:35 | disposition home or self-care (01) | DRG 303 ==
LOC: ERS 19:25 → OBSVTOIN 22:06 → ERHOLD 22:06 → 2SW 23:14
PROVIDERS: ADMIT Family Medicine; ATTEND Family Medicine
DX: I25.110 Atherosclerotic heart disease of native coronary artery with unstable angina pectoris (principal); I10 Essential (primary) hypertension; N40.0 Benign prostatic hyperplasia without lower urinary tract symptoms; Z20.822 Contact with and (suspected) exposure to COVID-19; E78.5 Hyperlipidemia, unspecified; I25.2 Old myocardial infarction; Z95.5 Presence of coronary angioplasty implant and graft; Z95.1 Presence of aortocoronary bypass graft; Z90.49 Acquired absence of other specified parts of digestive tract; Z87.891 Personal history of nicotine dependence; Z79.01 Long term (current) use of anticoagulants; Z79.82 Long term (current) use of aspirin; Z79.899 Other long term (current) drug therapy; I07.1 Rheumatic tricuspid insufficiency
CPT/HCPCS: 36415; 36416; 71045; 80048; 80053; 80061; 84443; 84484; 85025; 93005; 93306; J1650; S0028; U0003; U0005

== ENCOUNTER 2021-05-20 19:20 | Observation (INO) | payer BC ==
[2021-05-20 20:18] LABS: #Basophils 0.1 thou/uL (0.0-0.2); #Eosinphils 0.2 thou/uL (0.0-0.7); #Lymphocytes 2.6 thou/uL (1.20-3.40); #Monocytes 0.7 thou/uL (0.11-0.59); #Neutrophils 3.8 thou/uL (1.40-6.50); %Basophils 0.8 % (0.0-1.0); %Eosinophils 2.2 % (0.0-10.0); %Lymphocytes 35.8 % (21.0-51.0); %Monocytes 8.9 % (0.0-10.0); %Neutrophils 52.2 % (42.0-75.0); Hemoglobin 13.9 g/dL (14.0-18.0); Mean Corpuscular HGB CONC 34.4 g/dL (32.0-36.0); Mean Corpuscular Hemoglobin 32.3 pg (27.0-31.0); Mean Corpuscular Volume 93.8 fL (78.0-98.0); Mean Platelet Volume 6.6 fL (7.4-10.4); Platelet Count 229 thou/uL (130-400); RBC Distribution Width 11.7 % (11.5-14.5); White Blood Cell (WBC) Count 7.3 thou/uL (4.8-10.8)
[2021-05-20 20:19] LABS: ALT (SGPT) 53 U/L (8-55); AST (SGOT) 31 U/L (5-34); Albumin 4.3 g/dL (3.5-5.0); Alkaline Phosphatase 73 U/L (40-110); Anion Gap 15 mmol/L (10-20); BUN (Urea Nitrogen) 14 mg/dL (8.4-25.7); Bilirubin, Total 0.3 mg/dL (0.2-1.2); Calc. Creatinine Clearance 0 mL/min (70-130); Calcium 9.6 mg/dL (7.8-10.44); Carbon Dioxide 22 mmol/L (22-29); Chloride 104 mmol/L (98-107); Globulin 2.9 g/dL (2.4-3.5); Glucose 86 mg/dL (70-105); Potassium 4.5 mmol/L (3.5-5.1); Protein, Total 7.2 g/dL (6.0-8.3); Sodium 136 mmol/L (136-145)
[2021-05-20] MEDS ORDERED: Aspirin Chewable 81 MG TAB ONE (20:29)
[2021-05-20 20:30] LABS: Lipase 40 U/L (8-78); Magnesium 1.9 mg/dL (1.6-2.6)
[2021-05-20 20:54] LABS: Bilirubin Negative (Negative); Blood, Urine Negative (Negative); Clarity Clear (Clear); Glucose, Urine (Dipstick) Normal (Negative); Ketone, Urine Negative (Negative); Leukocyte Negative Leu/uL (Negative); Nitrite Negative (Negative); Protein, Urine (Dipstick) Negative (Neg-Trace); Specific Gravity, Urine 1.005 (1.002-1.036); Urobilinogen Normal mg/dL (Less than 2)
[2021-05-20 23:21] VITALS: BMI 30.9
[2021-05-20] MEDS ORDERED: Gabapentin 300 MG CAP PO SCH (23:45)
[2021-05-20] MEDS ORDERED: Nitroglycerin 0.4 MG TAB (25 Tab Bottle) SL PRN (23:47)
[2021-05-20] MEDS ORDERED: Ondansetron PF 4 MG/2 ML Vial IVP PRN (23:47)
[2021-05-21 00:10] LABS: Troponin I Less than 0.010 ng/mL (< 0.028)
[2021-05-21] MEDS: Acetaminophen 325 MG TAB PO PRN ×2 (01:28→18:57)
[2021-05-21 02:13] LABS: #Basophils 0.1 thou/uL (0.0-0.2); #Eosinphils 0.2 thou/uL (0.0-0.7); #Lymphocytes 2.7 thou/uL (1.20-3.40); #Monocytes 0.5 thou/uL (0.11-0.59); %Eosinophils 3.3 % (0.0-10.0); %Lymphocytes 41.1 % (21.0-51.0); %Monocytes 7.9 % (0.0-10.0); %Neutrophils 46.7 % (42.0-75.0); Hemoglobin 14.2 g/dL (14.0-18.0); Mean Corpuscular Volume 94.2 fL (78.0-98.0); Mean Platelet Volume 6.4 fL (7.4-10.4); Platelet Count 204 thou/uL (130-400); RBC Distribution Width 11.7 % (11.5-14.5); Red Blood Cell (RBC) Count 4.45 mill/uL (4.70-6.10); White Blood Cell (WBC) Count 6.4 thou/uL (4.8-10.8)
[2021-05-21 02:37] LABS: Troponin I Less than 0.010 ng/mL (< 0.028)
[2021-05-21 02:38] LABS: Anion Gap 11 mmol/L (10-20); BUN (Urea Nitrogen) 13 mg/dL (8.4-25.7); Calc. Creatinine Clearance 106 mL/min (70-130); Calcium 9.3 mg/dL (7.8-10.44); Carbon Dioxide 26 mmol/L (22-29); Cardiac Risk 3.8 (Less than 4.5); Chloride 104 mmol/L (98-107); Cholesterol 123 mg/dl (< 200 Desired); Glucose 178 mg/dL (70-105); HDL Cholesterol 32 mg/dL (>60 Neg Risk); LDL Cholesterol, Calculated 61 mg/dL; Sodium 137 mmol/L (136-145); Triglycerides 150 mg/dL (Less than 150)
[2021-05-21] MEDS ORDERED: Losartan 25 MG TAB PO SCH (09:00)
[2021-05-21] MEDS ORDERED: Amlodipine 5 MG TAB PO SCH (09:00)
[2021-05-21] MEDS ORDERED: Aspirin 81 mg Enteric Coated Tablet PO SCH (09:00)
[2021-05-21] MEDS ORDERED: Cholecalciferol (Vitamin D3) 400 UNITS TAB PO SCH (09:00)
[2021-05-21] MEDS ORDERED: Aspirin Chewable 81 MG TAB PO SCH (09:00)
[2021-05-21] MEDS ORDERED: Tamsulosin HCl 0.4 MG CAP PO SCH (09:00)
[2021-05-21] MEDS ORDERED: Enoxaparin Sodium 40 MG/0.4 ML SYRINGE SC SCH (09:00)
[2021-05-21] MEDS ORDERED: Clopidogrel Bisulfate 75 MG TAB PO SCH (09:00)
[2021-05-21] MEDS: Gabapentin 300 MG CAP PO SCH ×2 (09:24→15:22)
[2021-05-21 15:29] LABS: SARS-CoV-2 PCR by NAA Not Detected (NotDetected)
[2021-05-21 15:54] VITALS: BP 115/71; TEMP 97.6
[2021-05-21] MEDS ORDERED: Atorvastatin Calcium 40 MG TAB PO SCH (21:00)
== END 2021-05-21 07:23 | disposition home or self-care (01) ==
LOC: ERS 19:20 → NEURO 21:30
PROVIDERS: ADMIT Internal Medicine; ATTEND Internal Medicine
DX: R42 Dizziness and giddiness (principal); R20.2 Paresthesia of skin; I25.10 Atherosclerotic heart disease of native coronary artery without angina pectoris; N40.0 Benign prostatic hyperplasia without lower urinary tract symptoms; I11.9 Hypertensive heart disease without heart failure; E11.9 Type 2 diabetes mellitus without complications; G89.29 Other chronic pain; R07.2 Precordial pain; I25.2 Old myocardial infarction; J34.1 Cyst and mucocele of nose and nasal sinus; I08.1 Rheumatic disorders of both mitral and tricuspid valves; D64.9 Anemia, unspecified; Z87.891 Personal history of nicotine dependence; Z79.02 Long term (current) use of antithrombotics/antiplatelets; Z79.82 Long term (current) use of aspirin; Z79.899 Other long term (current) drug therapy; Z95.1 Presence of aortocoronary bypass graft; Z20.822 Contact with and (suspected) exposure to COVID-19
CPT/HCPCS: 36415; 70450; 70551; 71045; 80048; 80053; 80061; 81003; 83690; 83735; 84484; 85025; 93005; 93306; 93880; 96372; G0378; J1650; U0003; U0005

== ENCOUNTER 2021-12-21 10:11 | Observation (INO) | payer BC ==
[2021-12-21 11:15] LABS: #Eosinphils 0.2 thou/uL (0.0-0.7); #Lymphocytes 2.1 thou/uL (1.20-3.40); #Monocytes 0.5 thou/uL (0.11-0.59); #Neutrophils 2.8 thou/uL (1.40-6.50); %Basophils 0.3 % (0.0-1.0); %Lymphocytes 37.1 % (21.0-51.0); %Monocytes 8.6 % (0.0-10.0); %Neutrophils 51.2 % (42.0-75.0); Hemoglobin 13.8 g/dL (14.0-18.0); Mean Corpuscular HGB CONC 33.3 g/dL (32.0-36.0); Mean Corpuscular Hemoglobin 31.9 pg (27.0-31.0); Mean Corpuscular Volume 95.7 fL (78.0-98.0); Mean Platelet Volume 6.8 fL (7.4-10.4); Platelet Count 223 thou/uL (130-400); RBC Distribution Width 12.2 % (11.5-14.5); Red Blood Cell (RBC) Count 4.33 mill/uL (4.70-6.10); White Blood Cell (WBC) Count 5.5 thou/uL (4.8-10.8)
[2021-12-21 11:55] LABS: ALT (SGPT) 29 U/L (8-55); AST (SGOT) 18 U/L (5-34); Alkaline Phosphatase 56 U/L (40-110); Anion Gap 13 mmol/L (10-20); BUN (Urea Nitrogen) 13 mg/dL (8.4-25.7); Bilirubin, Total 0.5 mg/dL (0.2-1.2); Calc. Creatinine Clearance 0 mL/min (70-130); Calcium 9.1 mg/dL (7.8-10.44); Carbon Dioxide 22 mmol/L (22-29); Chloride 106 mmol/L (98-107); Estimated GFR 80; Globulin 2.5 g/dL (2.4-3.5); Glucose 99 mg/dL (70-105); Lipase 25 U/L (8-78); Magnesium 1.9 mg/dL (1.6-2.6); Potassium 4.4 mmol/L (3.5-5.1); Protein, Total 6.5 g/dL (6.0-8.3); Sodium 137 mmol/L (136-145)
[2021-12-21] MEDS ORDERED: Ondansetron ODT 4 MG TAB PO PRN (13:11)
[2021-12-21] MEDS ORDERED: Ondansetron PF 4 MG/2 ML Vial IVP PRN (13:11)
[2021-12-21] MEDS ORDERED: Nitroglycerin 0.4 MG TAB (25 Tab Bottle) SL PRN (13:19)
[2021-12-21 14:24] LABS: Troponin I Less than 0.010 ng/mL (< 0.028)
[2021-12-21 16:33] LABS: Bilirubin Negative (Negative); Blood, Urine Negative (Negative); Clarity Clear (Clear); Glucose, Urine (Dipstick) Normal (Negative); Ketone, Urine Negative (Negative); Leukocyte Negative Leu/uL (Negative); Nitrite Negative (Negative); Protein, Urine (Dipstick) Negative (Neg-Trace); Specific Gravity, Urine 1.023 (1.002-1.036); Urobilinogen Normal mg/dL (Less than 2); pH, Urine 5.5 (5.0-9.0)
[2021-12-21] MEDS: Gabapentin 300 MG CAP PO SCH ×2 (17:06→21:31)
[2021-12-21 17:23] VITALS: BMI 29.9
[2021-12-21 17:34] LABS: Troponin I Less than 0.010 ng/mL (< 0.028)
[2021-12-21] MEDS: Acetaminophen 325 MG TAB PO PRN (18:23)
[2021-12-21] MEDS: Atorvastatin Calcium 40 MG TAB PO SCH (21:31)
[2021-12-22] MEDS: Acetaminophen 325 MG TAB PO PRN ×2 (01:12→21:15)
[2021-12-22 04:38] LABS: #Eosinphils 0.3 thou/uL (0.0-0.7); #Lymphocytes 2.5 thou/uL (1.20-3.40); #Monocytes 0.7 thou/uL (0.11-0.59); #Neutrophils 5.1 thou/uL (1.40-6.50); %Basophils 0.6 % (0.0-1.0); %Eosinophils 2.9 % (0.0-10.0); %Lymphocytes 29.3 % (21.0-51.0); %Monocytes 7.6 % (0.0-10.0); %Neutrophils 59.7 % (42.0-75.0); Hemoglobin 13.7 g/dL (14.0-18.0); Mean Corpuscular HGB CONC 34.6 g/dL (32.0-36.0); Mean Corpuscular Hemoglobin 33.2 pg (27.0-31.0); Mean Corpuscular Volume 96.1 fL (78.0-98.0); Mean Platelet Volume 6.9 fL (7.4-10.4); Platelet Count 210 thou/uL (130-400); RBC Distribution Width 12.1 % (11.5-14.5); Red Blood Cell (RBC) Count 4.12 mill/uL (4.70-6.10); White Blood Cell (WBC) Count 8.5 thou/uL (4.8-10.8)
[2021-12-22 04:59] LABS: Anion Gap 12 mmol/L (10-20); BUN (Urea Nitrogen) 11 mg/dL (8.4-25.7); Calc. Creatinine Clearance 103 mL/min (70-130); Calcium 8.7 mg/dL (7.8-10.44); Carbon Dioxide 23 mmol/L (22-29); Cardiac Risk 7.1 (Less than 4.5); Chloride 103 mmol/L (98-107); Cholesterol 207 mg/dl (< 200 Desired); Estimated GFR 81; Glucose 88 mg/dL (70-105); HDL Cholesterol 29 mg/dL (>60 Neg Risk); LDL Cholesterol, Calculated 142 mg/dL; Potassium 4.1 mmol/L (3.5-5.1); Sodium 134 mmol/L (136-145); Triglycerides 181 mg/dL (Less than 150)
[2021-12-22 07:59] LABS: Magnesium 1.8 mg/dL (1.6-2.6)
[2021-12-22] MEDS ORDERED: Regadenoson 0.4 MG/5 ML SYRINGE ONE (08:21)
[2021-12-22] MEDS ORDERED: Amlodipine 5 MG TAB PO SCH (09:00)
[2021-12-22] MEDS: Aspirin 81 mg Enteric Coated Tablet PO SCH (12:42)
[2021-12-22] MEDS: Gabapentin 300 MG CAP PO SCH ×3 (12:42→21:14)
[2021-12-22] MEDS: Clopidogrel Bisulfate 75 MG TAB PO SCH (12:42)
[2021-12-22] MEDS: Atorvastatin Calcium 40 MG TAB PO SCH (21:14)
[2021-12-23 04:53] LABS: #Eosinphils 0.2 thou/uL (0.0-0.7); #Lymphocytes 2.5 thou/uL (1.20-3.40); #Monocytes 0.5 thou/uL (0.11-0.59); #Neutrophils 3.2 thou/uL (1.40-6.50); %Basophils 0.3 % (0.0-1.0); %Eosinophils 2.8 % (0.0-10.0); %Lymphocytes 39.4 % (21.0-51.0); %Monocytes 8.2 % (0.0-10.0); %Neutrophils 49.3 % (42.0-75.0); Hemoglobin 13.5 g/dL (14.0-18.0); Mean Corpuscular HGB CONC 33.2 g/dL (32.0-36.0); Mean Corpuscular Volume 96.1 fL (78.0-98.0); Mean Platelet Volume 6.6 fL (7.4-10.4); Platelet Count 212 thou/uL (130-400); RBC Distribution Width 12.2 % (11.5-14.5); Red Blood Cell (RBC) Count 4.22 mill/uL (4.70-6.10); White Blood Cell (WBC) Count 6.4 thou/uL (4.8-10.8)
[2021-12-23 05:12] LABS: Anion Gap 13 mmol/L (10-20); BUN (Urea Nitrogen) 11 mg/dL (8.4-25.7); Calc. Creatinine Clearance 98 mL/min (70-130); Calcium 8.7 mg/dL (7.8-10.44); Carbon Dioxide 22 mmol/L (22-29); Chloride 104 mmol/L (98-107); Estimated GFR 76; Glucose 125 mg/dL (70-105); Potassium 3.8 mmol/L (3.5-5.1); Sodium 135 mmol/L (136-145)
[2021-12-23 08:20] VITALS: BP 129/73; TEMP 97.4
[2021-12-23] MEDS: Aspirin 81 mg Enteric Coated Tablet PO SCH (08:44)
[2021-12-23] MEDS: Clopidogrel Bisulfate 75 MG TAB PO SCH (08:45)
[2021-12-23] MEDS: Gabapentin 300 MG CAP PO SCH (08:45)
[2021-12-23] MEDS ORDERED: Ezetimibe 10 MG TAB PO SCH (09:00)
[2021-12-23] MEDS ORDERED: Amlodipine 5 MG TAB PO SCH (09:00)
== END 2021-12-23 10:47 | disposition home or self-care (01) ==
LOC: ERS 10:11 → 2SW 13:09
PROVIDERS: ADMIT Internal Medicine; ATTEND Family Medicine
DX: I25.119 Atherosclerotic heart disease of native coronary artery with unspecified angina pectoris (principal); I16.0 Hypertensive urgency; I10 Essential (primary) hypertension; R10.31 Right lower quadrant pain; R10.32 Left lower quadrant pain; I25.2 Old myocardial infarction; I25.10 Atherosclerotic heart disease of native coronary artery without angina pectoris; N40.0 Benign prostatic hyperplasia without lower urinary tract symptoms; E78.00 Pure hypercholesterolemia, unspecified; Z87.891 Personal history of nicotine dependence; Z79.02 Long term (current) use of antithrombotics/antiplatelets; Z79.82 Long term (current) use of aspirin; Z79.899 Other long term (current) drug therapy; Z95.1 Presence of aortocoronary bypass graft; Z20.822 Contact with and (suspected) exposure to COVID-19
CPT/HCPCS: 36415; 71045; 72192; 78452; 80048; 80053; 80061; 81003; 83690; 83735; 83880; 84100; 84484; 85025; 93005; 93017; 94760; A9500; G0378; J2785; U0003; U0005

== ENCOUNTER 2022-08-17 16:36 | Emergency (ER) | payer BC ==
[2022-08-17 17:16] LABS: #Basophils 0.1 thou/uL (0.0-0.2); #Eosinphils 0.3 thou/uL (0.0-0.7); #Lymphocytes 2.1 thou/uL (1.20-3.40); #Monocytes 0.5 thou/uL (0.11-0.59); #Neutrophils 5.2 thou/uL (1.40-6.50); %Basophils 0.7 % (0.0-1.0); %Eosinophils 4.1 % (0.0-10.0); %Lymphocytes 25.8 % (21.0-51.0); %Monocytes 5.8 % (0.0-10.0); %Neutrophils 63.5 % (42.0-75.0); Hemoglobin 13.9 g/dL (14.0-18.0); Mean Corpuscular HGB CONC 34.3 g/dL (32.0-36.0); Mean Corpuscular Hemoglobin 32.3 pg (27.0-31.0); Mean Platelet Volume 6.6 fL (7.4-10.4); Platelet Count 271 10x3/uL (130-400); RBC Distribution Width 12.3 % (11.5-14.5); Red Blood Cell (RBC) Count 4.29 mill/uL (4.70-6.10); White Blood Cell (WBC) Count 8.1 10x3/uL (4.8-10.8)
[2022-08-17 17:37] LABS: ALT (SGPT) 47 U/L (8-55); AST (SGOT) 34 U/L (5-34); Albumin 4.1 g/dL (3.5-5.0); Alkaline Phosphatase 75 U/L (40-110); Anion Gap 15 mmol/L (10-20); BUN (Urea Nitrogen) 12 mg/dL (8.4-25.7); Bilirubin, Total 0.4 mg/dL (0.2-1.2); Calc. Creatinine Clearance 0 mL/min (70-130); Calcium 9.1 mg/dL (7.8-10.44); Carbon Dioxide 21 mmol/L (22-29); Chloride 104 mmol/L (98-107); Estimated GFR 66; Globulin 2.9 g/dL (2.4-3.5); Glucose 123 mg/dL (70-105); Potassium 4.4 mmol/L (3.5-5.1); Sodium 136 mmol/L (136-145)
== END 2022-08-17 18:40 | disposition home or self-care (01) ==
LOC: ERS 16:36
DX: R60.0 Localized edema (principal); M79.605 Pain in left leg; I25.10 Atherosclerotic heart disease of native coronary artery without angina pectoris; I10 Essential (primary) hypertension; Z87.891 Personal history of nicotine dependence; Z79.82 Long term (current) use of aspirin; Z79.899 Other long term (current) drug therapy
CPT/HCPCS: 71045; 80053; 84484; 85025; 93005

== ENCOUNTER 2022-09-28 16:43 | Emergency (ER) | payer BC ==
[2022-09-28 17:50] LABS: #Basophils 0.1 thou/uL (0.0-0.2); #Eosinphils 0.2 thou/uL (0.0-0.7); #Monocytes 0.7 thou/uL (0.11-0.59); #Neutrophils 3.7 thou/uL (1.40-6.50); %Basophils 0.9 % (0.0-1.0); %Lymphocytes 28.3 % (21.0-51.0); %Monocytes 10.8 % (0.0-10.0); %Neutrophils 56.8 % (42.0-75.0); Hemoglobin 13.5 g/dL (14.0-18.0); Mean Corpuscular HGB CONC 33.3 g/dL (32.0-36.0); Mean Corpuscular Hemoglobin 31.2 pg (27.0-31.0); Mean Corpuscular Volume 93.5 fl (78.0-98.0); Platelet Count 214 10x3/uL (130-400); RBC Distribution Width 12.8 % (11.5-14.5); Red Blood Cell (RBC) Count 4.33 mill/uL (4.70-6.10); White Blood Cell (WBC) Count 6.6 10x3/uL (4.8-10.8)
[2022-09-28 18:15] LABS: ALT (SGPT) 47 U/L (8-55); AST (SGOT) 31 U/L (5-34); Alkaline Phosphatase 70 U/L (40-110); Anion Gap 13 mmol/L (10-20); BUN (Urea Nitrogen) 11 mg/dL (8.4-25.7); Bilirubin, Total 0.5 mg/dL (0.2-1.2); Calc. Creatinine Clearance 0 mL/min (70-130); Calcium 9.4 mg/dL (7.8-10.44); Carbon Dioxide 25 mmol/L (22-29); Chloride 104 mmol/L (98-107); Estimated GFR 60; Globulin 2.6 g/dL (2.4-3.5); Glucose 103 mg/dL (70-105); Protein, Total 6.6 g/dL (6.0-8.3); Sodium 138 mmol/L (136-145)
[2022-09-28] MEDS ORDERED: diphenhydrAMINE 50 MG/ML VIAL ONE (18:48)
[2022-09-28] MEDS ORDERED: Metoclopramide HCl 10 MG/2 ML VIAL ONE (18:48)
[2022-09-28] MEDS ORDERED: Acetaminophen 500 MG TAB ONE (18:48)
[2022-09-28 19:29] LABS: Magnesium 1.9 mg/dL (1.6-2.6)
[2022-09-28 19:30] LABS: CK (CPK) 147 U/L (30-200)
[2022-09-28 20:27] LABS: Bacteria/HPF None Seen HPF (None Seen); Bilirubin Negative (Negative); Blood, Urine Negative (Negative); CAUTI Indications for Culture Dysuria,urgency,freq; Clarity Clear (Clear); Glucose, Urine (Dipstick) Normal (Negative); Ketone, Urine Negative (Negative); Leukocyte Negative Leu/uL (Negative); Nitrite Negative (Negative); Protein, Urine (Dipstick) Negative (Neg-Trace); RBC/HPF None Seen HPF (0-3); Specific Gravity, Urine 1.006 (1.002-1.036); Squamous Epithelial None Seen HPF (0-3); Urobilinogen Normal mg/dL (Less than 2); WBC/HPF 0-3 HPF (0-3)
[2022-09-28 20:40] LABS: Urine Culture Reflex No No
== END 2022-09-28 20:40 | disposition home or self-care (01) ==
LOC: ERS 16:43
DX: R51.9 Headache, unspecified (principal); R42 Dizziness and giddiness; I10 Essential (primary) hypertension; I25.10 Atherosclerotic heart disease of native coronary artery without angina pectoris; I25.2 Old myocardial infarction; Z87.891 Personal history of nicotine dependence; Z95.1 Presence of aortocoronary bypass graft
CPT/HCPCS: 36415; 70450; 71045; 80053; 81001; 82550; 83605; 83735; 84484; 85025; 93005; 94760; 96365; 96366; J1200; J2765

== ENCOUNTER 2022-11-19 18:23 | Emergency (ER) | payer BC ==
[2022-11-19] MEDS ORDERED: Ketorolac Tromethamine 30 MG/ML VIAL ONE (20:52)
== END 2022-11-19 21:54 | disposition home or self-care (01) ==
LOC: ERS 18:23
DX: M25.511 Pain in right shoulder (principal); I10 Essential (primary) hypertension; I25.10 Atherosclerotic heart disease of native coronary artery without angina pectoris; Z87.891 Personal history of nicotine dependence
CPT/HCPCS: 96372; J1885

== ENCOUNTER 2023-01-17 16:09 | Emergency (ER) | payer BC ==
[~2023-01-17 16:09] MED LIST changes: -Iopamidol-370 76% 500 ML 1 ML ONE; +Iopamidol-370 76% 500 ML MDV (1 ML CHARGE) ONE
[2023-01-17 16:41] LABS: #Basophils 0.1 thou/uL (0.0-0.2); #Eosinphils 0.2 thou/uL (0.0-0.7); #Monocytes 1.1 thou/uL (0.11-0.59); #Neutrophils 5.4 thou/uL (1.40-6.50); %Basophils 0.8 % (0.0-1.0); %Eosinophils 2.8 % (0.0-10.0); %Lymphocytes 12.7 % (21.0-51.0); %Monocytes 14.1 % (0.0-10.0); %Neutrophils 69.3 % (42.0-75.0); Hematocrit 37.6 % (42.0-52.0); Hemoglobin 12.2 g/dL (14.0-18.0); Mean Corpuscular HGB CONC 32.4 g/dL (32.0-36.0); Mean Corpuscular Volume 95.7 fl (78.0-98.0); Mean Platelet Volume 8.7 fL (7.4-10.4); Platelet Count 202 10x3/uL (130-400); RBC Distribution Width 13.2 % (11.5-14.5); Red Blood Cell (RBC) Count 3.93 mill/uL (4.70-6.10); White Blood Cell (WBC) Count 7.7 10x3/uL (4.8-10.8)
[2023-01-17 17:09] LABS: Troponin I Less than 0.010 ng/mL (< 0.028)
[2023-01-17 17:10] LABS: ALT (SGPT) 28 U/L (8-55); AST (SGOT) 24 U/L (5-34); Albumin 3.8 g/dL (3.5-5.0); Alkaline Phosphatase 65 U/L (40-110); Anion Gap 15 mmol/L (10-20); BUN (Urea Nitrogen) 12 mg/dL (8.4-25.7); Bilirubin, Total 0.6 mg/dL (0.2-1.2); Calc. Creatinine Clearance 0 mL/min (70-130); Calcium 9.2 mg/dL (7.8-10.44); Carbon Dioxide 23 mmol/L (22-29); Chloride 101 mmol/L (98-107); Estimated GFR 51; Globulin 2.9 g/dL (2.4-3.5); Glucose 129 mg/dL (70-105); Potassium 4.2 mmol/L (3.5-5.1); Protein, Total 6.7 g/dL (6.0-8.3); Sodium 135 mmol/L (136-145)
== END 2023-01-17 19:31 | disposition home or self-care (01) ==
LOC: ERS 16:09
DX: R07.89 Other chest pain (principal); R05.9 Cough, unspecified; R06.02 Shortness of breath; I25.10 Atherosclerotic heart disease of native coronary artery without angina pectoris; I10 Essential (primary) hypertension; E78.5 Hyperlipidemia, unspecified; Z87.891 Personal history of nicotine dependence; Z79.82 Long term (current) use of aspirin; Z79.899 Other long term (current) drug therapy
CPT/HCPCS: 36415; 71045; 71275; 80053; 83880; 84484; 85025; 93005; Q9967